=== PATIENT | male | born 1940 | race American Indian/Alaskan Native ===

== ENCOUNTER → 2024-06-26 16:20 | Outpatient (REF) | payer MEDICARE, BC, SELFPAY | LOC: CLAB 16:20 | DX: H60.332 Swimmer's ear, left ear (principal) | CPT/HCPCS: 87070; 87077 ==

== ENCOUNTER → 2024-06-28 16:29 | Outpatient (REF) | payer MEDICARE, BC, SELFPAY | LOC: RAD 16:29 | PROVIDERS: ATTENDING PHYSICIAN Physician Assistant | DX: H60.332 Swimmer's ear, left ear (principal) | CPT/HCPCS: 70480 ==

== ENCOUNTER → 2024-07-07 11:18 | Outpatient (REF) | payer MEDICARE, OTHER, SELFPAY | LOC: RCS 11:18 | PROVIDERS: ATTENDING PHYSICIAN Internal Medicine Cardiovascular Disease | DX: I35.0 Nonrheumatic aortic (valve) stenosis (principal) | CPT/HCPCS: 93306 ==

== ENCOUNTER 2024-08-24 10:42 | Emergency (ER) | payer MEDICARE, OTHER, BC, SELFPAY ==
[2024-08-24 11:00] VITALS: BP 143/78
--- NOTE | 2024-08-24 11:50 | ED.MUSCINJ ---
HPI-Injury
General
Chief Complaint: Fall
Source: patient and spouse
Exam Limitations: none
Time Seen by Provider: 08/24/24 11:35
Nursing documentation reviewed up to this point in time: agreed with
History of Present Illness-Injury
Is this injury a work related problem?: No
Is pt an associate of [facility]?: No
Initial Injury comments:
84-year-old male presents emergency room due to a fall. He tripped on the steps. He denies hitting his head. He does note that he fell recently. He complains of left shoulder pain.
Past History
Past History
ED Past Medical History: GERD, HTN, Hypercholesterolemia and NIDDM
ED Past Surgical History: Appendectomy
Social History
Tobacco: Non-smoker
Alcohol: None
Drug: None
Personal:
Living: with family
Review of Systems
Review of Systems
Allergies reviewed?: Yes
All Other Systems: Not applicable
Constitutional: Reports no symptoms
EENT: Reports no symptoms
Respiratory: Reports no symptoms
Cardiac: Reports no symptoms
ABD/GI: Reports no symptoms
: Reports no symptoms
Musculoskeletal: Reports joint pain
Skin: Reports no symptoms
Neurological: Reports no symptoms
Endocrine: Reports no symptoms
Hematologic/Lymphatic: Reports no symptoms
Psychiatric: Reports no symptoms
Phy Exam
Physical Exam
Physical Exam:
Physical Exam
General: no apparent distress, not acutely ill
Neck: supple. no meningeal signs. normal posterior pharynx
Heart: s1/s2 regular rate and rhythm, no murmur. equal radial
pulses.
HEENT: Pupils equal round reactive to light, EOMI
Lungs: no acute respiratory distress. clear bilaterally
Abdomen: normal bowel sounds. not tender. no CVAT
Neuro: alert and oriented. no focal neurological deficits cranial nerves II through XII intact
Skin: no rash
Psychiatric: well kept. interactive and cooperative
Extremities: no edema. no calf tenderness. negative homans. good distal pulses, tender to palpation left shoulder, decreased range of motion
Injury Course
Orders/Labs/Results
Orders:
Orders
08/24/24 11:47
Shoulder, Left 2 View CR [CR Shoulder - Left Min 2 View*] Urgent
Comment:
Reason For Exam: fall, left shoulder pain
08/24/24 11:48
CT Head W/o Iv Contrast Urgent
Comment:
Reason For Exam: fall
MDM/Problems Addressed
Differential Diagnosis Includes:
Intracranial hemorrhage, shoulder dislocation, shoulder fracture
MDM/Problems Addressed:
84-year-old male with fall, left shoulder contusion. No fracture or dislocation seen on x-ray. No signs of intracranial hemorrhage. Patient stable for discharge.
*Radiology
Radiology exam reviewed: preliminary read by ED provider (Left shoulder x-ray no fracture or dislocation) and radiology read reviewed (CT head no acute findings)
*Pulse Oximetry
Patient hypoxic: no
*Critical Care Note
Total Time (30-74mins, 75-104mins- exclusive of procedures): Not Applicable
Patient Management
Social determinants of health affecting care: Living situation and Strong social support
Escalation/DeEscalation of care consider admission/obs:
Admission not indicated
ED Attending Note
-
Portions of this chart may have been created with voice recognition software.� Occasional wrong word or��sound alike� substitutions may have occurred due to the inherent limitations of voice recognition software.
Discharge Plan
Departure
Patient Disposition: Home (Routine Discharge)
Date of Disposition: 08/24/24
Time of Disposition: 13:29
Patient with high blood pressure during this ER visit?: Yes
Condition: Good
Discharge Problem:
Contusion of left shoulder, Fall
Instructions: Preventing falls in adults, Shoulder pain, BLOOD PRESSURE
Referrals:
Chad Cortez MD [Active] - Call in 1-3 days for appt
UNKNOWN - PT DOES,NOT KNOW [Family Provider] -
Interventions
Interventions:
*Risk Screen - Suicide Last Done: 08/24/24 11:05
*Neglect/Abuse Screening Last Done: 08/24/24 11:05
Discharge Date and Time
Print Language: ITALIAN
[2024-08-24 13:00] VITALS: BP 134/70
== END 2024-08-24 13:35 | disposition home or self-care (01) ==
LOC: EMR 10:42
PROVIDERS: EMERGENCY PHYSICIAN Emergency Medicine
DX: S40.012A Contusion of left shoulder, initial encounter (principal); W19.XXXA Unspecified fall, initial encounter; K21.9 Gastro-esophageal reflux disease without esophagitis; I10 Essential (primary) hypertension; E78.00 Pure hypercholesterolemia, unspecified; E11.9 Type 2 diabetes mellitus without complications; Z90.49 Acquired absence of other specified parts of digestive tract
CPT/HCPCS: 99284; 70450; 73030

== ENCOUNTER → 2024-10-10 11:28 | Outpatient (REF) | payer MEDICARE, OTHER, SELFPAY | LOC: HWRAD 11:28 | PROVIDERS: ATTENDING PHYSICIAN Specialist; FAMILY PHYSICIAN Family Medicine | DX: I10 Essential (primary) hypertension (principal); E87.5 Hyperkalemia | CPT/HCPCS: 76770 ==

== ENCOUNTER 2024-10-11 22:54 | Inpatient (IN) | payer MEDICARE, BC, SELFPAY ==
[2024-10-11] VITALS (7 sets, daily range): BP systolic 125–169; BP diastolic 65–82; BMI 24.6
[2024-10-11 17:24] LABS: % Basophils 0.2 % (0-2); % Eosinophils 0.9 % (0-6); % Immature Granulocytes 1.1 % (0-0.5); % Lymphocytes 20.5 % (20.5-51.1); % Monocytes 17.7 % (1.7-9.3); % Neutrophils 59.6 % (42.2-75.2); Absolute Eosinophils 0.1 10^3/uL (0-0.7); Absolute Immature Granulocytes 0.1 10^3/uL (0-0.05); Absolute Lymphocytes 2.5 10^3/uL (1.2-3.4); Absolute Monocytes 2.2 10^3/uL (0.1-0.6); Absolute Neutrophils 7.4 10^3/uL (1.4-6.5); Hematocrit 39.4 % (39.0-52.0); Hemoglobin 13.5 g/dL (13.0-18.0); Mean Corp Hgb Conc. 34.3 g/dL (33.0-37.0); Mean Corpuscular Hgb 29.4 pg (27.0-31.0); Mean Corpuscular Volume 85.8 fL (80.0-94.0); Mean Platelet Volume 11.1 fL (7.4-10.4); Nucleated Red Blood Cells % 0 % (-); Platelet Count 213 10^3/uL (130-400); Red Blood Cell Count 4.59 10^6/uL (4.70-6.10); Red Cell Dist. Width 14.8 % (11.5-14.5); White Blood Cell Count 12.4 10^3/uL (4.8-10.8)
[2024-10-11 17:26] LABS: COVID-19 Antigen Negative (Negative)
[2024-10-11 17:33] LABS: ALT (SGPT) 25 U/L (0-50); AST (SGOT) 24 U/L (17-59); Albumin 3.8 g/dl (3.5-5.0); Alkaline Phosphatase 45 U/L (38-126); Blood Urea Nitrogen 44 mg/dl (9-20); Calcium 8.7 mg/dl (8.4-10.2); Carbon Dioxide 17 mmol/L (22-30); Chloride 105 mmol/L (98-107); Glucose 49 mg/dl (70-99); Potassium 4.7 mmol/L (3.5-5.1); Sodium 132 mmol/L (135-145); Total Bilirubin 0.4 mg/dl (0.2-1.3); Total Protein 6.7 g/dl (6.3-8.2); eGFR 49.25
[2024-10-11 18:00] LABS: Glucose - Point of Care 85 mg/dl (70-99)
--- NOTE | 2024-10-11 18:30 | ED.GENMED ---
History of Present Illness
General
Chief Complaint: Breathing Problem
Source: patient
Exam Limitations: none
Time Seen by Provider: 10/11/24 18:06
Nursing documentation reviewed up to this point in time: agreed with
History of Present Illness
History of Present Illness:
Patient presents to ED secondary to 3-day history of persistent cough, associated with wheezing and generalized weakness. Patient denies loss of appetite. Denies fever or chills. Denies nausea, vomiting, or diarrhea. Denies sick contact. Denies
recent travel. Denies headache. Denies sore throat. Today, patient also is complaining of lower leg weakness, similar to what he experienced when he had COVID-19 infection couple years ago.
Past History
Past History
ED Past Medical History: GERD, HTN, Hypercholesterolemia and NIDDM
ED Past Surgical History: Appendectomy
Social History
Tobacco: Non-smoker
Alcohol: None
Drug: None
Personal:
Living: with family
Review of Systems
Review of Systems
Allergies reviewed?: Yes
All Other Systems: ROS reviewed and negative except as documented in HPI and ROS
Constitutional: Reports no symptoms
EENT: Reports no symptoms
Respiratory: Reports cough and trouble breathing
Cardiac: Reports no symptoms
ABD/GI: Reports no symptoms
Musculoskeletal: Reports no symptoms
Skin: Reports no symptoms
Neurological: Reports no symptoms
Phy Exam
Physical Exam
Physical Exam:
Physical Exam
General: moderate distress, not acutely ill. afebrile
Head: nc/at. eomi
Neck: supple. no meningeal signs.
Heart: s1/s2 regular rate and rhythm, no murmur.
Lungs: mild respiratory distress. expiraotry wheezing bilaterally
Abdomen: normal bowel sounds. not tender.
Neuro: alert and oriented x 3. no focal neurological deficits
Skin: no rash
Psychiatric: well kept. interactive and cooperative
Extremities: no edema. no calf tenderness.
Scores
Heart Failure Risk
Heart Failure Risk Score: Not Applicable
Course
Orders/Labs/Results
Orders:
Orders
10/11/24 17:03
COVID-19 Antigen Urgent
Source: Nasal Swab
Complete Blood Count/With Diff Urgent
Comprehensive Metabolic Panel Urgent
Influenza A+B Rapid Molecular Urgent
JESSICA Source: Nasal Swab
Specimen Description:
10/11/24 18:06
CR Chest - 2 Views Urgent
Comment:
Reason For Exam: cough/sob
10/11/24 20:20
Guaifenesin/Codeine Solution [Robitussin AC] 10 ml PO NOW STA
Ipratropium/Albuterol Sulfate [Duoneb] 3 ml INH R NOW STA
10/11/24 21:24
CT Head W/o Iv Contrast Urgent
Comment:
Reason For Exam: slurred speech
Ipratropium/Albuterol Sulfate [Duoneb] 3 ml INH R NOW STA
10/11/24 21:25
Azithromycin 500 mg/250 ml [Zithromax Infusion] 500 mg in 250 ml IV NOW
Dexamethasone Sod Phosphate [Decadron] 6 mg IV NOW STA
10/11/24 22:00
Flush (0.9% Sodium Chloride) [Flush (Nss)] See Dose Instructions IV PER PROTOCOL
10/11/24 22:08
Admit/Transfer Patient As Directed
Co-Sign Provider:
Level of Care: Inpatient admission
Assign to:: Medical/Surgical
Physician / Group: Charla
Diagnosis: Acute Bronchitis
Reason for Hospitalization: IV steroids, nebs
Expected length of stay greater than two midnights?: Yes
ELOS- Estimated Length of Stay in days: 3
I certify the patient meets the requirements for IP care: Yes
10/11/24 22:09
PRN Pain Medication Management As Directed
May give lesser potent ordered pain med per pt: Yes
preference::
Protocol:: Medication orders for pain may be administered in a
manner that supports deferring to patient preference
when the pt is:
- Requesting an ordered lesser potent pain medication.
Least to most potent pain medications are defined
as: acetaminophen < NSAID < tramadol < opioids
(morphine, oxycodone, hydromorphone).
- Requesting a lesser dose of the same medication IF
ORDERED.
- Requesting a less intrusive route of administration
if both routes are prescribed by the provider (PO <
IV).
10/11/24 22:15
Code Status As Directed
Resuscitation Status: Full Code
Abnormal Lab Results
10/11/24
17:03
WBC 12.4 H 10^3/uL
(4.8-10.8)
RBC 4.59 L 10^6/uL
(4.70-6.10)
RDW 14.8 H %
(11.5-14.5)
MPV 11.1 H fL
(7.4-10.4)
Abs Immat Gran (auto) 0.1 H 10^3/uL
(0-0.05)
Absolute Neuts (auto) 7.4 H 10^3/uL
(1.4-6.5)
Absolute Monos (auto) 2.2 H 10^3/uL
(0.1-0.6)
Immature Gran % 1.1 H %
(0-0.5)
Monocytes % 17.7 H %
(1.7-9.3)
Sodium 132 L mmol/L
(135-145)
Carbon Dioxide 17 L mmol/L
(22-30)
BUN 44 H mg/dl
(9-20)
Creatinine 1.4 H mg/dL
(0.7-1.3)
Glucose 49 L* mg/dl
(70-99)
10/11/24 17:03
10/11/24 17:03
Vital Signs
Initial and Last Documented VS:
Initial Vital Signs
Temp Pulse Resp BP Pulse Ox
97.6 F 65 16 149/68 98
10/11/24 16:52 10/11/24 16:52 10/11/24 16:52 10/11/24 16:52 10/11/24 16:52
Last Documented Vital Signs
Temp Pulse Resp BP Pulse Ox
97.6 F 61 13 146/68 96
10/11/24 16:52 10/11/24 22:00 10/11/24 21:45 10/11/24 22:00 10/11/24 22:00
MDM/Problems Addressed
MDM/Problems Addressed:
Patient with persistent wheezing with tachypnea despite treatment. Chest x-ray does not reveal acute findings. Patient's presenting symptoms likely acute bronchitis with wheezing. Patient's subjective lower extremity weakness, likely secondary to
current illness, but will need to be reassessed during hospitalization. In addition, blood sugar to be monitored closely, with presenting hypoglycemia.
*Critical Care Note
Total Time (30-74mins, 75-104mins- exclusive of procedures): Not Applicable
ED Attending Note
-
Portions of this chart may have been created with voice recognition software.� Occasional wrong word or��sound alike� substitutions may have occurred due to the inherent limitations of voice recognition software.
Discharge Plan
Departure
Patient Disposition: Admit
Date of Disposition: 10/11/24
Time of Disposition: 21:29
Admit to: Telemetry
Presentation/result/management discussed w/ accepting MD/DO: Hospitalist
Discharge Problem:
Acute bronchitis, Hypoglycemia, Weakness
Interventions
Interventions:
*Risk Screen - Suicide Last Done: 10/11/24 16:52
*General Assessment Last Done: 10/11/24 16:52
*Neglect/Abuse Screening Last Done: 10/11/24 16:52
*ED COVID-19 Vaccine History Last Done: 10/11/24 18:02
ED- Cardiac Assessment Last Done: 10/11/24 18:02
ED- Pulmonary Assessment Last Done: 10/11/24 18:02
[2024-10-11 19:03] LABS: Glucose - Point of Care 85 mg/dl (70-99)
[2024-10-11] MEDS: DUONEB 3 ML INH ×2 (20:24→22:11)
[2024-10-11] MEDS: ROBITUSSIN AC 10 ML PO (20:24)
[2024-10-11 21:14] LABS: Glucose - Point of Care 76 mg/dl (70-99)
--- NOTE | 2024-10-11 21:32 | HPS.HSE ---
Family Physician
-
Family Physician: Ollie Oates
Chief Complaint
-
Cough
History of Present Illness
Patient is an 84 y/o male past medical history of valvular heart disease, hypertension, hyperlipidemia, diabetes mellitus, diabetic neuropathy and hypothyroidism who presents with cough. Patient reports cough for the past three days which he
describes as occasionally productive. He notes audible wheezing and increasing shortness of breath. He denies fever, sweats or chills. He reports lower extremity weakness over the past few days with inability to stand from a seated position and
inability to ambulate. Daughter at bedside notes slurred speech, which according to patient's has been present for the past few days.
Medical History
Past Medical History
Past Medical History: Reports Other
Additional Past Medical History:
Valvular Heart Disease: Mild/Moderate Aortic Stenosis, Mild/Moderate Tricuspid Regurgitation
Essential Hypertension
Hyperlipidemia
Diabetes Mellitus, Type II
Diabetic Neuropathy
Hypothyroidism
GERD
Glaucoma
Past Surgical History: Reports Other
Additional Past Surgical History:
Appendectomy
Social History
Tobacco: Non-smoker
Alcohol: Occasional
Family History
Family History: Not pertinent
Allergies / Home Medications
Allergies reflects when Allergies were last updated in [employer].
Home Medications with original date entered in [employer]
Allergy/Medication List:
Allergies
Allergy/AdvReac Type Severity Reaction Status Date / Time
No Known Allergies Allergy Verified 10/11/24 16:56
Home Medications
amlodipine 5 mg tablet 2.5 mg PO DAILY 10/11/24
carvedilol 6.25 mg tablet 6.25 mg PO BID 10/11/24
coenzyme Q10 100 mg capsule (CoQ-10) 200 mg PO BID 10/11/24
dorzolamide 22.3 mg-timolol 6.8 mg/mL eye drops 1 drp ophthalmic (eye) BID 10/11/24
ergocalciferol (vitamin D2) 1,250 mcg (50,000 unit) capsule (Vitamin D2) 1,250 mcg PO WAITE 10/11/24
ezetimibe 10 mg tablet 10 mg PO DAILY 10/11/24
fexofenadine 180 mg tablet 180 mg PO DAILY 10/11/24
folic acid 1 mg tablet 2 mg PO DAILY 10/11/24
glipizide 2.5 mg tablet, extended release 24 hr 2.5 mg PO BID 10/11/24
lansoprazole 30 mg capsule,delayed release 30 mg PO DAILY 10/11/24
latanoprost 0.005 % eye drops (Xalatan) 1 drp ophthalmic (eye) HS 10/11/24
levothyroxine 50 mcg tablet 50 mcg PO DAILY 10/11/24
lisinopril 20 mg tablet 20 mg PO DAILY 10/11/24
pitavastatin calcium 4 mg tablet 4 mg PO DAILY 10/11/24
pregabalin 100 mg capsule 100 mg PO Q12H 10/11/24
sitagliptin phosphate 100 mg tablet (Januvia) 100 mg PO DAILY 10/11/24
Review of Systems
-
A 12 point ROS was completed and negative except as noted: Yes
Constitutional: Denies Fever
Respiratory: Reports Cough and Trouble Breathing
Cardiac: Denies Chest Pain or Palpitations
Physical Exam
Vital Signs
Vital Signs
Temp Pulse Resp BP Pulse Ox
97.6 F 65 16 152/74 98
10/11/24 16:52 10/11/24 18:01 10/11/24 18:02 10/11/24 18:00 10/11/24 18:01
Physical Exam
General: Comfortable and Conversant
HEENT: Anicteric and Moist mucous membranes
Respiratory: Wheezes (Diffuse) and Non Labored Respirations
Cardiac: S1/S2, Regular Rhythm and Murmur
GI: Soft and Non Tender
Rectal: Deferred by Provider
Musculoskeletal: No Clubbing, No Cyanosis and No Edema
Skin: Warm and Dry
Neuro: Awake, Alert, Oriented and Nonfocal/grossly intact
Laboratory Results
-
10/11/24 17:03
10/11/24 17:03
Laboratory Results
Total Bilirubin 0.4 mg/dl (0.2-1.3) 10/11/24 17:03
AST 24 U/L (17-59) 10/11/24 17:03
ALT 25 U/L (0-50) 10/11/24 17:03
Alkaline Phosphatase 45 U/L (38-126) 10/11/24 17:03
Data Reviewed
-
Diagnostic Radiology: Image Personally Visualized and interpreted
CT Scan: Other (Head CT Pending)
Lab Data: Labs Reviewed by me
Impression/Plan
-
Acute Bronchitis
-Continue Decadron 4mg q8h
-Continue DuoNeb WID and PRN
-Continue Mucinex
-Encourage use of incentive spirometer and acapella
Elevated Creatinine, suspect underlying CKD
-Hold Lisinopril
-Recheck labs in AM
Slurred Speech / Lower Extremity Weakness, doubt acute stroke
-Await Head CT
-Consult PT/OT and Speech
Diabetes Mellitus, Type II
-Patient initially with hypoglycemia upon presentation
-Hold Glipizide and Januvia
-Check HgbA1c
-Monitor sugars and continue coverage insulin
Valvular Heart Disease: Mild/Moderate Aortic Stenosis, Mild/Moderate Tricuspid Regurgitation
-Monitor Is&Os and Daily Weights
Essential Hypertension
-Continue amlodipine and carvedilol
-Hold lisinopril
Hyperlipidemia
-Continue Zetia and Pitavastatin
Diabetic Neuropathy
-Continue Lyrica
Hypothyroidism
-Continue levothyroxine
GERD
-Continue PPI
Glaucoma
-Continue Xalatan and Dorzolamide/Timolol
DVT proph: SC Heparin
Code Status: Full Code
[2024-10-11] MEDS: DECADRON 6 MG IV (22:14)
[2024-10-11] MEDS: ZITHROMAX INFUSION 250 IV (22:17)
--- NOTE | 2024-10-11 22:20 | W.PN.UPDATE ---
Addendum entered and electronically signed by Lakesha Dunham MD 10/11/24 22:29:
Check Speech and swallow. PT/OT.
Original Note:
Update Note
Progress Note Update
This is an addendum to the H&P written by Marie Martinez on 10/11/2024. Patient seen and examined independently with PA.
84-year-old male past medical history of hypertension, GERD, hypercholesteremia, diabetes, diabetic neuropathy presenting with 3-day history of cough, wheezing and weakness. No fevers or chills or nausea vomiting or diarrhea. No sick contacts. No
headache.
Patient also with bilateral leg weakness for a week when he ambulates. 3 days of slurred speech.
COVID and influenza are negative. Chest x-ray appears to show no infiltrate although report pending.
Labs show leukocytosis. Creatinine of 1.4 which seems to be CKD as per external medical summary and patient.
Blood sugar of 49.
Presentation consistent with acute bronchitis. DuoNebs, dexamethasone. Hold further azithromycin given in ER. Leukocytosis likely due to recent Medrol Dosepak. No focal neurological deficits to suggest stroke.
Patient also with hypoglycemia which improved with eating. A1c of 7.1 two months ago. Hold glipizide and Januvia for now, likely does not need glipizide moving forward
CT head pending to evaluate weakness and change in speech. Think that he can follow-up with neurology as outpatient if he continues to have the symptoms.
Hold lisinopril for now although creatinine 1.4 likely CKD.
[2024-10-12] MEDS: COSOPT EYE DROPS 1 DROP OPHTH ×3 (00:58→20:06)
[2024-10-12] MEDS: XALATAN OPHTHALMIC SOLUTION 1 DROP OPHTH ×2 (00:58→20:06)
[2024-10-12 03:14] LABS: Glucose - Point of Care 185 mg/dl (70-99)
[2024-10-12 03:29] VITALS: BP 155/76
[2024-10-12] MEDS: DECADRON 4 MG IV ×3 (05:59→20:06)
[2024-10-12] MEDS: SYNTHROID 50 MCG PO (05:59)
--- NOTE | 2024-10-12 06:18 | PTCARENOTE ---
Pt received from ER aaox3 able to make his needs known.Denies pain. Pt was a pullover from stretcher.Pt maintained on fall precautions.GUM WORKER made aware of no [facility] ordered for pt. Pt resting comfortably.Plan of care continued.
[2024-10-12 07:32] VITALS: BP 155/76
[2024-10-12 07:55] LABS: Hematocrit 40.5 % (39.0-52.0); Hemoglobin 14.1 g/dL (13.0-18.0); Mean Corp Hgb Conc. 34.8 g/dL (33.0-37.0); Mean Corpuscular Hgb 29.3 pg (27.0-31.0); Mean Platelet Volume 12.3 fL (7.4-10.4); Platelet Count 200 10^3/uL (130-400); Red Blood Cell Count 4.82 10^6/uL (4.70-6.10); Red Cell Dist. Width 14.6 % (11.5-14.5); White Blood Cell Count 8.4 10^3/uL (4.8-10.8)
[2024-10-12 07:57] LABS: Blood Urea Nitrogen 39 mg/dl (9-20); Calcium 9.1 mg/dl (8.4-10.2); Carbon Dioxide 16 mmol/L (22-30); Chloride 109 mmol/L (98-107); Estimated Creatinine Clearance 44 ml/min; Glucose 209 mg/dl (70-99); Magnesium 2.1 mg/dl (1.6-2.3); Potassium 5.2 mmol/L (3.5-5.1); Sodium 137 mmol/L (135-145); eGFR > 60.00
[2024-10-12] MEDS: DUONEB 3 ML INH ×4 (07:57→19:52)
[2024-10-12 08:10] LABS: Glucose - Point of Care 195 mg/dl (70-99)
[2024-10-12 09:03] VITALS: BMI 24.4
[2024-10-12] MEDS: HEPARIN SC ×4 (09:18→21:33)
[2024-10-12] MEDS: FOLVITE 2 MG PO (09:21)
[2024-10-12] MEDS: MUCINEX 600 MG PO ×2 (09:21→20:06)
[2024-10-12] MEDS: LOW STRENGTH ASPIRIN 81 MG PO (09:21)
[2024-10-12] MEDS: COREG 6.25 MG PO ×2 (09:21→20:06)
[2024-10-12] MEDS: NORVASC 2.5 MG PO (09:21)
[2024-10-12] MEDS: LYRICA 100 MG PO ×2 (09:22→20:05)
[2024-10-12] MEDS: LIPITOR 20 MG PO (09:22)
[2024-10-12] MEDS: CLARITIN 10 MG PO (09:22)
[2024-10-12] MEDS: FLUSH (NSS) 1 FLUSH IV ×2 (09:22→13:51)
[2024-10-12] MEDS: PROTONIX 40 MG PO (09:22)
--- NOTE | 2024-10-12 09:23 | W.PN.HOSP.TC ---
Addendum entered and electronically signed by Junito Anderson MD 10/12/24 22:31:
Attending Addendum-
I saw and evaluated the patient. I reviewed the resident�s note and agree with findings and plan as documented in the resident�s note. Sub: Seen with present. Patient shea he feels weak SOB and 'run down' Complains of non productive cough. Full
12 point ROS reviewed and negative except as documented Exam: Vitals reviewed in chart GEN-NAD Heart RRR 3/6 SM @ RUSB lungs scattered expiratory wheeze abd soft LE no edema
Plan:
#Acute Bronchitis-likely viral
-on RA
-flu and covid negative
-Continue Decadron 4mg q8h
-Continue DuoNeb WID and PRN
-Continue Mucinex
-Encourage use of incentive spirometer and acapella
-check procal
-hold on abx for now
# Leukocytosis
- resolved
- check CBC in am
# URIEL
- prerenal
- resolving
- cont to Hold Lisinopril
- Recheck labs in AM
# Hyperkalemia
- hold lisinopril
- hold on lokelma for now
- repeat BMP in am
# Diabetes Mellitus, Type II
-Patient initially with hypoglycemia now hyperglycemic likely due to steroids
-restart januvia
-Hold Glipizide
-[id number]
-Monitor sugars and continue SSI
# Valvular Heart Disease: Mild/Moderate Aortic Stenosis, Mild/Moderate Tricuspid Regurgitation
-Monitor Is&Os and Daily Weights
# Essential Hypertension
-Continue amlodipine and carvedilol
-Hold lisinopril
# Hyperlipidemia
-Continue Zetia and Pitavastatin
# Diabetic Neuropathy
-Continue Lyrica
# Hypothyroidism
-Continue levothyroxine
# GERD
-Continue PPI
# Glaucoma
-Continue Xalatan and Dorzolamide/Timolol
DVT proph: SC Heparin
Code Status: Full Code
ACP
Patient consented to discuss, was with , time spent explanation of advance directives, changes in health status, patient�s health care wishes if the patient becomes unable to make health decisions, goals of care, code status, and prognosis 'yes
its ok to intubate if needed'- 16 minutes
Time spent coordinating care, review of plan of care with resident, personally reviewed previous records in EMR, med rec, labs, radiology, d/w nursing, family total time documented is exclusive of any additional time listed that was spent in advance
care planning discussion -�55 minutes
Original Note:
Today's Communication/Plan
-
procal
restart januvia
hold lisinopril and glipizide
Assessment / Plan
Assessment / Plan
84-year-old male past medical history of hypertension, GERD, hypercholesteremia, diabetes, diabetic neuropathy presented with 3-day history of cough, wheezing and weakness.
# Acute bronchitis
# Shortness of breath
-- COVID and flu negative
-- Chest x-ray with no cardiopulmonary process
-- continue DuoNebs, dexamethasone 4mg q8
-- Status post azithromycin in the ER
-- Encourage incentive spirometer
-- Continue Mucinex
-- check procal
# metabolic acidosis
-- improving
-- continue to monitor for now
# Leukocytosis
-- resolved
# Bilateral leg weakness
--No focal neurological deficits on physical exam
-- ct: No acute intracranial abnormality noted. Chronic microvascular white matter ischemic disease. Atrophy.
-- Consider follow-up with neurology as outpatient
-- PT OT eval
# Valvular heart disease
-- Echocardiogram 06/2024 was unremarkable with only mild or [id number] tricuspid and aortic disease.
-- Repeat testing in 2 years, per cardiology from record review.
# Slurred speech
-- Resolved per patient
-- speech/swallow recs regular with thin liquids.
# CKD; unclear
-- Elevated potassium of 5.2
-- Hold lisinopril
# Diabetes mellitus
# Hypoglycemia
-- HbA1c; 7.1 2 months ago per chart review
-- Current A1c is 6.6
-- Home regimen includes Januvia and glipizide;
-- GLipizide hold for now
-- he is now hyperglycemic- restart januvia and sliding scale
# Essential hypertension
--Continue amlodipine 2.5 mg, carvedilol 6.25 mg
--Hold lisinopril
#Glaucoma
--Continue Xalatan and Dorzolamide/Timolol
# GERD-continue lansoprazole
# Diabetic neuropathy-continue pregabalin
# Hypothyroidism-continue levothyroxine
# Hyperlipidemia-continue pitavastatin and Zetia
DVT prophylaxis SC heparin
Full code
Anticipated Discharge: Within 24 hours
Subjective/Interval History
-
Date of Service: October 12, 2024
Complains of ongoing wheezing, trouble breathing and cough.
Reports no concern with swallowing and speech
Complains of some weakness in bilateral lower extremities for last few days
Objective Data
-
Labs:
Laboratory Results
10/12/24
06:56
WBC 8.4
Hgb 14.1
Hct 40.5
Plt Count 200
Sodium 137
Potassium 5.2 H
Chloride 109 H
Carbon Dioxide 16 L
BUN 39 H
Creatinine 1.1
Glucose 209 H
Calcium 9.1
Vital Signs:
Vital Signs
Temp Pulse Resp BP Pulse Ox
98.4 F 73 16 155/76 97
10/12/24 07:32 10/12/24 07:59 10/12/24 07:59 10/12/24 07:32 10/12/24 08:49
I&O
10/11/24 10/12/24 10/13/24
06:59 06:59 06:59
Output Total 300 / 300
Balance -300 / -300
Review of Systems
-
History Source: Patient
Constitutional: Reports No Symptoms
EENT: Reports No Symptoms Reported
Respiratory: Reports Cough, Trouble Breathing and Wheezing
Cardiac: Reports No Symptoms
Abdomen/GI: Reports No Symptoms
Genitourinary: Reports No Symptoms
Skin: Reports No Symptoms
Neuro: Reports Weakness (Lower extremity)
Hematologic / Lymphatic: Reports No Symptoms
Physical Exam
-
General: Well Developed, Well Nourished, Respiratory Distress and Conversant
HEENT: Normocephalic and Atraumatic
Respiratory: Wheezes (Diffused left-sided)
Cardiac: Regular Rhythm and S1/S2
GI: Soft, Nontender and Nondistended
Musculoskeletal: No Clubbing, No Cyanosis and No Edema
Skin: Warm and Dry
Neuro: Awake, Alert, Oriented, No Motor Deficits and No Sensory Deficits
Psych: Calm
Data Reviewed
-
Diagnostic Radiology: Report Reviewed by me
CT Scan: Report Reviewed by me
Ultrasound: Report Reviewed by me
Labs: Labs Reviewed by me, Discussed with Physician and Discussed with Patient
[2024-10-12 09:43] LABS: Glycohemoglobin (HgbA1c) 6.6 % (4.0-5.6)
[2024-10-12] MEDS: NOVOLOG FLEXPEN-LOW RESISTANCE 1 UNITS SC (10:10)
--- NOTE | 2024-10-12 10:18 | PTOTSP ---
Speech Therapy Evaluation:
Pt presents with oropharyngeal swallow function that was WFL at bedside. Adequate oral phase and no overt s/sx of aspiration with thin liquids or regular solids. Pt passed 3oz swallow screen, CXR without acute cardiopulmonary process, and WBC WNL.
In regard to slurred speech, pt reported this was d/t his mouth being dry, which has completely resolved. Pt 100% intelligible at the conversation level and head CT negative for acute intracranial abnormality.
Recommend:
1. Continue regular solids and thin liquids
2. Medications as tolerated
3. General aspiration and reflux precautions
4. Oral care 3x/daily
5. HR DIRECTOR to s/o - please reconsult if indicated
[2024-10-12 11:46] LABS: Glucose - Point of Care 295 mg/dl (70-99)
[2024-10-12] MEDS: JANUVIA 100 MG PO (12:19)
[2024-10-12] MEDS: NOVOLOG FLEXPEN-LOW RESISTANCE 3 UNITS SC (13:50)
[2024-10-12 13:56] LABS: Procalcitonin < 0.05 ng/ml (0.0-0.25)
[2024-10-12 14:50] VITALS: BP 136/68; BP 160/78; PULSE 65; PULSE 71; O2SAT 98
[2024-10-12 15:00] VITALS: BP 136/68; BP 160/78; PULSE 67; PULSE 71; O2SAT 98
[2024-10-12 15:50] VITALS: BP 144/67
--- NOTE | 2024-10-12 16:27 | PTCARENOTE ---
Pt AAO x3, SMILEY; OOB in room/to chair with walker/PT; kenrick well, pt c/o 'legs weak'. Speech clear; NIHSS 2 (Lt eye blind). VSS. On room air- pulse ox 99%, no SOB noted. Abd large, soft, kenrick PO well. Voids clear yellow urine in urinal. Resting
comfortably at present. Will continue to monitor.
[2024-10-12 16:40] LABS: Glucose - Point of Care 215 mg/dl (70-99)
[2024-10-12] MEDS: NOVOLOG FLEXPEN-LOW RESISTANCE 2 UNITS SC (17:32)
[2024-10-12 21:08] LABS: Glucose - Point of Care 260 mg/dl (70-99)
[2024-10-12 23:22] VITALS: BP 144/74
[2024-10-13] MEDS: SYNTHROID 50 MCG PO (05:50)
[2024-10-13] MEDS: DECADRON 4 MG IV (05:50)
[2024-10-13 05:54] VITALS: BMI 24.1
--- NOTE | 2024-10-13 07:11 | W.PN.HOSP.TC ---
Addendum entered and electronically signed by Junito Anderson MD 10/13/24 22:06:
Attending Addendum-
I saw and evaluated the patient. I reviewed the resident�s note and agree with findings and plan as documented in the resident�s note. Sub: Feels great. wants to go home. Denies cough SOB fevers chills. Full 12 point ROS reviewed and negative
except as documented Exam: Vitals reviewed in chart GEN-NAD Heart RRR 3/6 SM @ RUSB lungs CTA B/L abd soft LE no edema
Plan:
#Acute Bronchitis-likely viral
-on RA
-flu and covid negative
-Continue DuoNeb WID and PRN
-Continue Mucinex
-Encourage use of incentive spirometer and acapella
-procal-neg
-hold on abx for now
# Leukocytosis
- from steroids
- check CBC as OP
# Metabolic Acidosis
- from URIEL
- repeat BMP as OP
# URIEL
- prerenal
- resolved
- cont to Hold Lisinopril
- Recheck labs as OP
# Hyperkalemia
- resolved
- hold lisinopril
- hold on lokelma for now
- repeat BMP as OP
# Diabetes Mellitus, Type II
-Patient initially with hypoglycemia now hyperglycemic likely due to steroids
-restart januvia
-restart Glipizide
-[id number]
-Monitor sugars and continue SSI
# Valvular Heart Disease: Mild/Moderate Aortic Stenosis, Mild/Moderate Tricuspid Regurgitation
-Monitor Is&Os and Daily Weights
# Essential Hypertension
-uncontrolled
-increase amlodipine and carvedilol
-Hold lisinopril
-additional dose amlo given prior to DC
# Hyperlipidemia
-Continue Zetia and Pitavastatin
# Diabetic Neuropathy
-Continue Lyrica
# Hypothyroidism
-Continue levothyroxine
# GERD
-Continue PPI
# Glaucoma
-Continue Xalatan and Dorzolamide/Timolol
DVT proph: SC Heparin
Code Status: Full Code
Time spent coordinating care, DC planning, review of DC plan of care with resident, transition of care, review of records, med rec/scripts sent electronically, consults, notes, d/w consultants, nursing, family, and CM, PCP updated�33 mins
Original Note:
Today's Communication/Plan
-
d/c home today
Continue to hold lisinopril
5-day steroid upon discharge
Assessment / Plan
Assessment / Plan
84-year-old male past medical history of hypertension, GERD, hypercholesteremia, diabetes, diabetic neuropathy presented with 3-day history of cough, wheezing and weakness.
# Acute bronchitis
# Shortness of breath
-- Significantly improved
-- Likely viral
-- COVID and flu negative
-- Chest x-ray with no cardiopulmonary process
-- d/c DuoNebs and dexamethasone 4mg q8 upon discharge
-- Status post azithromycin in the ER
-- Encourage incentive spirometer
-- Continue Mucinex
-- Procal negative
-- Prednisone 40 mg for 5 days upon discharge
# metabolic acidosis
-- improving
# Leukocytosis
-- mild; likely due to steroids
# Bilateral leg weakness/ambulatory dysfunction
--No focal neurological deficits on physical exam
-- ct: No acute intracranial abnormality noted. Chronic microvascular white matter ischemic disease. Atrophy.
-- PT OT eval appreciated
-- Walker prescription provided prior PT request
# Valvular heart disease
-- Echocardiogram 06/2024 was unremarkable with only mild or [id number] tricuspid and aortic disease.
-- Repeat testing in 2 years, per cardiology from record review.
# Slurred speech
-- Resolved per patient
-- speech/swallow recs regular with thin liquids.
# URIEL on CKD; unclear CKD history
-- Hyperkalemia resolved; cr 1.1
-- Continue to hold lisinopril
# Diabetes mellitus
# Hypoglycemia
-- HbA1c; 7.1 2 months ago per chart review
-- Current A1c is 6.6
-- Home regimen includes Januvia and glipizide;
-- Glipizide hold for now; potentially patient might need it upon discharge however he plans to discuss it with PCP
-- Continue januvia
# Essential hypertension
--Continue amlodipine 2.5 mg, carvedilol 6.25 mg
--Hold lisinopril
-- Amlodipine can be increased to 5 mg outpatient if blood pressure continues to stay elevated
#Glaucoma
--Continue Xalatan and Dorzolamide/Timolol
# GERD-continue lansoprazole
# Diabetic neuropathy-continue pregabalin
# Hypothyroidism-continue levothyroxine
# Hyperlipidemia-continue pitavastatin and Zetia
DVT prophylaxis SC heparin
Full code
Anticipated Discharge: Today
Subjective/Interval History
-
Date of Service: October 13, 2024
Offers no new complaints. Feeling much better. Insisting of going home today.
Objective Data
-
Labs:
Laboratory Results
Laboratory Data
Total Bilirubin 0.7 mg/dl (0.2-1.3) 10/13/24 06:54
AST 30 U/L (17-59) 10/13/24 06:54
ALT 38 U/L (0-50) 10/13/24 06:54
Alkaline Phosphatase 49 U/L (38-126) 10/13/24 06:54
Laboratory Data
WBC 13.2 10^3/uL (4.8-10.8) H 10/13/24 06:53
Hgb 15.3 g/dL (13.0-18.0) 10/13/24 06:53
Plt Count 217 10^3/uL (130-400) 10/13/24 06:53
eGFR > 60.00 10/13/24 06:54
Lab Results - Chemistry
10/11/24 10/12/24 10/13/24
17:03 06:56 06:54
BUN 44 H 39 H 39 H
Creatinine 1.4 H 1.1 1.1
Estimated Creat Clear 44 44
Albumin 3.8 4.2
10/13/24 10/13/24
06:53 06:54
WBC Pending
Hgb Pending
Hct Pending
Plt Count Pending
Sodium Pending
Potassium Pending
Chloride Pending
Carbon Dioxide Pending
BUN Pending
Creatinine Pending
Glucose Pending
Calcium Pending
Total Bilirubin Pending
AST Pending
ALT Pending
Alkaline Phosphatase Pending
Vital Signs:
Vital Signs
Temp Pulse Resp BP Pulse Ox
97.6 F 64 18 144/74 96
10/12/24 23:22 10/12/24 23:22 10/12/24 23:22 10/12/24 23:22 10/12/24 23:22
I&O
10/12/24 10/13/24 10/14/24
06:59 06:59 06:59
Intake Total 1080 / 1080
Output Total 300 / 300 1970 / 1970
Balance -300 / -300 -890 / -890
Review of Systems
-
History Source: Patient
Constitutional: Reports No Symptoms
EENT: Reports No Symptoms Reported
Respiratory: Reports No Symptoms
Cardiac: Reports No Symptoms
Abdomen/GI: Reports No Symptoms
Genitourinary: Reports No Symptoms
Skin: Reports No Symptoms
Neuro: Reports No Symptoms
Hematologic / Lymphatic: Reports No Symptoms
Physical Exam
-
General: Well Developed, Well Nourished, No Apparent Distress and Conversant
HEENT: Normocephalic and Atraumatic
Respiratory: Clear to Auscultation
Cardiac: Regular Rhythm and S1/S2
GI: Soft, Nontender and Nondistended
Musculoskeletal: No Clubbing, No Cyanosis and No Edema
Skin: Warm and Dry
Neuro: Awake, Alert, Oriented, No Motor Deficits and No Sensory Deficits
Psych: Calm
Data Reviewed
-
Labs: Labs Reviewed by me, Discussed with Physician and Discussed with Patient
[2024-10-13 07:15] VITALS: BP 174/79
[2024-10-13 07:52] LABS: Hematocrit 44.3 % (39.0-52.0); Hemoglobin 15.3 g/dL (13.0-18.0); Mean Corp Hgb Conc. 34.5 g/dL (33.0-37.0); Mean Corpuscular Hgb 29.1 pg (27.0-31.0); Mean Corpuscular Volume 84.4 fL (80.0-94.0); Mean Platelet Volume 11.8 fL (7.4-10.4); Platelet Count 217 10^3/uL (130-400); Red Blood Cell Count 5.25 10^6/uL (4.70-6.10); Red Cell Dist. Width 14.8 % (11.5-14.5); White Blood Cell Count 13.2 10^3/uL (4.8-10.8)
[2024-10-13] MEDS: LOW STRENGTH ASPIRIN 81 MG PO (07:56)
[2024-10-13] MEDS: JANUVIA 100 MG PO (07:57)
[2024-10-13] MEDS: MUCINEX 600 MG PO (07:57)
[2024-10-13] MEDS: PROTONIX 40 MG PO (07:57)
[2024-10-13] MEDS: FOLVITE 2 MG PO (07:57)
[2024-10-13] MEDS: NORVASC 2.5 MG PO ×2 (07:57→15:05)
[2024-10-13] MEDS: CLARITIN 10 MG PO (07:57)
[2024-10-13] MEDS: COREG 6.25 MG PO (07:58)
[2024-10-13] MEDS: LIPITOR 20 MG PO (07:58)
[2024-10-13] MEDS: LYRICA 100 MG PO (07:58)
[2024-10-13 07:59] LABS: Glucose - Point of Care 175 mg/dl (70-99)
[2024-10-13] MEDS: NOVOLOG FLEXPEN-LOW RESISTANCE 1 UNITS SC (07:59)
[2024-10-13] MEDS: COSOPT EYE DROPS 1 DROP OPHTH (08:02)
[2024-10-13] MEDS: HEPARIN 5000 UNITS SC (08:06)
[2024-10-13 08:21] LABS: ALT (SGPT) 38 U/L (0-50); AST (SGOT) 30 U/L (17-59); Albumin 4.2 g/dl (3.5-5.0); Alkaline Phosphatase 49 U/L (38-126); Blood Urea Nitrogen 39 mg/dl (9-20); Calcium 9.5 mg/dl (8.4-10.2); Carbon Dioxide 15 mmol/L (22-30); Chloride 105 mmol/L (98-107); Estimated Creatinine Clearance 44 ml/min; Glucose 187 mg/dl (70-99); Sodium 134 mmol/L (135-145); Total Bilirubin 0.7 mg/dl (0.2-1.3); Total Protein 7.3 g/dl (6.3-8.2); eGFR > 60.00
[2024-10-13] MEDS: DUONEB 3 ML INH ×2 (08:34→11:09)
--- NOTE | 2024-10-13 11:04 | CM ---
Reviewed the chart notes and spoke with the patient at the bedside. The patient resides with his spouse in a one story home with two steps to enter. The patient reports only DME is a shower chair. The patient has had VN in the past, but could not
recall the name of the agency. No SNF. The patient confirmed his pharmacy of choice is the [facility]. CM continues to be available to patient/family and is monitoring medical plan for needs at discharge.
Plan: Discharge to home when medically stable.
[2024-10-13 11:44] LABS: Glucose - Point of Care 248 mg/dl (70-99)
[2024-10-13 12:25] VITALS: PULSE 67; O2SAT 98
[2024-10-13] MEDS: NOVOLOG FLEXPEN-LOW RESISTANCE 2 UNITS SC (12:31)
--- NOTE | 2024-10-13 13:12 | W.DCSUMMARY ---
Addendum entered and electronically signed by Junito Anderson MD 10/13/24 22:07:
Read, reviewed, and agree. See same day progress note for additional details. Dose amlodipine given prior to DC.
Henry Anderson MD
Original Note:
Documented by User: Ramin Peñaloza MD, Resident 10/13/24 17:54
Discharge Summary
Discharge Data
Date of Admission: 10/11/24
Date of Discharge: 10/13/24
-
Pending Results: No
Hospital Course
Discharging Physician : Ramin Peñaloza MD ; Junito Anderson MD
Disposition : Home
Primary care physician : Ollie Oates MD
Principal Discharge diagnosis : Acute Bronchitis-likely viral
Chronic Discharge diagnosis : Leukocytosis, URIEL on CKD, Hyperkalemia, DM 2, Valvular Heart Disease, Essential Hypertension, Hyperlipidemia, GERD, Hypothyroidism, Diabetic Neuropathy, Glaucoma
Hospital Course : 84-year-old male with known past medical history of valvular heart disease, hypertension, hyperlipidemia, diabetes mellitus, diabetic neuropathy, hypothyroidism and GERD presented in the emergency department with complaints of
cough and shortness of breath.
1-Cough and shortness of breath
-started 3 days prior to arrival in the hospital. He informed us that occasionally the cough becomes productive and he has been noticing audible wheeze and progressive shortness of breath for couple of days. He denied any systemic symptoms
including fever, sweats or chills.
-COVID and influenza were negative. Chest x-ray did not show infiltrate report below. Procalcitonin was negative .No antibiotics were ordered except 1 dose of azithromycin in the ER.
-He was started on DuoNebs in addition to Mucinex. He also received Decadron 6 mg in the ED and 4 mg every 8h during his stay at the hospital. He was encouraged to use incentive spirometer. His symptoms significantly improved with management and
he was discharged with prescription of prednisone 40 mg for 5 days. On physical exam there was no wheeze on day of discharge and he did not require any supplemental oxygen support for breathing.
There was mild leukocytosis likely due to steroid use.
-He had mild metabolic acidosis.
2-Weakness of bilateral lower extremities-ambulatory dysfunction
-There was no focal neurological deficit on physical exam
-Patient worked with physical therapist and was able to ambulate with some assistance. Per PT request walker prescription was provided upon discharge.
3-Slurred speech per family
-Received CT head which was unremarkable results below
-Speech therapist evaluated him and recommended regular diet
-After recovering from cough and shortness of breath he stated that he did not notice any problem with his speech and he believes that the cough was making it hard for him to speak.
4-URIEL on CKD with hyperkalemia
-Creatinine was found to be 1.4 and potassium was also elevated 5.2
-Lisinopril was held
-Creatinine went down to 1.1 and potassium to 5.0.
5-Diabetes mellitus type 2
-Found to have blood sugar of 49 on arrival. Initially both his home medications including sitagliptin and glipizide were held and he was started on insulin sliding scale. However next day sitagliptin was initiated after reviewing the A1c of 6.6.
It was discussed with him that there is a possibility that he might not need glipizide at this time however he stated that he will discuss with PCP Dr. Oates outpatient for further changes in the medications. He was instructed if he elect to use
glipizide to use it with meals to avoid hypoglycemia.
6-Essential hypertension
-Home medications including amlodipine 2.5 mg and carvedilol 6.25 mg were continued and lisinopril was put on hold due to elevated potassium his blood pressure remained mostly in 140s with 1 reading of 170s. He was offered to increase amlodipine
dose to 5 mg however he stated that he will discuss with Dr. Oates outpatient for any changes. He was advised to complete BMP in 1 week and hold off on lisinopril for now. On day of discharge his blood pressure was found to be in 170s and he was
given 1 additional dose of amlodipine 2.5 mg before leaving the hospital.
Other chronic conditions including hyper lipidemia, diabetic neuropathy, hypothyroidism, GERD, glaucoma was managed with home regimen.
Important imaging findings : US Renal With Bladder:
No focal renal abnormality bilaterally.
Confirmation of bilateral ureteral jets.
Urinary bladder incompletely distended with findings suggesting some wall thickening, perhaps more focally prominent near the gallbladder fundus as well as some trabeculation. Suggest more complete evaluation of the urinary bladder such as with
cystoscopy or CT with intravenous contrast.
CR Chest - 2 Views : No acute cardiopulmonary process.
CT head: No acute intracranial abnormality noted. Chronic microvascular white matter ischemic disease. Atrophy
Discharge Plan
-
Patient Disposition: Home (Routine Discharge)
Discharge Diagnosis/Procedures: Acute Bronchitis-likely viral, Leukocytosis, URIEL on CKD, Hyperkalemia, DM 2, Valvular Heart Disease, Essential Hypertension, Hyperlipidemia, GERD, Hypothyroidism, Diabetic Neuropathy, Glaucoma
Condition: Good
Diet: Diabetic, Carb Controlled
Activity: No restrictions
Driving Restrictions: As prior to admission
Bathing Restrictions: None
Blood Work: BMP in 1 to 2 weeks
Referrals:
Ollie Oates MD [Family Provider] - in less than 1 week
Additional Discharge Medication Instructions: Take prednisone 20 mg 2 tablets by mouth for 5 days.
Continue to hold lisinopril tablet until follow-up with PCP to discuss restarting versus increasing amlodipine dose.
Prescription for walker to help with ambulation was provided upon discharge.
Can use [id number] cough suppressant for residual cough.
Prescriptions:
New
prednisone 20 mg tablet
40 mg PO DAILY Qty: 10 0RF
Rx Instructions:
Take prednisone 20 mg 2 tablets every day for 5 days.
Continued
levothyroxine 50 mcg Tablet
50 mcg PO DAILY
fexofenadine 180 mg Tablet
180 mg PO DAILY
lansoprazole 30 mg Capsule,Delayed Release(Dr/Ec)
30 mg PO DAILY
folic acid 1 mg Tablet
2 mg PO DAILY
coenzyme Q10 [CoQ-10] 100 mg Capsule
200 mg PO BID
latanoprost [Xalatan] 0.005 % drops
1 drp ophthalmic (eye) HS
carvedilol 6.25 mg tablet
6.25 mg PO BID
amlodipine 5 mg tablet
2.5 mg PO DAILY
glipizide 2.5 mg tablet extended release 24hr
2.5 mg PO BID
dorzolamide-timolol 22.3-6.8 mg/mL drops
1 drp ophthalmic (eye) BID
ergocalciferol (vitamin D2) [Vitamin D2] 1,250 mcg (50,000 unit) capsule
1,250 mcg PO WAITE
ezetimibe 10 mg tablet
10 mg PO DAILY
pregabalin 100 mg capsule
100 mg PO Q12H
Januvia 100 mg tablet
100 mg PO DAILY
pitavastatin calcium 4 mg tablet
4 mg PO DAILY
Held
lisinopril 20 mg Tablet
20 mg PO DAILY
Hold Instructions: Resume on 10/27/24. Continue to hold until see the PCP to discuss restarting versus increasing amlodipine dose.
Discharge Orders:
Discharge Patient (As Directed); Ordered 10/13/24
Ordered By: Ramin Peñaloza
Discharge Date and Time
Discharge Date/Time: 10/13/24 15:13
Print Language: KOREAN

Documented by User: Junito Anderson MD 10/13/24 22:01
Discharge Summary
Discharge Data
Date of Admission: 10/11/24
Date of Discharge: 10/13/24
Discharge Plan
-
Patient Disposition: Home (Routine Discharge)
Discharge Diagnosis/Procedures: Acute Bronchitis-likely viral, Leukocytosis, URIEL on CKD, Hyperkalemia, DM 2, Valvular Heart Disease, Essential Hypertension, Hyperlipidemia, GERD, Hypothyroidism, Diabetic Neuropathy, Glaucoma
Condition: Good
Diet: Diabetic, Carb Controlled
Activity: No restrictions
Driving Restrictions: As prior to admission
Bathing Restrictions: None
Blood Work: BMP in 1 to 2 weeks
Referrals:
Ollie Oates MD [Family Provider] - in less than 1 week
Additional Discharge Medication Instructions: Take prednisone 20 mg 2 tablets by mouth for 5 days.
Continue to hold lisinopril tablet until follow-up with PCP to discuss restarting versus increasing amlodipine dose.
Prescription for walker to help with ambulation was provided upon discharge.
Can use [id number] cough suppressant for residual cough.
Prescriptions:
New
prednisone 20 mg tablet
40 mg PO DAILY Qty: 10 0RF
Rx Instructions:
Take prednisone 20 mg 2 tablets every day for 5 days.
Continued
levothyroxine 50 mcg Tablet
50 mcg PO DAILY
fexofenadine 180 mg Tablet
180 mg PO DAILY
lansoprazole 30 mg Capsule,Delayed Release(Dr/Ec)
30 mg PO DAILY
folic acid 1 mg Tablet
2 mg PO DAILY
coenzyme Q10 [CoQ-10] 100 mg Capsule
200 mg PO BID
latanoprost [Xalatan] 0.005 % drops
1 drp ophthalmic (eye) HS
carvedilol 6.25 mg tablet
6.25 mg PO BID
amlodipine 5 mg tablet
2.5 mg PO DAILY
glipizide 2.5 mg tablet extended release 24hr
2.5 mg PO BID
dorzolamide-timolol 22.3-6.8 mg/mL drops
1 drp ophthalmic (eye) BID
ergocalciferol (vitamin D2) [Vitamin D2] 1,250 mcg (50,000 unit) capsule
1,250 mcg PO WAITE
ezetimibe 10 mg tablet
10 mg PO DAILY
pregabalin 100 mg capsule
100 mg PO Q12H
Januvia 100 mg tablet
100 mg PO DAILY
pitavastatin calcium 4 mg tablet
4 mg PO DAILY
Held
lisinopril 20 mg Tablet
20 mg PO DAILY
Hold Instructions: Resume on 10/27/24. Continue to hold until see the PCP to discuss restarting versus increasing amlodipine dose.
Discharge Orders:
Discharge Patient (As Directed); Ordered 10/13/24
Ordered By: Ramin Peñaloza
Discharge Date and Time
Discharge Date/Time: 10/13/24 15:13
Print Language: KOREAN
[2024-10-13 14:44] VITALS: BP 183/89
--- NOTE | 2024-10-13 14:50 | PTCARENOTE ---
Patient for discharge today, BP 183/89. Dr groves and DR Peñaloza made aware. orders received for Norvasc 2.5mg to be given prior to discharge. patient aware of plan and in agreement. pateint aware to follow up with PCP about elevated BP and
medications.
[2024-10-13] MEDS: DUONEB INH (15:01)
== END 2024-10-13 15:13 | disposition home or self-care (01) | DRG 202 ==
LOC: 4 EAST ACU 22:54
PROVIDERS: Emergency Medicine; Physician Assistant Medical; ADMITTING PHYSICIAN Hospitalist; ATTENDING PHYSICIAN Family Medicine; EMERGENCY PHYSICIAN Emergency Medicine; FAMILY PHYSICIAN Family Medicine
DX: J20.9 Acute bronchitis, unspecified (principal); E87.20 Acidosis, unspecified; N17.9 Acute kidney failure, unspecified; Z11.52 Encounter for screening for COVID-19; N18.9 Chronic kidney disease, unspecified; I12.9 Hypertensive chronic kidney disease with stage 1 through stage 4 chronic kidney disease, or unspecified chronic kidney disease; E03.9 Hypothyroidism, unspecified; K21.9 Gastro-esophageal reflux disease without esophagitis; H40.9 Unspecified glaucoma; E87.5 Hyperkalemia; E11.40 Type 2 diabetes mellitus with diabetic neuropathy, unspecified; E78.00 Pure hypercholesterolemia, unspecified; E11.22 Type 2 diabetes mellitus with diabetic chronic kidney disease; E11.649 Type 2 diabetes mellitus with hypoglycemia without coma; I08.2 Rheumatic disorders of both aortic and tricuspid valves; Z79.899 Other long term (current) drug therapy
CPT/HCPCS: 70450; 71046; 76770; 80048; 80053; 82962; 83036; 83735; 84145; 85025; 85027; 87502; 87811; 92610; 94640; 96365; 96375; 97116; 97162; 97166; 97530; 99285

== ENCOUNTER → 2024-10-20 16:56 | Outpatient (REF) | payer MEDICARE, OTHER, SELFPAY | LOC: RAD 16:56 | PROVIDERS: ATTENDING PHYSICIAN Student in an Organized Health Care Education/Training Program; FAMILY PHYSICIAN Family Medicine | DX: S09.90XA Unspecified injury of head, initial encounter (principal) | CPT/HCPCS: 70450 ==

== ENCOUNTER 2024-10-25 10:02 | Inpatient (IN) | payer MEDICARE, BC, SELFPAY ==
[2024-10-23 15:12] VITALS: BP 143/71
[2024-10-23 15:47] LABS: % Basophils 0.2 % (0-2); % Eosinophils 1.5 % (0-6); % Immature Granulocytes 1.1 % (0-0.5); % Monocytes 7.7 % (1.7-9.3); % Neutrophils 63.5 % (42.2-75.2); Absolute Eosinophils 0.2 10^3/uL (0-0.7); Absolute Immature Granulocytes 0.1 10^3/uL (0-0.05); Absolute Lymphocytes 3.4 10^3/uL (1.2-3.4); Absolute Neutrophils 8.3 10^3/uL (1.4-6.5); Hematocrit 39.8 % (39.0-52.0); Hemoglobin 13.2 g/dL (13.0-18.0); Mean Corp Hgb Conc. 33.2 g/dL (33.0-37.0); Mean Corpuscular Hgb 29.2 pg (27.0-31.0); Mean Corpuscular Volume 88.1 fL (80.0-94.0); Mean Platelet Volume 10.6 fL (7.4-10.4); Nucleated Red Blood Cells % 0 % (-); Platelet Count 162 10^3/uL (130-400); Red Blood Cell Count 4.52 10^6/uL (4.70-6.10); White Blood Cell Count 13.1 10^3/uL (4.8-10.8)
[2024-10-23 16:02] LABS: ALT (SGPT) 43 U/L (0-50); AST (SGOT) 26 U/L (17-59); Albumin 4.1 g/dl (3.5-5.0); Alkaline Phosphatase 52 U/L (38-126); Blood Urea Nitrogen 23 mg/dl (9-20); Calcium 9.3 mg/dl (8.4-10.2); Carbon Dioxide 21 mmol/L (22-30); Chloride 102 mmol/L (98-107); Glucose 127 mg/dl (70-99); Potassium 4.7 mmol/L (3.5-5.1); Sodium 133 mmol/L (135-145); Total Bilirubin 0.8 mg/dl (0.2-1.3); Total Protein 6.8 g/dl (6.3-8.2); eGFR > 60.00
[2024-10-23 17:07] VITALS: BP 159/69
[2024-10-23 17:45] VITALS: BMI 25.7
[2024-10-23 18:45] LABS: COVID-19 Antigen Negative (Negative)
--- NOTE | 2024-10-23 19:10 | ED.GENMED ---
History of Present Illness
General
Chief Complaint: Weakness
Source: patient
Exam Limitations: none
Time Seen by Provider: 10/23/24 17:01
Nursing documentation reviewed up to this point in time: agreed with
History of Present Illness
History of Present Illness:
84-year-old male with history as documented, recent admission for bronchitis presents with continued weakness. Family is at bedside says that prior to recent admission for bronchitis he was ambulatory without assistance and lives independently with
his . Since returning home has had difficulty walking even with a walker and has had multiple falls. Most significant fall was a fall backwards onto concrete with head strike last week; he went to urgent care received karime and had an
outpatient CT head which was negative. No other serious injuries but given these increased frequency falls and difficulty ambulating to the point that he could not even get out of bed today his family brought him to the ER. He has had some mild
continued shortness of breath and cough but he says greatly improved. No other specific symptoms noted.
Past History
Past History
ED Past Medical History: GERD, HTN, Hypercholesterolemia and NIDDM
ED Past Surgical History: Appendectomy
Social History
Tobacco: Non-smoker
Alcohol: None
Drug: None
Personal:
Living: with family
Review of Systems
Review of Systems
All Other Systems: ROS reviewed and negative except as documented in HPI and ROS
Constitutional: Reports fatigue; Denies fever
Respiratory: Reports cough and trouble breathing
Cardiac: Denies chest pain
ABD/GI: Denies abdominal pain, nausea, vomiting or diarrhea
Neurological: Reports other (Weakness and falls/balance issues); Denies headache
Phy Exam
Physical Exam
Physical Exam:
General: Awake, alert, oriented x3; no acute distress
Head: Normocephalic, linear vertical laceration left occipital scalp with karime in place appears well-healing
Eyes: Conjunctiva normal, sclera anicteric
Throat: Airway intact, handling secretions
Neck: Trachea midline, no cervical spine tenderness
Back: No signs of trauma to the back or flank and no tenderness in the thoracic or lumbar spine
Lungs: Clear to auscultation bilaterally, no wheezing, rales, rhonchi; occasional cough
Heart: Regular rate and rhythm, no murmurs, gallops, or rubs; no chest wall/rib tenderness
Abd: Soft, non distended, nontender
Neuro: Cranial nerves grossly intact, speech fluid, no focal motor or sensory deficit
Extremities: Minor abrasion of the left knee and mild left hip contusion otherwise atraumatic, no edema in extremities, equal pulses in all extremities
Scores
Heart Failure Risk
Heart Failure Risk Score: Not Applicable
Heart Score for Chest Pain Patients
STEMI patient?: Not applicable
Withdrawal Assessment of Alcohol
Withdrawal Assessment Completed?: Not applicable
Course
Orders/Labs/Results
Orders:
Orders
10/23/24
Electrocardiogram (*1) Stat
Comment: DONE EMR
10/23/24 15:26
Complete Blood Count/With Diff Urgent
Comprehensive Metabolic Panel Urgent
10/23/24 17:07
CR Chest - 2 Views Urgent
Comment:
Reason For Exam: sob, weak
10/23/24 17:49
COVID-19 Antigen Urgent
Source: Nasal Swab
Influenza A+B Rapid Molecular Urgent
JESSICA Source: Nasal Swab
Specimen Description:
10/23/24 18:24
Case Management Consult ONCE
Case Management Consult: Alf Placement
10/23/24 18:25
Pt Eval And Treat Urgent
Activity Level: With Assistance
10/23/24 19:49
Admit/Transfer Patient As Directed
Co-Sign Provider:
Level of Care: Observation services
Assign to:: Telemetry
Physician / Group: Abram
Diagnosis: Ambulatory Dysfunction / Falls
Reason for Telemetry: Syncope
Date to Stop Telemetry: 10/25/24
Time to Stop Telemetry: 11:00
PRN Pain Medication Management As Directed
May give lesser potent ordered pain med per pt: Yes
preference::
Protocol:: Medication orders for pain may be administered in a
manner that supports deferring to patient preference
when the pt is:
- Requesting an ordered lesser potent pain medication.
Least to most potent pain medications are defined
as: acetaminophen < NSAID < tramadol < opioids
(morphine, oxycodone, hydromorphone).
- Requesting a lesser dose of the same medication IF
ORDERED.
- Requesting a less intrusive route of administration
if both routes are prescribed by the provider (PO <
IV).
10/23/24 19:51
Code Status As Directed
Resuscitation Status: Full Code
10/23/24 21:46
Acetaminophen [Tylenol] 650 mg PO Q4HPRN PRN
Albuterol Nebs [Ventolin Nebules] 2.5 mg INH R Q4HPRN PRN
Carvedilol [Coreg] 6.25 mg PO BID
Dextrose 50%-Water [Dextrose 50% Syringe] 12.5 grams IV [id number] PRN
Glucagon [GlucaGen] 1 mg IM PRN PRN
Ipratropium/Albuterol Sulfate [Duoneb] 3 ml INH R QID
10/23/24 21:46
Case Management Consult ONCE
Case Management Consult: Discharge Planning
TSH Reflex To Free T4 Routine
Activity As Directed
Activity Level: Ambulate
With Assistance
Bedside Glucose Monitoring As Directed
Frequency: AC&HS
Additional Instructions:: Change to q6h if pt on TPN, tube feeding or not eating
Bladder Scan As Directed
Follow Bladder Retention/Intermittent Cath Algorithm?: Yes
PRN if no void in __ hours: 6
Frequency: Per Retention Algorithm
If Bladder Scan Result >: 400
then:: Straight cath
EKG with chest pain [ECG as needed] As Directed
ECG as needed for:: Chest Pain
I/O [Intake/ Output] As Directed
Frequency: Per unit guidelines
Neurological Checks As Directed
Frequency: q4h
Orthostatic Vital Signs As Directed
Orthostatic VS Frequency: BID
Pneumatic Compression Sleeves As Directed
Type: Knee high
Straight Cath As Directed
Frequency: Per Retention Algorithm
Additional Instructions: straight cath as needed per acute urinary retention algorithm for 24 hrs
Additional Instructions: for bladder scan greater than 400 mL
Vital Signs As Directed
Frequency: Per unit guidelines
Weight As Directed
Frequency: Daily
Oxygen Therapy [O2 Therapy] [RESP] Routine
Titrate/Wean O2 to maintain O2 sat greater than (%): 94
Ot Eval And Treat Routine
PT Consult [Pt Eval And Treat] Routine
Activity Level: Ambulate
With Assistance
Speech Therapy Eval & Treat Routine
DX Deep Vein Thrombosis Video Routine
10/23/24 22:00
Latanoprost [Xalatan Ophthalmic Solution] See Dose Instructions RIGHT EYE HS
Timolol Maleate/Dorzolam HCl [Cosopt Eye Drops] See Dose Instructions RIGHT EYE BID
10/24/24 Breakfast
2000 calorie (17 carb) Diabetic
At Your Request: Limited Participation
Basic Metabolic Panel IN AM
Complete Blood Count/No Diff IN AM
MR Brain Without Contrast IN AM
Comment:
Reason For Exam: CVA / TIA
Recent pill cam endoscopy?: No
Levothyroxine [Synthroid] 50 mcg PO DAILY @ 0600
10/24/24 07:30
Insulin Aspart Corrective Low [Novolog Flexpen-Low Resistance] See Protocol SC AC
10/24/24 08:00
Atorvastatin [Lipitor] 20 mg PO DAILY
Ezetimibe [Zetia] 10 mg PO DAILY
FOLic ACID [Folvite] 2 mg PO DAILY
Lisinopril [Zestril] 20 mg PO DAILY
Pantoprazole [Protonix] 40 mg PO DAILY
10/25/24 11:00
DC Protocol for Telemetry ONCE
Abnormal Lab Results
10/23/24
15:26
WBC 13.1 H 10^3/uL
(4.8-10.8)
RBC 4.52 L 10^6/uL
(4.70-6.10)
RDW 15.0 H %
(11.5-14.5)
MPV 10.6 H fL
(7.4-10.4)
Abs Immat Gran (auto) 0.1 H 10^3/uL
(0-0.05)
Absolute Neuts (auto) 8.3 H 10^3/uL
(1.4-6.5)
Absolute Monos (auto) 1.0 H 10^3/uL
(0.1-0.6)
Immature Gran % 1.1 H %
(0-0.5)
Sodium 133 L mmol/L
(135-145)
Carbon Dioxide 21 L mmol/L
(22-30)
BUN 23 H mg/dl
(9-20)
Glucose 127 H mg/dl
(70-99)
10/23/24 15:26
10/23/24 15:26
Vital Signs
Initial and Last Documented VS:
Initial Vital Signs
Temp Pulse Resp BP Pulse Ox
36.7 C 71 16 143/71 98
10/23/24 15:12 10/23/24 15:12 10/23/24 15:12 10/23/24 15:12 10/23/24 15:12
Last Documented Vital Signs
Temp Pulse Resp BP Pulse Ox
36.5 C 61 18 111/93 98
10/23/24 22:00 10/23/24 22:20 10/23/24 22:00 10/23/24 22:20 10/23/24 22:00
MDM/Problems Addressed
Differential Diagnosis Includes:
Deconditioning, pneumonia, persistent bronchitis, anemia
MDM/Problems Addressed:
84-year-old male presents for evaluation of increased falls and generalized weakness after recent admission for bronchitis; he does have mild residual cough and shortness of breath but he says greatly improved. Vitals and exam as above.
Fortunately no serious traumatic injuries�most serious injury was a laceration to the scalp which was already repaired last week and he had an outpatient CT head which was negative for any acute pathology. We sent off labs which showed stable
leukocytosis in the setting of recent steroids. CMP no clinically significant abnormalities. COVID and flu negative. Chest x-ray shows no pneumonia. Suspect likely physical deconditioning. Consult to PT and case management. Case discussed with
hospitalist for admission.
*Radiology
Radiology exam reviewed: preliminary read by ED provider
*Pulse Oximetry
Patient hypoxic: no
*EKG
Interpreted by ED Provider?: Yes
Heart Rate: 74
Rate: normal
Rhythm: sinus
[place]: left axis deviation
Interval: first degree heart block
QRS Pattern: wide non-specific
Ischemia: non-specific ST changes
*Critical Care Note
Total Time (30-74mins, 75-104mins- exclusive of procedures): Not Applicable
Data Reviewed
Review of Other/Old Records Reveals: Labs, Records and Discharge Summary
Source: patient, records and family
Patient Management
Social determinants of health affecting care: Living situation (Lives independently in the community now having frequent falls and trouble getting around)
Discussion with other providers: Hospitalist (Discussed with hospitalist)
Escalation/DeEscalation of care consider admission/obs:
Admission indicated
ED Attending Note
-
Portions of this chart may have been created with voice recognition software.� Occasional wrong word or��sound alike� substitutions may have occurred due to the inherent limitations of voice recognition software.
Discharge Plan
Departure
Patient Disposition: Admit
Date of Disposition: 10/23/24
Time of Disposition: 19:09
Admit to doctor: Abram
Presentation/result/management discussed w/ accepting MD/DO: Hospitalist
Discharge Problem:
Physical deconditioning, Ambulatory dysfunction
Interventions
Interventions:
*Risk Screen - Suicide Last Done: 10/23/24 15:12
*General Assessment Last Done: 10/23/24 17:46
*Neglect/Abuse Screening Last Done: 10/23/24 15:12
ED- Fall Risk Assessment Last Done: 10/23/24 17:47
*ED COVID-19 Vaccine History Last Done: 10/23/24 17:47
*Nursing Disposition Last Done: 10/23/24 21:50
ED- Neurological Assessment Last Done: 10/23/24 18:19
Discharge Date and Time
Discharge Date/Time: 10/23/24 21:50
--- NOTE | 2024-10-23 19:58 | HPS.HSE ---
Family Physician
-
Family Physician: Ollie Oates
Chief Complaint
-
Weakness, Falls
History of Present Illness
Patient is an 84y M with PMH significant for HTN, DM-II and recent admission for viral bronchitis who presents to ED complaining of weakness and falls. History obtained from patient and his family at the bedside. Patient was recently admitted
here 10/11 - 10/13 for viral bronchitis. He was discharged to home with home PT and on 5 days of prednisone. Cough / wheezing are somewhat improved - but no fully resolved. Patient has also been progressively more weak since discharge and has had 3
separate falls since that time - most recently this AM. Two of the falls were unwitnessed - including fall on 10/18 which resulted in L posterior scalp laceration. Patient had CT done on 10/20 which showed no intracranial bleed / abnormality.
Patient states that his legs feel weak. He denies any lightheadedness / dizziness, chest pain, dyspnea or other significant prodrome.
Prior to his viral illness, patient was ambulating normally / walking up and down stairs and generally functioning without any issues.
Family also appreciates some thickened / slurred speech - which they state has been going on now for a few months.
Medical History
Past Medical History
Past Medical History: Reports Other
Additional Past Medical History:
Valvular Heart Disease: Mild/Moderate Aortic Stenosis, Mild/Moderate Tricuspid Regurgitation
Essential Hypertension
Hyperlipidemia
Diabetes Mellitus, Type II
Diabetic Neuropathy
Hypothyroidism
GERD
Glaucoma
Past Surgical History: Reports Other
Additional Past Surgical History:
Appendectomy
Social History
Tobacco: Non-smoker
Alcohol: Occasional
Family History
Family History: Not pertinent
Allergies / Home Medications
Allergies reflects when Allergies were last updated in [facility].
Home Medications with original date entered in [facility]
Allergy/Medication List:
Allergies
Allergy/AdvReac Type Severity Reaction Status Date / Time
No Known Allergies Allergy Verified 10/23/24 15:14
Home Medications
amlodipine 5 mg tablet 1.25 mg PO DAILY Blood Pressure 10/11/24
carvedilol 6.25 mg tablet 6.25 mg PO BID Blood Pressure 10/11/24
coenzyme Q10 100 mg capsule (CoQ-10) 200 mg PO BID Supplement 10/11/24
dorzolamide 22.3 mg-timolol 6.8 mg/mL eye drops 1 drp RIGHT EYE BID Eye Condition 10/11/24
ergocalciferol (vitamin D2) 1,250 mcg (50,000 unit) capsule (Vitamin D2) 1,250 mcg PO WAITE Supplement 10/11/24
ezetimibe 10 mg tablet 10 mg PO DAILY High Cholesterol 10/11/24
fexofenadine 180 mg tablet 180 mg PO DAILY Allergies 10/11/24
folic acid 1 mg tablet 2 mg PO DAILY Supplement 10/11/24
lansoprazole 30 mg capsule,delayed release 30 mg PO DAILY Gastrointestinal Issue 10/11/24
latanoprost 0.005 % eye drops (Xalatan) 1 drp RIGHT EYE HS Eye Condition 10/11/24
levothyroxine 50 mcg tablet 50 mcg PO DAILY Thyroid 10/11/24
lisinopril 20 mg tablet 20 mg PO DAILY Blood Pressure 10/11/24
pitavastatin calcium 4 mg tablet 4 mg PO DAILY High Cholesterol 10/11/24
sitagliptin phosphate 100 mg tablet (Januvia) 100 mg PO DAILY Diabetes 10/11/24
ascorbic acid (vitamin C) 500 mg tablet (Vitamin C) 500 mg PO DAILY 10/23/24
cephalexin 500 mg capsule 500 mg PO BID 10/23/24
magnesium oxide 500 mg PO DAILY 10/23/24
mupirocin 2 % topical ointment 1 applic topical BID wound 10/23/24
therapeutic multivitamin 1 tab PO DAILY 10/23/24
Review of Systems
-
History Source: Patient
A 12 point ROS was completed and negative except as noted: Yes
Constitutional: Reports Fatigue; Denies Fever or Chills
EENT: Denies Sore Throat
Respiratory: Reports Cough; Denies Trouble Breathing
Cardiac: Denies Chest Pain or Palpitations
Abdomen/GI: Denies Abdominal Pain, Nausea, Vomiting or Diarrhea
: Denies Dysuria or Frequency
Musculoskeletal: Reports Edema; Denies Joint Pain
Neurological: Reports Weakness; Denies Dizzy or Headache
Psych: Denies Depression or Anxiety
Physical Exam
Vital Signs
Vital Signs
Temp Pulse Resp BP Pulse Ox
98.1 F 59 18 159/69 100
10/23/24 15:12 10/23/24 18:00 10/23/24 18:00 10/23/24 17:07 10/23/24 18:00
Physical Exam
General: Other (84y M in no acute distress.)
HEENT: Other (L prosthetic orb. L posterior scalp laceration in vertical orientation. Multiple karime in place. Minimal bleeding / discharge on pillow.)
Respiratory: Other (Scattered inspiratory and expiratory wheezes throughout. No focal rales / rhonchi.)
Cardiac: S1/S2 and Regular Rhythm; No Murmur
GI: Soft, Non Tender, Non Distended and Normal Bowel Sounds
Musculoskeletal: No Clubbing, No Cyanosis and Other (2+ pitting edema to the knees bilaterally.)
Neuro: AO x 3 and Nonfocal/grossly intact
Laboratory Results
-
10/23/24 15:26
10/23/24 15:26
Laboratory Results
Total Bilirubin 0.8 mg/dl (0.2-1.3) 10/23/24 15:26
AST 26 U/L (17-59) 10/23/24 15:26
ALT 43 U/L (0-50) 10/23/24 15:26
Alkaline Phosphatase 52 U/L (38-126) 10/23/24 15:26
Impression/Plan
-
A/P: Patient is an 84y M with PMH significant for hypertension, DM-II and recent hospitalization for viral bronchitis who presents to ED complaining of worsening weakness / recurrent falls.
Ambulatory Dysfunction
Generalized Weakness
Fall at Home
- Observe overnight for further evaluation and treatment.
- Suspect deconditioning s/p recent acute illness.
- Likely contribution of DM neuropathy to gait issues as well.
- PT / OT evaluations.
- CM eval as patient would likely benefit from SNF stay prior to return home.
- Do not see any focal issues / findings on exam today, but will check MR brain given slurred speech, recent head injury, etc.
Scalp Laceration
- s/p recent fall. CT 10/11 was unremarkable for intracranial abnormality.
- Check [place] in follow-up as noted above.
- Local care. [place] for removal 7-14 days (10/25 at the earliest).
Viral Bronchitis
- Persistent wheezing and cough from last admission.
- Patient would like to avoid systemic steroids given issues with advanced glaucoma.
- Will use nebs ATC and PRN and follow for clinical improvement.
DM-II with Peripheral Neuropathy
- Stable. Recent A1C was 6.6%. Had hypoglycemia on admission last stay (49).
- Hold PO medications.
- Follow glucose and cover with SSI if needed.
Benign Hypertension
- Stable. Resume lisinopril - prior URIEL has fully recovered with no evidence of baseline CKD.
- Monitor for BP control and adjust regimen as needed.
Valvular Heart Disease
- Stable. Echo done 06/2024 with normal LVEF and stable valvular disease.
Hypothyroidism
- Check TFTs and adjust T4 replacement if needed.
Glaucoma
- Continue usual home drops.
- Avoiding systemic steroids as noted above.
DVT Prophylaxis: SCDs
[2024-10-23 22:00] VITALS: BP 111/93; BMI 25.1
[2024-10-23 22:11] LABS: Glucose - Point of Care 136 mg/dl (70-99)
[2024-10-23] MEDS: COSOPT EYE DROPS RIGHT EYE (22:19)
[2024-10-23] MEDS: XALATAN OPHTHALMIC SOLUTION RIGHT EYE (22:20)
[2024-10-23] MEDS: COREG 6.25 MG PO (22:20)
[2024-10-23] MEDS: DUONEB INH (23:47)
[2024-10-24] VITALS (8 sets, daily range): BP systolic 118–175; BP diastolic 54–82; PULSE 62–72; O2SAT 99–100; BMI 24.8
--- NOTE | 2024-10-24 00:38 | PTCARENOTE ---
Patient arrived to unit from ED via stretcher. Patient pulled over from stretcher to bed in 317-1 on . Patient AAOx3, [place], able to make needs known. Laceration with karime noted to posterior scalp. Scant serosanguineous drainage noted on
pillow upon arrival from ED. Non-adhesive dressing applied. Oriented to unit. Bed alarm intact. Call adams within reach. Urinal at bedside. Plan of care ongoing.
[2024-10-24] MEDS: SYNTHROID 50 MCG PO (06:01)
[2024-10-24] MEDS: DUONEB 3 ML INH ×3 (07:10→15:32)
--- NOTE | 2024-10-24 07:29 | W.PN.HOSP.TC ---
Today's Communication/Plan
-
Neurology consult
Brain MRI pending, most likely tomorrow after staple removal
Updated and daughter at bedside
Assessment / Plan
Assessment / Plan
Patient is an 84 year old man recent discharged on 10/13 on 5-day steroids for viral bronchitis. He presents to ED with weakness and 3 episodes of fall since discharge. Denies any lightheadedness. Mentions he was not using walker that was
prescribed during last admission. Cough / wheezing are somewhat improved - but no fully resolved. He has had 3 falls.
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
HTN, DMII on ia, pulmonary valve stenosis, hypothyroidism, hyperlipidemia, glaucoma, GERD
# Ambulatory dysfunction
Admitted in observation
Appreciate neurology-GBS unlikely, most likely postviral infection deconditioning causing weakness
TSH checked-normal
B12 levels checked-normal
Orthostatic vital signs-normal
Scalp karime placed on 10/18-need to be removed tomorrow prior to brain MRI
Head CT (10/20): Did not show any signs of acute pathology
Case management consulted and actively involved
PT OT
# Viral bronchitis
Status post 5 days of prednisone 40
Currently saturating well on room air
No cough or shortness of breath
Wheezes heard on auscultation-continue nebs and mucolytics
Encourage incentive spirometer
# DMII with peripheral neuropathy
Recent Hemoglobin A1c= 6.6
Accu-Cheks
Low-dose SSI
Carb controlled diet
Will hold oral meds for now
# Essential hypertension
Continue lisinopril and Coreg
Amlodipine held for now
# GERD
continue Protonix 40 daily
# Hypothyroidism
continue home levothyroxine
# Hyperlipidemia
continue home regimen with pitavastatin and Zetia
# Glaucoma
Continue Xalatan
Continue dorzolamide-timolol drops
# Pulmonary valve stenosis
Does not need any intervention at this time
DVT Prophylaxis
SCD
Holding off anticoagulants until brain MRI done
Updated and daughter at bedside
Anticipated Discharge: Within 24 hours
Subjective/Interval History
-
Date of Service: October 24, 2024
Objective Data
-
Labs:
Laboratory Results
10/24/24
06:59
WBC Pending
Hgb Pending
Hct Pending
Plt Count Pending
Sodium Pending
Potassium Pending
Chloride Pending
Carbon Dioxide Pending
BUN Pending
Creatinine Pending
Glucose Pending
Calcium Pending
Vital Signs:
Vital Signs
Temp Pulse Resp BP Pulse Ox
98.1 F 52 15 120/66 99
10/24/24 03:00 10/24/24 07:11 10/24/24 07:11 10/24/24 03:00 10/24/24 03:00
I&O
10/23/24 10/24/24 10/25/24
06:59 06:59 06:59
Output Total 675 / 675
Balance -675 / -675
Review of Systems
-
History Source: Patient
Constitutional: Reports Weakness
Genitourinary: Denies Incontinence
Physical Exam
-
General: Well Developed, No Apparent Distress and Comfortable
HEENT: Normocephalic, Atraumatic and Moist Mucous Membranes
Respiratory: Wheezes and Non Labored Respirations; Negative Crackles
Cardiac: Regular Rhythm and S1/S2
GI: Soft, Nontender, Nondistended and Normal Bowel Sounds
Skin: Warm, Dry and Rash
Neuro: Awake, Alert, Oriented, AO x 3, Tremors (Mild resting tremor), Slurred Speech (Speech is slow but not slurred) and Other (Shuffling gait); Negative Facial Droop
[2024-10-24 07:46] LABS: Hematocrit 38.2 % (39.0-52.0); Mean Corpuscular Hgb 29.4 pg (27.0-31.0); Mean Corpuscular Volume 86.4 fL (80.0-94.0); Mean Platelet Volume 11.1 fL (7.4-10.4); Platelet Count 156 10^3/uL (130-400); Red Blood Cell Count 4.42 10^6/uL (4.70-6.10); White Blood Cell Count 8.9 10^3/uL (4.8-10.8)
[2024-10-24 07:52] LABS: Glucose - Point of Care 139 mg/dl (70-99)
[2024-10-24] MEDS: COREG 6.25 MG PO ×2 (08:13→20:16)
[2024-10-24] MEDS: FOLVITE 2 MG PO (08:13)
[2024-10-24] MEDS: PROTONIX 40 MG PO (08:13)
[2024-10-24] MEDS: ZESTRIL 20 MG PO (08:13)
[2024-10-24] MEDS: LIPITOR 20 MG PO (08:13)
[2024-10-24] MEDS: ZETIA 10 MG PO (08:13)
[2024-10-24] MEDS: MUCINEX 600 MG PO ×2 (08:18→20:16)
[2024-10-24 08:23] LABS: Blood Urea Nitrogen 18 mg/dl (9-20); Calcium 8.8 mg/dl (8.4-10.2); Carbon Dioxide 22 mmol/L (22-30); Chloride 103 mmol/L (98-107); Estimated Creatinine Clearance 52 ml/min; Glucose 126 mg/dl (70-99); Potassium 4.5 mmol/L (3.5-5.1); Sodium 135 mmol/L (135-145); eGFR > 60.00
[2024-10-24 08:42] LABS: TSH Reflex To Free T4 1.53 uIU/ml (0.47-4.68)
[2024-10-24 09:20] LABS: Vitamin B12 944 pg/ml (239-931)
[2024-10-24] MEDS: NOVOLOG FLEXPEN-LOW RESISTANCE SC ×3 (09:20→16:33)
--- NOTE | 2024-10-24 09:55 | PTOTSP ---
Dysphagia Evaluation
Patient with functional oral stage, signs/reports of unspecified pharyngeal dysphagia (i.e., occasional coughing with rapid ingestion of thin liquids), and known esophageal dx (GERD).
Recommend:
1. Regular, Thin Liquids
2. Medications as best tolerated
3. Strategies: upright to 90 degrees, small single sips/bites, reflux precautions
4. Will f/u after MRI of Brain to determine if further speech/language/cognitive evaluation warranted
5. Brief dysphagia f/u for carry over of compensations and to determine if video swallow study warranted
[2024-10-24] MEDS: COSOPT EYE DROPS 1 DROP RIGHT EYE ×2 (10:32→20:16)
[2024-10-24 11:51] LABS: Glucose - Point of Care 154 mg/dl (70-99)
--- NOTE | 2024-10-24 12:01 | CM ---
Addendum entered by KATHERIN Soto 10/24/24 15:23:
Spoke with patient's daughter who stated that family just wants SNF not LTC. Explanation provided that patient is as of now observation and therefore will not get a 3 night qualifying stay unless he becomes inpatient.
Received return call from Deepti from [facility] who stated that patient is not one of their patients and therefore does not qualify for the waiver program.
Will await determination regarding patient status and explain option to family if patient stays obs.
Original Note:
Met with patient to obtain information for assessment. Patient stated that he lives with his in a one story home with two steps to enter. Patient's assists with all of patient's ADLs and personal care as well as dressing and bathing. He
uses a walker. She does all of the stamp pad maker, cooking, cleaning and laundry. Patient stated that they have a supportive daughter who is an Oncologist. He also has supportive neighbors and friends.
Patient has not had VN services.
He has not been to a SNF.
Patient has a prescription plan and he uses [facility] for most of his medications.
Patient's PCP is, Ollie Oates.
Patient was provided with OBS letter. It was reviewed and is on chart, signed. He asked that CM defer to his daughter for discharge planning. Placed a call to patient's daughter however phone was busy. Placed a call to patient's and she stated
that patient's daughter will be in to see patient later today and is not often available by phone. She confirmed number on chart is correct.
Placed a call to Deepti at [facility] to determine if patient may qualify for the Medicare Waiver as right now he is obs.
Plan: Case management will continue to follow and assist with discharge planning. Patient needs LTC as his is unable to care for him after multiple falls recently.
--- NOTE | 2024-10-24 12:57 | CON.NEURO ---
Neuro Assessment/Plan
Assessment
84 Year old man with bilateral lower extremity weakness x10 days since recent illness. Suspect deconditioning
No suspicion for GBS as he denies getting worse from one day to the next, denies that the weakness is ascending, denies numbness, has 1+ reflexes x4 limbs age appropriate, and age appropriate vibration sense.
exam with some parkinsonism, and he does admit to shuffling gait with the recent illness, but denies shuffling prior to this; could be the beginnings of symptomatic Parkinson's disease, or may improve as he continues to recover from this viral
bronchitis. no rx for now
Plan
Agree Brain MRI
PT/OT
Consultation
Order
Date of Consultation: 10/24/24
Requesting Provider: Genoveva Choudhary
Reason for Consult: multiple falls, leg weakness
Subjective/Objective
Subjective Data
Date of Service: October 24, 2024
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 Patient was recently admitted here 10/11 - 10/13 for viral
bronchitis. He was discharged to home with home PT and on 5 days of prednisone. Cough / wheezing are somewhat improved - but no fully resolved. He has had 3 falls. Per H&P, progressively more weak since discharge, though to me, he reports the
weakness has been pretty constant, and certainly not worsening each day, and not ascending. no numbness or tingling. Admits to shuffling gait since the illness but not before it.
Objective Data
Vital Signs
Temp Pulse Resp BP Pulse Ox
36.5 C 64 16 124/62 98
10/24/24 11:27 10/24/24 11:27 10/24/24 11:27 10/24/24 11:27 10/24/24 11:27
Lab Results
10/24/24 06:59
10/24/24 06:59
Sodium 135 mmol/L (135-145) 10/24/24 06:59
Potassium 4.5 mmol/L (3.5-5.1) 10/24/24 06:59
BUN 18 mg/dl (9-20) 10/24/24 06:59
Glucose 126 mg/dl (70-99) H 10/24/24 06:59
Calcium 8.8 mg/dl (8.4-10.2) 10/24/24 06:59
Vitamin B12 944 pg/ml (239-931) H 10/24/24 06:59
Patient Allergies
No Known Allergies Allergy (Verified 10/23/24 15:14)
Physical Exam
-
AAOx3, speech clear, language intact
VFF, EOMI, face symmetric
full strength on manual muscle testing, mild cogwheeling with contralateral activation
sensation intact to temp and age appropriate intact to vibration
DTR 1+ biceps, brachioradialis, knees
+bradykinesia
Medications
-
Active Medications
Generic Name Dose Route Start Last Admin
Trade Name Freq PRN Reason Stop Dose Admin
Acetaminophen 650 mg 10/23/24 21:46
Acetaminophen 325 Mg Tablet PO 11/20/24 21:45
Q4HPRN PRN
Mild Pain / Temp > 101
Albuterol Sulfate 2.5 mg 10/23/24 21:46
Albuterol Nebs 2.5 Mg/3 Ml Ampul INH
R Q4HPRN PRN
SOB
Protocol
Albuterol/Ipratropium 3 ml 10/23/24 21:46 10/24/24 11:08
Ipratropium 0.5/Albuterol 3 Mg (3 Ml Ampul) INH 3 ml
R QID TRISHA Administration
Protocol
Atorvastatin Calcium 20 mg 10/24/24 08:00 10/24/24 08:13
Atorvastatin (Lipitor) 20 Mg Tablet PO 11/21/24 07:59 20 mg
DAILY TRISHA Administration
Carvedilol 6.25 mg 10/23/24 21:46 10/24/24 08:13
Carvedilol 6.25 Mg Tablet PO 11/20/24 21:45 6.25 mg
BID TRISHA Administration
Dextrose 12.5 grams 10/23/24 21:46
Dextrose 50% (0.5 Grams/Ml) 50 Ml Syringe IV 11/20/24 21:45
[id number] PRN
hypoglycemia
Protocol
Dorzolamide/Timolol 0 drop 10/23/24 22:00 10/24/24 10:32
Dorzolamide/Timolol (Ophth Soln.) 10 Ml Bottle RIGHT EYE 11/20/24 21:59 1 drop
BID TRISHA Administration
Ezetimibe 10 mg 10/24/24 08:00 10/24/24 08:13
Ezetimibe (Zetia) 10 Mg Tablet PO 11/21/24 07:59 10 mg
DAILY TRISHA Administration
Folic Acid 2 mg 10/24/24 08:00 10/24/24 08:13
Folic Acid 1 Mg Tablet PO 11/21/24 07:59 2 mg
DAILY TRISHA Administration
Glucagon 1 mg 10/23/24 21:46
Glucagon 1 Mg Vial IM 11/20/24 21:45
PRN PRN
hypoglycemia
Protocol
Guaifenesin 600 mg 10/24/24 09:00 10/24/24 08:18
Guaifenesin 600 Mg Extended Release Tablet PO 11/21/24 08:59 600 mg
Q12 TRISHA Administration
Insulin Aspart 0 units 10/24/24 07:30 10/24/24 12:50
Insulin Aspart Low Resistance 300 Units/3 Ml Pen.Injctr SC 11/21/24 07:29 Not Given
AC TRISHA
Protocol
Latanoprost 0 drop 10/23/24 22:00 10/23/24 22:20
Latanoprost 0.005% (Ophthalmic Solution) 2.5 Ml Bottle RIGHT EYE 11/20/24 21:59 Not Given
HS TRISHA
Levothyroxine Sodium 50 mcg 10/24/24 06:00 10/24/24 06:01
Levothyroxine 50 Mcg Tablet PO 11/21/24 05:59 50 mcg
DAILY @ 0600 TRISHA Administration
Lisinopril 20 mg 10/24/24 08:00 10/24/24 08:13
Lisinopril 20 Mg Tablet PO 11/21/24 07:59 20 mg
DAILY TRISHA Administration
Pantoprazole Sodium 40 mg 10/24/24 08:00 10/24/24 08:13
Pantoprazole 40 Mg Delayed Release Tablet PO 11/21/24 07:59 40 mg
DAILY TRISHA Administration
Sodium Chloride 0 flush 10/23/24 22:00
Sodium Chloride 0.9% (Flush) Syringe IV 11/20/24 21:59
PER PROTOCOL TRISHA
Home Medications
�Medication �Instructions �Recorded
amlodipine 5 mg tablet 1.25 mg PO DAILY Blood Pressure 10/11/24
carvedilol 6.25 mg tablet 6.25 mg PO BID Blood Pressure 10/11/24
coenzyme Q10 100 mg capsule 200 mg PO BID Supplement 10/11/24
(CoQ-10)
dorzolamide 22.3 mg-timolol 6.8 1 drp RIGHT EYE BID Eye Condition 10/11/24
mg/mL eye drops
ergocalciferol (vitamin D2) 1,250 1,250 mcg PO WAITE Supplement 10/11/24
mcg (50,000 unit) capsule (Vitamin
D2)
ezetimibe 10 mg tablet 10 mg PO DAILY High Cholesterol 10/11/24
fexofenadine 180 mg tablet 180 mg PO DAILY Allergies 10/11/24
folic acid 1 mg tablet 2 mg PO DAILY Supplement 10/11/24
lansoprazole 30 mg capsule,delayed 30 mg PO DAILY Gastrointestinal 10/11/24
release Issue
latanoprost 0.005 % eye drops 1 drp RIGHT EYE HS Eye Condition 10/11/24
(Xalatan)
levothyroxine 50 mcg tablet 50 mcg PO DAILY Thyroid 10/11/24
lisinopril 20 mg tablet 20 mg PO DAILY Blood Pressure 10/11/24
pitavastatin calcium 4 mg tablet 4 mg PO DAILY High Cholesterol 10/11/24
sitagliptin phosphate 100 mg 100 mg PO DAILY Diabetes 10/11/24
tablet (Januvia)
albuterol sulfate 90 mcg/actuation 2 puff inhalation R Q4HPRN PRN sob 10/23/24
aerosol inhaler
ascorbic acid (vitamin C) 500 mg 500 mg PO DAILY Supplement 10/23/24
tablet (Vitamin C)
cephalexin 500 mg capsule 500 mg PO BID infection 10/23/24
magnesium oxide 500 mg PO DAILY Supplement 10/23/24
mupirocin 2 % topical ointment 1 applic topical BID wound 10/23/24
therapeutic multivitamin 1 tab PO DAILY Supplement 10/23/24
--- NOTE | 2024-10-24 15:29 | W.PN.UPDATE ---
Update Note
Progress Note Update
84 y/o man with gen weakness and falls. Patient was recently admitted here with bronchitis and was discharged. He also had acute kidney injury at that time. says he had falls at home . was seen in urgent care on the nth and had karime placed
in the scalp post for lac.
I saw and evaluated the patient. I reviewed the resident�s note and agree with findings and plan as documented in the resident�s note except for changes in my documentation
Patient was seen earlier today. Late documentation
He was seated in the chair denied any pain
Cardiovascular system S1-S2 appreciated systolic murmur at aortic area
Chest clear to auscultation
Abdomen soft and nontender
[employer]-no facial droop, speech is low tone but not garbled
No facial droop
Normal motor exam bilaterally
Reflexes decreased lower extremities
Plantars downgoing
Made patient ambulate he was able to ambulate with contact-guard
# Ambulatory dysfunction/generalized weakness/falls.
Etiology unclear possible deconditioning
Discussed with neurology-feels that this is deconditioning, no evidence of GBS.
MRI ordered -[place] have to come out prior to getting MRI
Normal TSH and B12 levels
Orthostatic vital signs
# Scalp laceration
Continue local care and staple remover on 10/25/2024
# Recent acute bronchitis
Not hypoxic
Continue nebulizer treatments, mucolytics, Acapella
# Diabetes with peripheral neuropathy-hemoglobin A1c 6.6
Patient is on Januvia 100 mg as outpatient
Accu-Cheks and sliding scale coverage
# Hypertension
Patient is on Coreg 6.25 p.o. twice daily, amlodipine 1.25 mg p.o. daily, lisinopril 20 mg daily as outpatient.
Lisinopril and Coreg to be continued
# Valvular heart disease
Echo 07/07/2024-EF 60 to 65%, normal regional wall motion abnormality, normal RV size and function, mild to moderate , mild to moderate TR, PA pressure 30 to 35 mmHg
# Hyperlipidemia-continue Statin, Zetia
# Hypothyroidism-continue Synthroid
# Glaucoma-continue Xalatan, dorzolamide-timolol drops.
# GERD-continue PPI
# DVT Prophylaxis- Add Lovenox after MRI
# Full CODE
D/W RN
D/W Neurology
D/W daughter Darling Roldan [phone]
D/W case management
TIme spent over 50 min
--- NOTE | 2024-10-24 15:40 | WOUNDNOTE ---
WON RN note: Patient admitted with physical deconditioning and ambulatory dysfunction.
See H&P for complete history. Lives with at home.
PMH: NIDDM,Viral Bronchitis, HTN, recent falls and L eye prosthesis.
Wound Location and type/assessment: Patient admitted with: Laceration to occipital scalp, karime intact, scant serosanguineous drainage. Does not appear to be infected. A week ago patient fell and hit his head on concrete, urgent center put in
karime and outpatient CT scan was negative. For MRI of brain today but delayed due to karime. Nurse Renee reports that karime to be removed tomorrow before having MRI. R hip bruise and lower back abrasion with steri strip also from fall. Daughter
at bedside reports her Dad was using an antibiotic ointment along incision but she nor her dad remembered the name. Nurse Renee confirmed sacrum intact, patient sitting in chair currently.
Appetite: Good.
Pressure redistribution devices in place: Accumax, can turn easily. Pillow under calves when in bed.
Plan: Xeroform, 2x2 gauze and silicone tape applied after cleaning with saline. Daughter and patient updated on care.
Will confirm orders with hospitalist and updated nurse Duran. Updated care plan and will follow as needed.
Note to case management of equipment requested for discharge: TBD
Recommend follow up at wound care center if not healing, upon discharge.
[2024-10-24 16:31] LABS: Glucose - Point of Care 148 mg/dl (70-99)
[2024-10-24 17:44] LABS: Troponin I < 0.012 ng/ml
[2024-10-24] MEDS: DUONEB INH (19:14)
[2024-10-24] MEDS: XALATAN OPHTHALMIC SOLUTION 1 DROP RIGHT EYE (21:13)
[2024-10-24 21:21] LABS: Glucose - Point of Care 212 mg/dl (70-99)
[2024-10-25 03:00] VITALS: BP 133/70
[2024-10-25 06:00] VITALS: BMI 24.6
[2024-10-25] MEDS: SYNTHROID 50 MCG PO (06:39)
[2024-10-25 07:10] LABS: Hematocrit 38.2 % (39.0-52.0); Hemoglobin 13.5 g/dL (13.0-18.0); Mean Corp Hgb Conc. 35.3 g/dL (33.0-37.0); Mean Corpuscular Hgb 29.9 pg (27.0-31.0); Mean Corpuscular Volume 84.5 fL (80.0-94.0); Platelet Count 155 10^3/uL (130-400); Red Blood Cell Count 4.52 10^6/uL (4.70-6.10); Red Cell Dist. Width 14.6 % (11.5-14.5); White Blood Cell Count 10.2 10^3/uL (4.8-10.8)
[2024-10-25 07:11] LABS: Glucose - Point of Care 152 mg/dl (70-99)
[2024-10-25] MEDS: DUONEB 3 ML INH ×2 (07:14→15:37)
--- NOTE | 2024-10-25 07:20 | PTCARENOTE ---
Addendum entered by Renee Helton RN 10/25/24 10:24:
Karime removed by . Pt. has no complaints of pain at this time, dressing CDI.
Original Note:
Pt. unable to get brain MRI until karime are removed from his scalp laceration.
[2024-10-25 07:45] LABS: Blood Urea Nitrogen 15 mg/dl (9-20); Calcium 9.4 mg/dl (8.4-10.2); Carbon Dioxide 21 mmol/L (22-30); Chloride 104 mmol/L (98-107); Estimated Creatinine Clearance 59 ml/min; Glucose 163 mg/dl (70-99); Potassium 4.3 mmol/L (3.5-5.1); Sodium 134 mmol/L (135-145); eGFR > 60.00
[2024-10-25] MEDS: PROTONIX 40 MG PO (07:57)
[2024-10-25] MEDS: MUCINEX 600 MG PO ×2 (07:57→20:27)
[2024-10-25] MEDS: LIPITOR 20 MG PO (07:57)
[2024-10-25] MEDS: FOLVITE 2 MG PO (07:57)
[2024-10-25] MEDS: COSOPT EYE DROPS 1 DROP RIGHT EYE ×2 (07:57→20:27)
[2024-10-25] MEDS: ZETIA 10 MG PO (07:57)
[2024-10-25] MEDS: COREG 6.25 MG PO ×2 (07:58→20:27)
[2024-10-25] MEDS: ZESTRIL 20 MG PO (07:58)
[2024-10-25 08:00] VITALS: BP 140/79
--- NOTE | 2024-10-25 08:22 | W.PN.HOSP.TC ---
Addendum entered and electronically signed by Genoveva Choudhary MD 10/25/24 14:42:
I saw and evaluated the patient. I reviewed the resident�s note and agree with findings and plan as documented in the resident�s note .
Seen earlier today. Late documentation
On examination patient was Much brighter and able to communicate
Gait had improved since yesterday, patient still has some wide-based gait unsteady walking
Motor exam normal
Karime were removed from the scalp so patient can have MRI done
Wound dressed with plain gauze and tape
MRI shows subdural hematoma
Per discussion patient's daughter his gait went really abnormal after the fall on the
He was slightly weak after discharge from his URI admission on October 13.
First fall was on October 14 but his major fall was on October 18. He has also fallen on October 20 and which brought him into the hospital.
He is not on any antiplatelets or anticoagulants
Blood pressure stable
Neurosurgery consulted
Reviewed with daughter in detail
Original Note:
Today's Communication/Plan
-
Admitted to inpatient (previously observation)
Remove karime
Brain MRI after karime are removed
Assessment / Plan
Assessment / Plan
Patient is an 84 year old man recent discharged on 10/13 on 5-day steroids for viral bronchitis. He presents to ED with weakness and 3 episodes of fall since discharge. Denies any lightheadedness. Mentions he was not using walker that was
prescribed during last admission. Cough / wheezing are somewhat improved - but no fully resolved. He has had 3 falls.
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
HTN, DMII on , pulmonary valve stenosis, hypothyroidism, hyperlipidemia, glaucoma, GERD
# Ambulatory dysfunction
Initially observation, now admitted to inpatient
Appreciate neurology-GBS unlikely, most likely postviral infection deconditioning causing weakness
TSH checked-normal
B12 levels checked-normal
Orthostatic vital signs-normal
Scalp karime (x20) placed on 2/19-removed today prior to brain MRI
Head CT (10/20): Did not show any signs of acute pathology
Case management consulted and actively involved
PT OT: Recommend SNF
ST: Recommend regular diet,Thin Liquids
Brain MRI
# Viral bronchitis
S/p completed 5 day course of prednisone 40
Currently saturating well on room air
No cough or shortness of breath
Wheezes heard on auscultation-continue nebs and mucolytics
Encourage incentive spirometer
# DMII with peripheral neuropathy
Recent Hemoglobin A1c= 6.6
Accu-Cheks
Low-dose SSI
Carb controlled diet
Will hold oral meds for now
# Essential hypertension
Continue lisinopril and Coreg
Amlodipine held for now
# GERD
continue Protonix 40 daily
# Hypothyroidism
continue home levothyroxine
# Hyperlipidemia
continue home regimen with pitavastatin and Zetia
# Glaucoma
Continue Xalatan
Continue dorzolamide-timolol drops
# Pulmonary valve stenosis
Does not need any intervention at this time
DVT Prophylaxis
SCD
Holding off anticoagulants until brain MRI done
Anticipated Discharge: 24 - 48 hours
Subjective/Interval History
-
Date of Service: October 25, 2024
States he is feeling fine. No shortness of breath or chest pain. No lightheadedness, dizziness, headache. Was able to walk around during the past day
Objective Data
-
Labs:
Laboratory Results
10/25/24
06:49
WBC 10.2
Hgb 13.5
Hct 38.2 L
Plt Count 155
Sodium 134 L
Potassium 4.3
Chloride 104
Carbon Dioxide 21 L
BUN 15
Creatinine 0.8
Glucose 163 H
Calcium 9.4
Vital Signs:
Vital Signs
Temp Pulse Resp BP Pulse Ox
98.0 F 62 16 133/70 97
10/25/24 03:00 10/25/24 07:15 10/25/24 07:15 10/25/24 03:00 10/25/24 07:15
I&O
10/24/24 10/25/24 10/26/24
06:59 06:59 06:59
Intake Total 1580 / 1580
Output Total 675 / 675 1225 / 1225
Balance -675 / -675 355 / 355
Review of Systems
-
History Source: Patient
Constitutional: Reports Weakness
Genitourinary: Denies Incontinence
Physical Exam
-
General: Well Developed, No Apparent Distress and Comfortable
HEENT: Normocephalic, Moist Mucous Membranes and Other (4 inch long laceration w karime (x20))
Respiratory: Wheezes and Non Labored Respirations; Negative Crackles
Cardiac: Regular Rhythm and S1/S2
GI: Soft, Nontender, Nondistended and Normal Bowel Sounds
Skin: Warm, Dry and Rash
Neuro: Awake, Alert, Oriented, AO x 3, Tremors (Mild resting tremor), Slurred Speech (Speech is slow but not slurred) and Other (Shuffling gait, less apparent than yesterday); Negative Facial Droop
Psych: Calm
[2024-10-25] MEDS: NOVOLOG FLEXPEN-LOW RESISTANCE SC ×2 (09:18→12:57)
[2024-10-25] MEDS: EMLA CREAM 1 GRAM TOPICAL (09:59)
[2024-10-25] MEDS: DUONEB INH ×2 (11:15→19:35)
[2024-10-25 11:19] VITALS: BP 133/80
[2024-10-25 12:33] LABS: Glucose - Point of Care 130 mg/dl (70-99)
--- NOTE | 2024-10-25 13:24 | CM ---
Received message from that patient is now IP. Met with patient, his daughter and spouse who were at bedside. They are all in agreement with SNF and chose the following facilities: [facility], [facility], [facility], [facility]
and [facility]. Will send referrals and follow back up with family. Patient's daughter stated that she is also available by email, . Will fax facilities.
Plan: Case management will continue to follow and assist with discharge planning. SNF upon medical clearance and bed availability.
[2024-10-25 15:12] VITALS: BP 159/80
[2024-10-25 17:08] LABS: Glucose - Point of Care 170 mg/dl (70-99)
[2024-10-25] MEDS: NOVOLOG FLEXPEN-LOW RESISTANCE 1 UNITS SC (18:16)
[2024-10-25] MEDS: XALATAN OPHTHALMIC SOLUTION 1 DROP RIGHT EYE (20:28)
[2024-10-25 21:30] LABS: Glucose - Point of Care 190 mg/dl (70-99)
[2024-10-25 23:02] VITALS: BP 148/76
[2024-10-26 06:00] VITALS: BMI 24.5
[2024-10-26 06:58] VITALS: BP 134/66
[2024-10-26] MEDS: SYNTHROID 50 MCG PO (07:09)
[2024-10-26] MEDS: ZESTRIL 20 MG PO (07:09)
[2024-10-26] MEDS: LIPITOR 20 MG PO (07:09)
[2024-10-26] MEDS: FOLVITE 2 MG PO (07:10)
[2024-10-26] MEDS: MUCINEX 600 MG PO (07:10)
[2024-10-26] MEDS: ZETIA 10 MG PO (07:10)
[2024-10-26] MEDS: PROTONIX 40 MG PO (07:10)
[2024-10-26] MEDS: COREG 6.25 MG PO ×2 (07:10→20:51)
[2024-10-26] MEDS: COSOPT EYE DROPS 1 DROP RIGHT EYE ×2 (07:12→20:52)
[2024-10-26] MEDS: DUONEB INH ×4 (07:50→19:08)
[2024-10-26 08:02] LABS: Glucose - Point of Care 151 mg/dl (70-99)
[2024-10-26 08:05] LABS: Hematocrit 39.4 % (39.0-52.0); Hemoglobin 13.7 g/dL (13.0-18.0); Mean Corp Hgb Conc. 34.8 g/dL (33.0-37.0); Mean Corpuscular Hgb 29.1 pg (27.0-31.0); Mean Corpuscular Volume 83.8 fL (80.0-94.0); Red Cell Dist. Width 14.5 % (11.5-14.5); White Blood Cell Count 10.2 10^3/uL (4.8-10.8)
--- NOTE | 2024-10-26 08:10 | W.PN.HOSP.TC ---
Addendum entered and electronically signed by Genoveva Choudhary MD 10/26/24 16:38:
I saw and evaluated the patient. I reviewed the resident�s note and agree with findings and plan as documented in the resident�s note.
Patient was feeling Much better no headaches
Site of suture removal-scalp injury looked stable no bleeding
Neuro exam unchanged
Head CT stable with no change in bleeding
Case discussed with neurology and neurosurgery
Neurosurgery cleared patient for DVT prophylaxis-started subcutaneous Lovenox
Watch the patient and needs discharge planning to rehab
Original Note:
Today's Communication/Plan
-
Follow-up with CM
Awaiting neurosurgery input
Assessment / Plan
Assessment / Plan
Patient is an 84 year old man recent discharged on 10/13 on 5-day steroids for viral bronchitis. He presents to ED with weakness and 3 episodes of fall since discharge. Denies any lightheadedness. Mentions he was not using walker that was
prescribed during last admission. Cough / wheezing are somewhat improved - but no fully resolved. He has had 3 falls.
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
HTN, DMII on , pulmonary valve stenosis, hypothyroidism, hyperlipidemia, glaucoma, GERD
Head CT (10/20): Did not show any signs of acute pathology
# Ambulatory dysfunction
Initially observation, now admitted to inpatient
Appreciate neurology-GBS unlikely, most likely postviral infection deconditioning causing weakness
TSH checked-normal
B12 levels checked-normal
Orthostatic vital signs-normal
Scalp karime (x20) placed on 10/18-removed 10/25 prior to brain MRI
Brain MRI (10/25) showed small, thin acute subdural hematomas are demonstrated involving the left para midline posterior falx and adjacent to the posterior right temporal inner table.
Neurosurgery consulted-awaiting input
Follow-up head CT (10/26): subtle subdural hematoma involving the posterior falx, measuring up to 2.8 mm in thickness.
Case management consulted and actively involved
PT OT: Recommend SNF
ST: Recommend regular diet,Thin Liquids
# Viral bronchitis
S/p completed 5 day course of prednisone 40
Currently saturating well on room air
No cough or shortness of breath
Wheezes heard on auscultation-continue nebs and mucolytics
Encourage incentive spirometer
# DMII with peripheral neuropathy
Recent Hemoglobin A1c= 6.6
Accu-Cheks
Low-dose SSI
Carb controlled diet
Will hold oral meds for now
# Essential hypertension
Continue lisinopril and Coreg
Amlodipine held for now
# GERD
continue Protonix 40 daily
# Hypothyroidism
continue home levothyroxine
# Hyperlipidemia
continue home regimen with pitavastatin and Zetia
# Glaucoma
Continue Xalatan
Continue dorzolamide-timolol drops
# Pulmonary valve stenosis
Does not need any intervention at this time
DVT Prophylaxis
SCD
Holding off anticoagulants for now
Full code
Anticipated Discharge: Within 24 hours
Subjective/Interval History
-
Date of Service: October 26, 2024
Objective Data
-
Labs:
Laboratory Results
10/26/24
07:27
WBC 10.2
Hgb 13.7
Hct 39.4
Plt Count Pending
Sodium Pending
Potassium Pending
Chloride Pending
Carbon Dioxide Pending
BUN Pending
Creatinine Pending
Glucose Pending
Calcium Pending
Vital Signs:
Vital Signs
Temp Pulse Resp BP Pulse Ox
98.3 F 70 18 134/66 99
10/26/24 06:58 10/26/24 07:09 10/26/24 06:58 10/26/24 07:09 10/26/24 06:58
I&O
10/25/24 10/26/24 10/27/24
06:59 06:59 06:59
Intake Total 1580 / 1580 600 / 600
Output Total 1225 / 1225 130 / 130
Balance 355 / 355 470 / 470
Review of Systems
-
History Source: Patient
Constitutional: Reports Weakness
Genitourinary: Denies Incontinence
Physical Exam
-
General: Well Developed, No Apparent Distress and Comfortable
HEENT: Normocephalic, Moist Mucous Membranes and Other (Dressing on site of scalp laceration, karime removed)
Respiratory: Wheezes and Non Labored Respirations; Negative Crackles
Cardiac: Regular Rhythm and S1/S2
GI: Soft, Nontender, Nondistended and Normal Bowel Sounds
Skin: Warm, Dry and Rash
Neuro: Awake, Alert, Oriented, AO x 3, Tremors (Mild resting tremor), Slurred Speech (Speech is slow but not slurred) and Other (Shuffling gait, improved); Negative Facial Droop
Psych: Calm
[2024-10-26] MEDS: NOVOLOG FLEXPEN-LOW RESISTANCE 1 UNITS SC ×3 (09:02→18:07)
[2024-10-26 09:59] LABS: Blood Urea Nitrogen 18 mg/dl (9-20); Calcium 9.3 mg/dl (8.4-10.2); Carbon Dioxide 17 mmol/L (22-30); Chloride 105 mmol/L (98-107); Estimated Creatinine Clearance 52 ml/min; Glucose 155 mg/dl (70-99); Potassium 4.2 mmol/L (3.5-5.1); Sodium 132 mmol/L (135-145); eGFR > 60.00
--- NOTE | 2024-10-26 10:20 | W.PN.NEURO.1 ---
Addendum entered and electronically signed by Anthony Schwab MD 10/27/24 17:39:
yesterday I spoke with the patient's daughter Vidal over the phone, who reports two years of slowly worsening gait and memory, which further supports my suspicions of Parkinson's disease causing his falls
It is certainly possible that if his deconditioning is addressed, that his Parkinson's symptoms will improve, that his shuffling will resolve, and he will go back to the slow decline that she's noticed the past 2 years.
I also spoke with her regarding the tiny parafalcine subdural, stable x1 week, advising no further work up. She agreed with her mother that a neurosurgery consult was needed, which i then requested.
Original Note:
Today's Communication / Plan
-
no further workup recommended
Neuro Assessment/Plan
Assessment
84 Year old man with bilateral lower extremity weakness x10 days since recent illness. Suspect deconditioning
No suspicion for GBS as he denies getting worse from one day to the next, denies that the weakness is ascending, denies numbness, has 1+ reflexes x4 limbs age appropriate, and age appropriate vibration sense.
exam with some parkinsonism, and he does admit to shuffling gait with the recent illness, but denies shuffling prior to this; could be the beginnings of symptomatic Parkinson's disease, or may improve as he continues to recover from this viral
bronchitis. we discussed starting Parkinson's medicine to help with the shuffling; it doesn't bother him and he declines.
Brain MRI 10/25 showing small L falx subdural; stable on Head CT 10/26 am, and in retrospect, faintly present on prior head CT 10/20. I reviewed the imaging with the patient, and as it is stable for a week, asymptomatic, no further intervention needed
Plan
PT/OT
Subjective/Objective
Subjective Data
Date of Service: October 26, 2024
Dr Carbajal feels about the same. weakness, shuffling gait
Objective Data
Vital Signs
Temp Pulse Resp BP Pulse Ox
36.8 C 70 18 134/66 99
10/26/24 06:58 10/26/24 07:09 10/26/24 06:58 10/26/24 07:09 10/26/24 06:58
Lab Results
10/26/24 07:27
10/26/24 07:27
Sodium 132 mmol/L (135-145) L 10/26/24 07:27
Potassium 4.2 mmol/L (3.5-5.1) 10/26/24 07:27
BUN 18 mg/dl (9-20) 10/26/24 07:27
Glucose 155 mg/dl (70-99) H 10/26/24 07:27
Calcium 9.3 mg/dl (8.4-10.2) 10/26/24 07:27
Vitamin B12 944 pg/ml (239-931) H 10/24/24 06:59
Patient Allergies
No Known Allergies Allergy (Verified 10/23/24 15:14)
[2024-10-26 12:07] LABS: Glucose - Point of Care 159 mg/dl (70-99)
[2024-10-26 14:17] VITALS: BP 148/87
--- NOTE | 2024-10-26 15:53 | CON.NS ---
Consultation
-
Date/Time Consultation Performed: 16:00; 10/26/2024
Performing Provider: Isabella
Chief Complaint
History of Present Illness
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 As part of his workup, he underwent a brain MRI, which demonstrated small
parafalcine subdural hematoma, and temporal subdural hematoma. Of note, he was recently admitted for bronchitis several weeks prior. He was discharged home with home physical therapy. He has also had 3 separate falls, most recent 1 was on the
morning of 10/23/2024.
Patient seen examined. Denies any headaches.
Review of Systems
-
10 point review systems including constitutional, ENT, cardiovascular, respiratory, GI, , hematologic, endocrinologic, musculoskeletal, neurologic was performed, and was negative except for as stated in HPI.
Medication and Allergies
Home Medications
Home Medications
�Medication �Instructions �Recorded
amlodipine 5 mg tablet 1.25 mg PO DAILY Blood Pressure 10/11/24
carvedilol 6.25 mg tablet 6.25 mg PO BID Blood Pressure 10/11/24
coenzyme Q10 100 mg capsule 200 mg PO BID Supplement 10/11/24
(CoQ-10)
dorzolamide 22.3 mg-timolol 6.8 1 drp RIGHT EYE BID Eye Condition 10/11/24
mg/mL eye drops
ergocalciferol (vitamin D2) 1,250 1,250 mcg PO WAITE Supplement 10/11/24
mcg (50,000 unit) capsule (Vitamin
D2)
ezetimibe 10 mg tablet 10 mg PO DAILY High Cholesterol 10/11/24
fexofenadine 180 mg tablet 180 mg PO DAILY Allergies 10/11/24
folic acid 1 mg tablet 2 mg PO DAILY Supplement 10/11/24
lansoprazole 30 mg capsule,delayed 30 mg PO DAILY Gastrointestinal 10/11/24
release Issue
latanoprost 0.005 % eye drops 1 drp RIGHT EYE HS Eye Condition 10/11/24
(Xalatan)
levothyroxine 50 mcg tablet 50 mcg PO DAILY Thyroid 10/11/24
lisinopril 20 mg tablet 20 mg PO DAILY Blood Pressure 10/11/24
pitavastatin calcium 4 mg tablet 4 mg PO DAILY High Cholesterol 10/11/24
sitagliptin phosphate 100 mg 100 mg PO DAILY Diabetes 10/11/24
tablet (Januvia)
albuterol sulfate 90 mcg/actuation 2 puff inhalation R Q4HPRN PRN sob 10/23/24
aerosol inhaler
ascorbic acid (vitamin C) 500 mg 500 mg PO DAILY Supplement 10/23/24
tablet (Vitamin C)
cephalexin 500 mg capsule 500 mg PO BID infection 10/23/24
magnesium oxide 500 mg PO DAILY Supplement 10/23/24
mupirocin 2 % topical ointment 1 applic topical BID wound 10/23/24
therapeutic multivitamin 1 tab PO DAILY Supplement 10/23/24
Allergies
Allergies
Allergy/AdvReac Type Severity Reaction Status Date / Time
No Known Allergies Allergy Verified 10/23/24 15:14
Physical Exam
-
Exam:
Awake, alert, no apparent distress.
Cranial nerves II to XII gross intact.
Motor: 5/5 strength bilaterally in upper and lower extremities without any pronator drift.
Sensation to light touch is intact bilaterally in upper lower extremities.
MRI of the brain with and without contrast performed on 10/25/2024 was reviewed. There is evidence of T1 hyperintensity along the left posterior fossa, consistent with likely subdural hemorrhage. There is also reported thin subdural hematoma
adjacent to the posterior right temporal lobe. Follow-up head CT performed on 10/26/2024 demonstrates stable appearance of interhemispheric/parafalcine subdural hematoma. No obvious evidence of brain compression is seen. Noncontrast head CT
performed on 10/20/2024 also demonstrates that this interhemispheric hyperdensity was present at that time.
Problems
-
Problem Status Onset Code
Ambulatory dysfunction R26.2
Physical deconditioning R53.81
Assessment / Plan
-
This is an 84-year-old gentleman that presents after several falls In the setting of bilateral lower extremity weakness due to recent illness. Brain MRI reveals small left parafalcine subdural hematoma, which is stable on repeat imaging studies.
Hyperdensity is also present on prior head CT from 10/20/2024.
Given that the patient has stable repeat imaging, and is asymptomatic, no further follow-up scans are needed, unless patient develops new symptoms.
Okay for DVT prophylaxis
If patient is asymptomatic at 1 week post hospital discharge, he can resume baby aspirin.
Follow up as needed.
[2024-10-26 16:34] LABS: Glucose - Point of Care 186 mg/dl (70-99)
--- NOTE | 2024-10-26 17:09 | CM ---
Met with patient and his and daughter at their request. They were updated that [facility], [facility], and possibly [facility] have offered beds. Family stated that patient would like a private room. Because of this it sounded like the family
was leaning towards [facility]. Will call them in the am.
Plan: Case management will continue to follow and assist with discharge planning. SNF when stable.
[2024-10-26] MEDS: LOVENOX 40 MG SC (18:06)
[2024-10-26] MEDS: XALATAN OPHTHALMIC SOLUTION 1 DROP RIGHT EYE (20:52)
[2024-10-26 21:43] LABS: Glucose - Point of Care 173 mg/dl (70-99)
[2024-10-26 23:00] VITALS: BP 143/86
[2024-10-27] MEDS: SYNTHROID 50 MCG PO (05:45)
[2024-10-27 06:00] VITALS: BMI 24.1
[2024-10-27] MEDS: DUONEB 3 ML INH ×2 (07:09→15:05)
[2024-10-27 07:20] VITALS: BP 137/78
[2024-10-27 07:48] LABS: Glucose - Point of Care 151 mg/dl (70-99)
--- NOTE | 2024-10-27 08:19 | W.PN.HOSP.TC ---
Addendum entered and electronically signed by Genoveva Choudhary MD 10/27/24 15:34:
I saw and evaluated the patient. I reviewed the resident�s note and agree with findings and plan as documented in the resident�s note.
CVS: S1-S2 normal
Chest: CTA B/L
Abdomen: Soft, NT / Bowel sounds present
Extremities: No edema, normal pulses
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
scalp wound OK
Patient is improving
Neurology and neurosurgery input noted
Rehab placement pending case management working on it
Will complete urine analysis also for infectious disease workup
D/W Daughter and updated.
Original Note:
Today's Communication/Plan
-
Continue care as before
Assessment / Plan
Assessment / Plan
Patient is an 84 year old man recent discharged on 10/13 on 5-day steroids for viral bronchitis. He presents to ED with weakness and 3 episodes of fall since discharge. Denies any lightheadedness. Mentions he was not using walker that was
prescribed during last admission. Cough / wheezing are somewhat improved - but no fully resolved. He has had 3 falls.
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
HTN, DMII on , pulmonary valve stenosis, hypothyroidism, hyperlipidemia, glaucoma, GERD
Head CT (10/20): Did not show any signs of acute pathology
# Ambulatory dysfunction
Initially observation, admitted to inpatient on 10/25
Appreciate neurology-GBS unlikely, most likely postviral infection deconditioning causing weakness- no further recommendations
TSH checked-normal
B12 levels checked-normal
Orthostatic vital signs-normal
Scalp karime (x20) placed on 10/18-removed 10/25 prior to brain MRI
Brain MRI (10/25) showed small, thin acute subdural hematomas are demonstrated involving the left para midline posterior falx and adjacent to the posterior right temporal inner table.
Neurosurgery consulted-appreciate input- No further follow-up scans are needed. Okay for DVT prophylaxis. If patient is asymptomatic at 1 week post hospital discharge, he can resume baby aspirin.
Follow-up head CT (10/26): subtle subdural hematoma involving the posterior falx, measuring up to 2.8 mm in thickness.
Case management consulted and actively involved
PT OT: Recommend SNF
ST: Recommend regular diet,Thin Liquids
# Viral bronchitis
S/p completed 5 day course of prednisone 40
Currently saturating well on room air
No cough or shortness of breath
Continue nebs and mucolytics
Encourage incentive spirometer
# DMII with peripheral neuropathy
Recent Hemoglobin A1c= 6.6
Accu-Cheks
Low-dose SSI
Carb controlled diet
Will hold oral meds for now
# Essential hypertension
Continue lisinopril and Coreg
Amlodipine held for now
# GERD
continue Protonix 40 daily
# Hypothyroidism
continue home levothyroxine
# Hyperlipidemia
continue home regimen with pitavastatin and Zetia
# Glaucoma
Continue Xalatan
Continue dorzolamide-timolol drops
# Pulmonary valve stenosis
Does not need any intervention at this time
DVT Prophylaxis
Lovenox
Full code
Anticipated Discharge: 24 - 48 hours
Subjective/Interval History
-
Date of Service: October 27, 2024
Patient does not offer any complaints.
Objective Data
-
Labs:
Laboratory Results
10/27/24
08:17
WBC Pending
Hgb Pending
Hct Pending
Plt Count Pending
Sodium Pending
Potassium Pending
Chloride Pending
Carbon Dioxide Pending
BUN Pending
Creatinine Pending
Glucose Pending
Calcium Pending
Vital Signs:
Vital Signs
Temp Pulse Resp BP Pulse Ox
97.6 F 64 20 137/78 100
10/27/24 07:20 10/27/24 07:20 10/27/24 07:20 10/27/24 07:20 10/27/24 07:20
I&O
10/26/24 10/27/24 10/28/24
06:59 06:59 06:59
Intake Total 600 / 600 120 / 120
Output Total 130 / 130
Balance 470 / 470 120 / 120
Review of Systems
-
History Source: Patient
All other systems: Reviewed and negative
Physical Exam
-
General: Well Developed, No Apparent Distress and Comfortable
HEENT: Normocephalic, Moist Mucous Membranes and Other (Dressing on site of scalp laceration, clean, w/o any purulent discharge, karime removed and healing well)
Respiratory: Wheezes and Non Labored Respirations; Negative Crackles
Cardiac: Regular Rhythm and S1/S2
GI: Soft, Nontender, Nondistended and Normal Bowel Sounds
Skin: Warm, Dry and Rash
Neuro: Awake, Alert, Oriented, AO x 3, Tremors (Mild resting tremor), Slurred Speech (Speech is slow but not slurred) and Other (Shuffling gait, improved); Negative Facial Droop
Psych: Calm
[2024-10-27] MEDS: NOVOLOG FLEXPEN-LOW RESISTANCE 1 UNITS SC (08:30)
[2024-10-27 09:17] LABS: % Basophils 0.7 % (0-2); % Eosinophils 1.9 % (0-6); % Immature Granulocytes 0.6 % (0-0.5); % Lymphocytes 32.6 % (20.5-51.1); % Neutrophils 58.2 % (42.2-75.2); Absolute Basophils 0.1 10^3/uL (0-0.2); Absolute Eosinophils 0.2 10^3/uL (0-0.7); Absolute Immature Granulocytes 0.1 10^3/uL (0-0.05); Absolute Lymphocytes 3.5 10^3/uL (1.2-3.4); Absolute Monocytes 0.6 10^3/uL (0.1-0.6); Absolute Neutrophils 6.2 10^3/uL (1.4-6.5); Hematocrit 40.9 % (39.0-52.0); Hemoglobin 14.1 g/dL (13.0-18.0); Mean Corp Hgb Conc. 34.5 g/dL (33.0-37.0); Mean Corpuscular Hgb 29.1 pg (27.0-31.0); Mean Corpuscular Volume 84.5 fL (80.0-94.0); Mean Platelet Volume 11.4 fL (7.4-10.4); Nucleated Red Blood Cells % 0 % (-); Platelet Count 176 10^3/uL (130-400); Red Blood Cell Count 4.84 10^6/uL (4.70-6.10); Red Cell Dist. Width 14.6 % (11.5-14.5); White Blood Cell Count 10.7 10^3/uL (4.8-10.8)
[2024-10-27 09:22] LABS: Blood Urea Nitrogen 24 mg/dl (9-20); Calcium 9.7 mg/dl (8.4-10.2); Carbon Dioxide 17 mmol/L (22-30); Chloride 105 mmol/L (98-107); Estimated Creatinine Clearance 47 ml/min; Glucose 170 mg/dl (70-99); Potassium 4.3 mmol/L (3.5-5.1); Sodium 134 mmol/L (135-145); eGFR > 60.00
[2024-10-27] MEDS: PROTONIX 40 MG PO (10:12)
[2024-10-27] MEDS: ZESTRIL 20 MG PO (10:12)
[2024-10-27] MEDS: FOLVITE 2 MG PO (10:13)
[2024-10-27] MEDS: ZETIA 10 MG PO (10:13)
[2024-10-27] MEDS: LIPITOR 20 MG PO (10:13)
[2024-10-27] MEDS: COREG 6.25 MG PO ×2 (10:13→20:35)
[2024-10-27] MEDS: COSOPT EYE DROPS 1 DROP RIGHT EYE ×2 (10:15→20:38)
--- NOTE | 2024-10-27 10:43 | CM ---
Addendum entered by KATHERIN Soto 10/27/24 13:11:
Daughter made aware that patient will have to go either by w/c or family to facility.
Addendum entered by KATHERIN Soto 10/27/24 13:04:
Patient's daughter chose [facility].
Will set up transportation for tomorrow. No auth needed.
# For report [phone] and fax [phone].
Original Note:
Per [facility], [facility] and [facility] SNFs can offer a bed starting on Wednesday. Placed a call to Summer in admissions at [facility] who confirmed bed availability for Wednesday in a private room. # For report
[phone] and fax# [phone]. Summer stated any time tomorrow late morning/early afternoon would be good.
Placed a call to [facility] and spoke with Lashaun in admissions who stated that she can offer a private room for patient, Wednesday. # For report [phone] and fax [phone].
[facility] not have private rooms.
Spoke with patient's daughter who stated that she will discuss with patient and his and render determination about where they want for patient to go.
Plan: Case management will continue to follow and assist with discharge planning. Family deciding about [facility] or [facility] for SNF. Will set up transport once decided.
[2024-10-27] MEDS: DUONEB INH ×2 (11:19→19:28)
[2024-10-27 11:39] LABS: Glucose - Point of Care 125 mg/dl (70-99)
[2024-10-27] MEDS: NOVOLOG FLEXPEN-LOW RESISTANCE SC ×2 (11:46→17:06)
[2024-10-27 12:39] VITALS: BP 107/64; PULSE 69
[2024-10-27 12:41] VITALS: BP 107/64; PULSE 69
[2024-10-27 14:35] VITALS: BP 114/65
[2024-10-27 16:40] LABS: Glucose - Point of Care 121 mg/dl (70-99)
[2024-10-27] MEDS: LOVENOX 40 MG SC (17:58)
[2024-10-27 18:18] LABS: Urine Albumin Negative (Neg - Trace); Urine Bilirubin Negative (Negative); Urine Character Clear (Clear); Urine Color Yellow; Urine Glucose Negative (Negative); Urine Ketone Negative (Negative); Urine Leukocyte Negative (Negative); Urine Nitrite Negative (Negative); Urine Occult Blood Negative (Negative); Urine Specific Gravity 1.015 (<1.030); Urine Urobilinogen Negative (Neg - 1+)
[2024-10-27] MEDS: XALATAN OPHTHALMIC SOLUTION 1 DROP RIGHT EYE (20:38)
[2024-10-27 21:23] LABS: Glucose - Point of Care 176 mg/dl (70-99)
[2024-10-27 23:24] VITALS: BP 118/59
[2024-10-28] MEDS: SYNTHROID 50 MCG PO (05:15)
[2024-10-28 06:00] VITALS: BMI 24.0
[2024-10-28 08:04] LABS: Glucose - Point of Care 131 mg/dl (70-99)
[2024-10-28 08:25] VITALS: BP 139/73
[2024-10-28] MEDS: NOVOLOG FLEXPEN-LOW RESISTANCE SC ×2 (08:31→12:43)
[2024-10-28] MEDS: ZESTRIL 20 MG PO (08:32)
[2024-10-28] MEDS: COSOPT EYE DROPS 1 DROP RIGHT EYE (08:32)
[2024-10-28] MEDS: ZETIA 10 MG PO (08:32)
[2024-10-28] MEDS: LIPITOR 20 MG PO (08:32)
[2024-10-28] MEDS: PROTONIX 40 MG PO (08:32)
[2024-10-28] MEDS: FOLVITE 2 MG PO (08:32)
[2024-10-28] MEDS: COREG 6.25 MG PO (08:32)
[2024-10-28 09:06] LABS: % Basophils 0.9 % (0-2); % Eosinophils 1.6 % (0-6); % Immature Granulocytes 0.4 % (0-0.5); % Lymphocytes 33.5 % (20.5-51.1); % Monocytes 7.6 % (1.7-9.3); Absolute Basophils 0.1 10^3/uL (0-0.2); Absolute Eosinophils 0.2 10^3/uL (0-0.7); Absolute Lymphocytes 3.2 10^3/uL (1.2-3.4); Absolute Monocytes 0.7 10^3/uL (0.1-0.6); Absolute Neutrophils 5.3 10^3/uL (1.4-6.5); Hematocrit 39.9 % (39.0-52.0); Mean Corp Hgb Conc. 35.1 g/dL (33.0-37.0); Mean Corpuscular Hgb 29.4 pg (27.0-31.0); Mean Corpuscular Volume 83.8 fL (80.0-94.0); Mean Platelet Volume 10.9 fL (7.4-10.4); Nucleated Red Blood Cells % 0 % (-); Platelet Count 146 10^3/uL (130-400); Red Blood Cell Count 4.76 10^6/uL (4.70-6.10); Red Cell Dist. Width 14.4 % (11.5-14.5); White Blood Cell Count 9.5 10^3/uL (4.8-10.8)
[2024-10-28 09:29] LABS: Blood Urea Nitrogen 29 mg/dl (9-20); Calcium 9.6 mg/dl (8.4-10.2); Carbon Dioxide 19 mmol/L (22-30); Chloride 104 mmol/L (98-107); Estimated Creatinine Clearance 43 ml/min; Glucose 139 mg/dl (70-99); Potassium 4.3 mmol/L (3.5-5.1); Sodium 135 mmol/L (135-145); eGFR > 60.00
[2024-10-28 12:02] LABS: Glucose - Point of Care 133 mg/dl (70-99)
[2024-10-28 12:51] VITALS: BP 162/83
--- NOTE | 2024-10-28 12:57 | W.PN.HOSP.TC ---
Today's Communication/Plan
-
Discharge to rehab
Assessment / Plan
Assessment / Plan
84 y/o man with gen weakness and falls. Patient was recently admitted here with bronchitis and was discharged. He also had acute kidney injury at that time. says he had falls at home . was seen in urgent care on the h and had karime placed
in the scalp post for lac.
I saw and evaluated the patient. I reviewed the resident�s note and agree with findings and plan as documented in the resident�s note except for changes in my documentation
Patient was seen earlier today. Late documentation
He was seated in the chair denied any pain
Cardiovascular system S1-S2 appreciated systolic murmur at aortic area
Chest clear to auscultation
Abdomen soft and nontender
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
No facial droop
Normal motor exam bilaterally
Reflexes decreased lower extremities
Plantars downgoing
Made patient ambulate he was able to ambulate with contact-guard
# Ambulatory dysfunction/generalized weakness/falls.
multifactorial
Exacerbation of peripheral neuropathy, conditioning, subdural hemorrhage
Normal TSH and B12 levels
Orthostatic vital signs
Patient has been slowly improving
# Scalp laceration
Wound looks stable
Karime removed on the
# Recent acute bronchitis
Not hypoxic
Continue nebulizer treatments, mucolytics, Acapella
# Diabetes with peripheral neuropathy-hemoglobin A1c 6.6
Patient is on Januvia 100 mg as outpatient, restart at 50 mg dose
Accu-Cheks and sliding scale coverage
# Hypertension
Patient is on Coreg 6.25 p.o. twice daily, amlodipine 1.25 mg p.o. daily, lisinopril 20 mg daily as outpatient.
Lisinopril and Coreg to be continued
Amlodipine stopped
# Valvular heart disease
Echo 07/07/2024-EF 60 to 65%, normal regional wall motion abnormality, normal RV size and function, mild to moderate , mild to moderate TR, PA pressure 30 to 35 mmHg
# Hyperlipidemia-continue Statin, Zetia
# Hypothyroidism-continue Synthroid
# Glaucoma-continue Xalatan, dorzolamide-timolol drops.
# GERD-continue PPI
# DVT Prophylaxis- Lovenox
# Full CODE
D/W RN
Discussed with case management
Daughter updated in detail yesterday all questions answered
More than 30 minutes spent in discharge including
Final examination of the patient
Summarizing hospital stay
Instructions for continuing care to all relevant caregivers
Preparation of discharge records, prescriptions, and referral forms
Total time spent (in minutes): 33 min
Anticipated Discharge: Today
Subjective/Interval History
-
Date of Service: October 28, 2024
Objective Data
-
Labs:
Laboratory Results
10/28/24
08:37
WBC 9.5
Hgb 14.0
Hct 39.9
Plt Count 146
Sodium 135
Potassium 4.3
Chloride 104
Carbon Dioxide 19 L
BUN 29 H
Creatinine 1.1
Glucose 139 H
Calcium 9.6
Vital Signs:
Vital Signs
Temp Pulse Resp BP Pulse Ox
97.8 F 71 21 162/83 99
10/28/24 12:51 10/28/24 12:51 10/28/24 12:51 10/28/24 12:51 10/28/24 12:51
I&O
10/27/24 10/28/24 10/29/24
06:59 06:59 06:59
Intake Total 120 / 120 1140 / 1140
Output Total 200 / 200
Balance 120 / 120 940 / 940
--- NOTE | 2024-10-28 14:17 | W.DS.TRANS ---
Addendum entered and electronically signed by Genoveva Choudhary MD 10/28/24 16:00:
Dictation- [id number]
Original Note:
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
-
Discharge Instructions:
Discharge Diagnosis/Procedures Posterior Falx subdural hematoma status post
mechanical fall
scalp laceration
Ambulatory dysfunction/generalized weakness
Recent acute bronchitis
Diabetes with peripheral neuropathy
Hypothyroidism
Hyperlipidemia
Diet Diabetic, Carb Controlled,Low Sodium
Activity With assistance,As tolerated
Driving Restrictions Not until seen by your Dr
Bathing Restrictions None
Others Tests EMG and NCS as outpatient.
Outpatient neurology follow-up to further workup
falls and gait dysfunction
Instructions:
Stand-Alone Forms:
Changes to Home Medications: Yes
Discharge Medications:
DC Medications w/original date entered in [email or web address]
carvedilol 6.25 mg tablet 6.25 mg PO BID Blood Pressure 10/11/24
coenzyme Q10 100 mg capsule (CoQ-10) 200 mg PO BID Supplement 10/11/24
dorzolamide 22.3 mg-timolol 6.8 mg/mL eye drops 1 drp RIGHT EYE BID Eye Condition 10/11/24
ergocalciferol (vitamin D2) 1,250 mcg (50,000 unit) capsule (Vitamin D2) 1,250 mcg PO WAITE Supplement 10/11/24
ezetimibe 10 mg tablet 10 mg PO DAILY High Cholesterol 10/11/24
fexofenadine 180 mg tablet 180 mg PO DAILY Allergies 10/11/24
folic acid 1 mg tablet 2 mg PO DAILY Supplement 10/11/24
lansoprazole 30 mg capsule,delayed release 30 mg PO DAILY Gastrointestinal Issue 10/11/24
latanoprost 0.005 % eye drops (Xalatan) 1 drp RIGHT EYE HS Eye Condition 10/11/24
levothyroxine 50 mcg tablet 50 mcg PO DAILY Thyroid 10/11/24
lisinopril 20 mg tablet 20 mg PO DAILY Blood Pressure 10/11/24
albuterol sulfate 90 mcg/actuation aerosol inhaler 2 puff inhalation R Q4HPRN PRN sob 10/23/24
ascorbic acid (vitamin C) 500 mg tablet (Vitamin C) 500 mg PO DAILY Supplement 10/23/24
magnesium oxide 500 mg PO DAILY Supplement 10/23/24
mupirocin 2 % topical ointment 1 applic topical BID wound 10/23/24
therapeutic multivitamin 1 tab PO DAILY Supplement 10/23/24
atorvastatin 20 mg tablet 20 mg PO DAILY #30 tabs 10/27/24
sitagliptin phosphate 100 mg tablet (Januvia) 50 mg (1/2 x 100 mg) PO DAILY Diabetes #0 tabs 10/28/24
Home Medication Changes
Januvia dose decreased
Atorvastatin changed to atorvastatin
Amlodipine stopped
Pending Results: No
[2024-10-28 14:50] LABS: COVID-19 Antigen Negative (Negative)
--- NOTE | 2024-10-28 16:54 | CM ---
Patient with Dx subdural hematoma. Covid negative 10/28.
Spoke with Miriam nurse [facility] x [phone]; they are able to accept the patient today after 3pm. for report [phone] and fax [phone].
Spoke with patient and daughter Vidal;
both agree to d/c today to [facility] and daughter will provide transport.
IMM completed with daughter.
Plan [facility] SNF today with daughter transporting.
== END 2024-10-28 15:02 | DRG 202 ==
LOC: 3 WEST ACU 10:02
PROVIDERS: Emergency Medicine; Student in an Organized Health Care Education/Training Program; ADMITTING PHYSICIAN Hospitalist; ATTENDING PHYSICIAN Hospitalist; CONSULT PHYSICIAN Psychiatry & Neurology Clinical Neurophysiology; EMERGENCY PHYSICIAN Emergency Medicine; FAMILY PHYSICIAN Family Medicine; OTHER PHYSICIAN Neurological Surgery
DX: J20.9 Acute bronchitis, unspecified (principal); S06.5XAA Traumatic subdural hemorrhage with loss of consciousness status unknown, initial encounter; W18.30XA Fall on same level, unspecified, initial encounter; R26.2 Difficulty in walking, not elsewhere classified; E11.42 Type 2 diabetes mellitus with diabetic polyneuropathy; E11.649 Type 2 diabetes mellitus with hypoglycemia without coma; E03.9 Hypothyroidism, unspecified
CPT/HCPCS: 70450; 70551; 71046; 80048; 80053; 81003; 82607; 82962; 84443; 84484; 85025; 85027; 87070; 87502; 87811; 92610; 93005; 94640; 97116; 97163; 97166; 97535; 99285

== ENCOUNTER 2025-04-22 14:24 | Inpatient (IN) | payer MEDICARE, BC, SELFPAY ==
[2025-04-20 20:07] VITALS: BP 149/72
[2025-04-20 20:10] VITALS: BMI 24.3
[2025-04-20 21:00] VITALS: BP 140/79
[2025-04-20 22:00] VITALS: BP 148/75
[2025-04-20 23:00] VITALS: BP 140/67
--- NOTE | 2025-04-20 23:20 | EDRN ---
Report received, introduced myself to patient who is resting, vss, call adams in reach.
--- NOTE | 2025-04-20 23:28 | ED.GENMED ---
History of Present Illness
General
Chief Complaint: Weakness
Source: patient
Exam Limitations: none
Time Seen by Provider: 04/20/25 21:58
Nursing documentation reviewed up to this point in time: agreed with
History of Present Illness
History of Present Illness:
Patient is a 21-year-old male with history of Parkinson-like illness hypertension hyperlipidemia diabetes presents to the ER for evaluation. Patient started with chills yesterday and tested positive for COVID today. He reports he is very weak and
could not even stand. He complains of mild cough denies any shortness of breath. He lives at home with his .
Past History
Past History
ED Past Medical History: GERD, HTN, Hypercholesterolemia and NIDDM
ED Past Surgical History: Appendectomy
Social History
Tobacco: Non-smoker
Alcohol: None
Drug: None
Personal:
Living: with family
Phy Exam
General Physical Exam
General Presentation: no apparent distress
General age: appears stated age
General Skin: warm and dry
General Habitus: normal
General Mental: alert
General Hydration: appears well hydrated
Cardiovascular Exam
Cardiovascular Exam: regular rate/rhythm, no murmur and normal peripheral pulses
Pulmonary Exam
Pulmonary Exam: lungs clear and no respiratory distress
Neurological Exam
Neurological Exam: alert, oriented x3, no motor deficits and no sensory deficits
Musculoskeletal Exam
Musculoskeletal Exam: full ROM
Skin Exam
Skin Exam: normal color and warm/dry
Psychiatric Exam
Psychiatric Exam: normal mood/affect
Sepsis
Sepsis Screening
Sepsis Assessment: Sepsis Ruled Out
Sepsis Screen
Sepsis Screen: Sepsis Ruled Out
Date: 04/21/25
Time: 19:57
Course
Orders/Labs/Results
Orders:
Orders
04/20/25 23:26
Urinalysis Reflex To Culture Urgent
Date Specimen was Collected: 04/20/25
Time Specimen was Collected: 23:32
04/20/25 23:27
Electrocardiogram (*1) Stat
Reason for Study: Other
Other Reason for Exam: chest pain
Cardiac Monitoring- Treatment ONCE
EKG- Treatment ONCE
IV Insert/Care/Rem.- Treatment PRN
CR Chest - 2 Views Urgent
Comment:
Reason For Exam: weakness covid
04/20/25 23:49
COVID-19 Antigen Urgent
Source: Nasal Swab
Complete Blood Count/With Diff Urgent
Comprehensive Metabolic Panel Urgent
Manual Differential Urgent
Comment: ADD ON
Influenza A+B Rapid Molecular Urgent
JESSICA Source: Nasal Swab
Specimen Description:
04/21/25 00:27
Acetaminophen [Tylenol] 650 mg PO NOW STA
04/21/25 00:50
Benzonatate [Tessalon Perles] 200 mg .ROUTE .STK-MED ONE
04/21/25 00:51
Benzonatate [Tessalon Perles] 200 mg PO NOW STA
04/21/25 01:16
Benzonatate [Tessalon Perles] 200 mg PO NOW STA
04/21/25 01:44
Admit/Transfer Patient As Directed
Co-Sign Provider:
Level of Care: Observation services
Assign to:: Medical/Surgical
Physician / Group: Abram
Diagnosis: COVID, Weakness
PRN Pain Medication Management As Directed
May give lesser potent ordered pain med per pt: Yes
preference::
Protocol:: Medication orders for pain may be administered in a
manner that supports deferring to patient preference
when the pt is:
- Requesting an ordered lesser potent pain medication.
Least to most potent pain medications are defined
as: acetaminophen < NSAID < tramadol < opioids
(morphine, oxycodone, hydromorphone).
- Requesting a lesser dose of the same medication IF
ORDERED.
- Requesting a less intrusive route of administration
if both routes are prescribed by the provider (PO <
IV).
04/21/25 01:45
Code Status As Directed
Resuscitation Status: Full Code
04/21/25 03:04
Acetaminophen [Tylenol] 650 mg PO Q4HPRN PRN
Albuterol [ProAIR HFA INHALER] 2 puff INH R Q4HPRN PRN
Benzonatate [Tessalon Perles] 200 mg PO TIDPRN PRN
Dextrose 50%-Water [Dextrose 50% Syringe] 12.5 grams IV [id number] PRN
Glucagon [GlucaGen] 1 mg IM PRN PRN
04/21/25 03:04
Activity As Directed
Activity Level: Ambulate
With Assistance
Bedside Glucose Monitoring As Directed
Frequency: AC&HS
Additional Instructions:: Change to q6h if pt on TPN, tube feeding or not eating
Bladder Scan As Directed
Follow Bladder Retention/Intermittent Cath Algorithm?: Yes
PRN if no void in __ hours: 6
Frequency: Per Retention Algorithm
If Bladder Scan Result >: 400
then:: Straight cath
I/O [Intake/ Output] As Directed
Frequency: Per unit guidelines
Precautions As Directed
Type of Precautions: Droplet
Straight Cath As Directed
Frequency: Per Retention Algorithm
Additional Instructions: straight cath as needed per acute urinary retention algorithm for 24 hrs
Additional Instructions: for bladder scan greater than 400 mL
Vital Signs As Directed
Frequency: Per unit guidelines
Weight As Directed
Frequency: Daily
Oxygen Therapy [O2 Therapy] [RESP] Routine
Titrate/Wean O2 to maintain O2 sat greater than (%): 94
PT Consult [Pt Eval And Treat] Routine
Activity Level: Ambulate
With Assistance
DX Deep Vein Thrombosis Video Routine
04/21/25 Breakfast
2000 calorie (17 carb) Diabetic
At Your Request: Full Participation
Levothyroxine [Synthroid] 50 mcg PO DAILY @ 0600
04/21/25 06:45
Basic Metabolic Panel IN AM
CRP [C-Reactive Protein] IN AM
Complete Blood Count/No Diff IN AM
ESR [Erythrocyte Sed Rate] IN AM
Glycohemoglobin (HgbA1c) IN AM
04/21/25 07:30
Insulin Aspart Corrective Low [Novolog Flexpen-Low Resistance] See Protocol SC AC
04/21/25 08:00
Carbidopa/Levodopa [Sinemet 25-100] 1 tablet PO TID
Carvedilol [Coreg] 6.25 mg PO BID
Dorzolamide HCl [Trusopt 2% Ophthalmic Solution] 1 drop RIGHT EYE BID
FOLic ACID [Folvite] 2 mg PO DAILY
Guaifenesin [Mucinex] 600 mg PO Q12
Lisinopril [Zestril] 20 mg PO DAILY
Nirmatrelvir/Ritonavir [Paxlovid 150-100 mg Dose Pack] 1 dose PO BID
Pantoprazole [Protonix] 40 mg PO DAILY
Pregabalin [Lyrica] 100 mg PO BID
Sitagliptin Phosphate [Januvia] 100 mg PO DAILY
04/21/25 18:00
Enoxaparin Sodium [Lovenox] 40 mg SC QPM
04/21/25 22:00
Famotidine [Pepcid] 20 mg PO HS
04/22/25 08:00
Ergocalciferol [Drisdol (Vitamin D2)] 50,000 units PO WAITE
Abnormal Lab Results
04/20/25
23:49
RBC 4.63 L 10^6/uL
(4.70-6.10)
Hgb 12.5 L g/dL
(13.0-18.0)
Hct 38.0 L %
(39.0-52.0)
MCHC 32.9 L g/dL
(33.0-37.0)
RDW 16.9 H %
(11.5-14.5)
MPV 11.1 H fL
(7.4-10.4)
Monocytes (Manual) 14 H %
(2-9)
Chloride 109 H mmol/L
(98-107)
BUN 22 H mg/dl
(9-20)
Glucose 108 H mg/dl
(70-99)
SARS-CoV-2 Antigen Positive A
(Negative)
04/20/25 23:49
04/20/25 23:49
Vital Signs
Initial and Last Documented VS:
Initial Vital Signs
Temp
101.5 F H
04/20/25 20:02
Last Documented Vital Signs
Temp Pulse Resp BP Pulse Ox
97.7 F 72 20 114/58 96
04/21/25 15:00 04/21/25 15:00 04/21/25 15:00 04/21/25 16:45 04/21/25 15:00
MDM/Problems Addressed
MDM/Problems Addressed:
As documented patient is an 84-year-old male with Parkinson/Parkinson-like disease presents to the ER for evaluation of weakness. He tested positive for COVID at home mild cough. He denies any shortness of breath. He has no acute distress not
hypoxic no evidence for pneumonia. With weakness due to COVID and pre-existing of Parkinson's will admit.
Chronic conditions affecting care:
parkinsons
*Radiology
Radiology exam reviewed: radiology read reviewed
*Pulse Oximetry
SaO2: 98
Nasal Cannula flow liters per minute: 98
Oxygen Mode of Delivery: Room air
Patient hypoxic: no
*EKG
Interpreted by ED Provider?: Yes
Interpretation: abnormal
Comparison EKG: no changes
Heart Rate: 74
Rate: normal
Rhythm: sinus
Ischemia: no ischemia
*Critical Care Note
Total Time (30-74mins, 75-104mins- exclusive of procedures): Not Applicable
ED Attending Note
-
Portions of this chart may have been created with voice recognition software.� Occasional wrong word or��sound alike� substitutions may have occurred due to the inherent limitations of voice recognition software.
Discharge Plan
Departure
Patient Disposition: Admit
Date of Disposition: 04/21/25
Time of Disposition: 00:44
Admit to: Med/Surg
Admit to doctor: hospitalist
Presentation/result/management discussed w/ accepting MD/DO: Hospitalist
Patient with high blood pressure during this ER visit?: Yes
Condition: Fair
Covid-19: Not Applicable
Discharge Problem:
COVID-19, Weakness
Interventions
Interventions:
*Risk Screen - Suicide Last Done: 04/21/25 03:14
*General Assessment Last Done: 04/20/25 20:11
*Neglect/Abuse Screening Last Done: 04/20/25 20:11
*ED- Fall Risk Assessment Last Done: 04/20/25 20:11
*ED COVID-19 Vaccine History Last Done: 04/21/25 03:14
*Nursing Disposition Last Done: 04/21/25 03:16
ED- Cardiac Assessment Last Done: 04/20/25 20:11
ED- Neurological Assessment Last Done: 04/20/25 20:11
ED- Pulmonary Assessment Last Done: 04/20/25 23:06
Discharge Date and Time
Discharge Date/Time: 04/21/25 03:17
[2025-04-21] VITALS (9 sets, daily range): BP systolic 100–146; BP diastolic 55–74; PULSE 73; O2SAT 98; BMI 25.9
[2025-04-21 00:17] LABS: COVID-19 Antigen Positive (Negative)
[2025-04-21 00:26] LABS: ALT (SGPT) 24 U/L (0-50); AST (SGOT) 24 U/L (17-59); Albumin 3.9 g/dl (3.5-5.0); Alkaline Phosphatase 42 U/L (38-126); Blood Urea Nitrogen 22 mg/dl (9-20); Calcium 8.9 mg/dl (8.4-10.2); Carbon Dioxide 23 mmol/L (22-30); Chloride 109 mmol/L (98-107); Estimated Creatinine Clearance 36 ml/min; Glucose 108 mg/dl (70-99); Potassium 4.3 mmol/L (3.5-5.1); Sodium 140 mmol/L (135-145); Total Protein 6.6 g/dl (6.3-8.2); eGFR 53.84
[2025-04-21] MEDS: TYLENOL 650 MG PO ×2 (00:35→08:46)
[2025-04-21 00:41] LABS: Hematocrit 38.0 % (39.0-52.0); Hemoglobin 12.5 g/dL (13.0-18.0); Mean Corp Hgb Conc. 32.9 g/dL (33.0-37.0); Mean Corpuscular Volume 82.1 fL (80.0-94.0); Platelet Count 190 10^3/uL (130-400); Red Cell Dist. Width 16.9 % (11.5-14.5)
[2025-04-21 00:59] LABS: Urine Character Clear (Clear)
[2025-04-21] MEDS: TESSALON PERLES 200 MG PO ×3 (01:16→21:48)
--- NOTE | 2025-04-21 01:35 | EDRN ---
Dr Valverde at bedside working on admission orders
[2025-04-21 01:46] LABS: Absolute Neutrophils -Man Diff 4.0 10^3/uL (1.4-6.5)
[2025-04-21 01:47] LABS: Basophilic Stippling 2+; Normal RBC Morphology No; Platelets Checked Yes; Total Cells Counted 100
--- NOTE | 2025-04-21 01:48 | HPS.HSE ---
Family Physician
-
Family Physician: Ollie Oates
Chief Complaint
-
Cough, Fatigue
History of Present Illness
Patient is an 84y M with PMH significant for hypertension, DM-II and hypothyroidism who presents to ED complaining of cough, weakness and malaise. Patient states that his symptoms started yesterday. He denies any known sick contacts. He states
that he had his COVID and Flu boosters in Fall 2023. He reports cough that has mostly been non-productive. Today he felt extremely weak and was unable to even stand / ambulate. He presented to the ED for further evaluation.
Patient in the ED is noted to be febrile to 101.5 and is positive for COVID-19.
Medical History
Past Medical History
Past Medical History: Reports Other
Additional Past Medical History:
Valvular Heart Disease: Mild/Moderate Aortic Stenosis, Mild/Moderate Tricuspid Regurgitation
Essential Hypertension
Hyperlipidemia
Diabetes Mellitus, Type II
Diabetic Neuropathy
Hypothyroidism
GERD
Glaucoma
Past Surgical History: Reports Other
Additional Past Surgical History:
Appendectomy
Social History
Tobacco: Non-smoker
Alcohol: Occasional
Family History
Family History: Not pertinent
Allergies / Home Medications
Allergies reflects when Allergies were last updated in [facility].
Home Medications with original date entered in [facility]
Allergy/Medication List:
Allergies
Allergy/AdvReac Type Severity Reaction Status Date / Time
No Known Allergies Allergy Verified 10/23/24 15:14
Home Medications
carvedilol 6.25 mg tablet 6.25 mg PO BID Blood Pressure 10/11/24
coenzyme Q10 100 mg capsule (CoQ-10) 200 mg PO BID Supplement 10/11/24
dorzolamide 22.3 mg-timolol 6.8 mg/mL eye drops 1 drp RIGHT EYE BID Eye Condition 10/11/24
ergocalciferol (vitamin D2) 1,250 mcg (50,000 unit) capsule (Vitamin D2) 1,250 mcg PO WAITE Supplement 10/11/24
ezetimibe 10 mg tablet 10 mg PO DAILY High Cholesterol 10/11/24
fexofenadine 180 mg tablet 180 mg PO DAILY Allergies 10/11/24
folic acid 1 mg tablet 2 mg PO DAILY Supplement 10/11/24
lansoprazole 30 mg capsule,delayed release 30 mg PO DAILY Gastrointestinal Issue 10/11/24
levothyroxine 50 mcg tablet 50 mcg PO DAILY Thyroid 10/11/24
lisinopril 20 mg tablet 20 mg PO DAILY Blood Pressure 10/11/24
therapeutic multivitamin 1 tab PO DAILY Supplement 10/23/24
sitagliptin phosphate 100 mg tablet (Januvia) 50 mg (1/2 x 100 mg) PO DAILY Diabetes #0 tabs 10/28/24
carbidopa 25 mg-levodopa 100 mg tablet 1 tab PO TID 04/21/25
famotidine 40 mg tablet 40 mg PO HS 04/21/25
glipizide 2.5 mg tablet, extended release 24 hr 2.5 mg PO DAILY 04/21/25
pitavastatin calcium 4 mg tablet 4 mg PO DAILY 04/21/25
pregabalin 100 mg capsule 100 mg PO BID 04/21/25
sulfacetamide sodium 10 % eye drops 1 drp ophthalmic (eye) .3-4X A DAY 04/21/25
Review of Systems
-
History Source: Patient
A 12 point ROS was completed and negative except as noted: Yes
Constitutional: Reports Fever, Fatigue and Chills
EENT: Denies Sore Throat
Respiratory: Reports Cough; Denies Trouble Breathing
Cardiac: Denies Chest Pain or Palpitations
Abdomen/GI: Denies Abdominal Pain, Nausea, Vomiting or Diarrhea
: Denies Dysuria or Frequency
Musculoskeletal: Denies Joint Pain or Edema
Neurological: Reports Headache and Weakness; Denies Dizzy
Psych: Denies Depression or Anxiety
Physical Exam
Vital Signs
Vital Signs
Temp Pulse Resp BP Pulse Ox
99.9 F 77 25 131/70 97
04/20/25 23:20 04/21/25 01:00 04/21/25 01:00 04/21/25 01:00 04/21/25 01:00
Physical Exam
General: Other (84y M in no acute distress.)
HEENT: Moist mucous membranes and Other (L eye prosthesis.)
Respiratory: Other (Coarse breath sounds throughout with scattered squeaks / wheezes.)
Cardiac: S1/S2, Regular Rhythm and Murmur (II/ GALINDO)
GI: Soft, Non Tender, Non Distended and Normal Bowel Sounds
Musculoskeletal: No Clubbing, No Cyanosis and No Edema
Neuro: AO x 3
Laboratory Results
-
04/20/25 23:49
04/20/25 23:49
Laboratory Results
Total Bilirubin 0.3 mg/dl (0.2-1.3) 04/20/25 23:49
AST 24 U/L (17-59) 04/20/25 23:49
ALT 24 U/L (0-50) 04/20/25 23:49
Alkaline Phosphatase 42 U/L (38-126) 04/20/25 23:49
Impression/Plan
-
A/P: Patient is an 84y M with PMH significant for hypertension, DM-II and hypothyroidism who presents to ED complaining of cough, fatigue and weakness x 24 hours.
COVID-19 Infection
Ambulatory Dysfunction
Generalized Weakness
- Observe overnight for further evaluation and treatment.
- Patient states that he is up to date with vaccinations / boosters.
- Not hypoxemic and no complaints of dyspnea - though has cough / coarse breath sounds.
- CXR with increased interstitial markings c/w viral pneumonia.
- Supportive care, albuterol MDI, mucolytics, cough suppressants, etc.
- Follow for any hypoxemia or other complications.
- Paxlovid BID (renal dose).
- Hold statin during Paxlovid course.
- Follow proper precautions.
DM-II with Peripheral Neuropathy
- Stable. Hold PO medications acutely.
- Follow glucose and cover with SSI if needed.
- Update A1C.
Benign Hypertension
- Stable. Continue home regimen with holding parameters.
- Monitor for BP control and adjust regimen as needed.
Valvular Heart Disease
- Stable. Echo done 06/2024 with normal LVEF and stable valvular disease.
Hypothyroidism
- Check TFTs and adjust T4 replacement if needed.
Glaucoma
- Continue usual home drops.
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
DVT Prophylaxis: Lovenox
Code Status: Full
--- NOTE | 2025-04-21 04:37 | PTCARENOTE ---
04/21/2025 - PT admitted to room 2139 from ED @ 03:15. PT transferred from stretcher to bed with 1 person assit. PT oriented to room, call adams, plan of care discussed. PT AAOX3 and able to participate in admission questions. Placed bed alarm for PT
safety. Assessment as documented.
[2025-04-21] MEDS: SYNTHROID 50 MCG PO (06:41)
[2025-04-21 07:01] LABS: Hematocrit 38.6 % (39.0-52.0); Hemoglobin 13.0 g/dL (13.0-18.0); Mean Corp Hgb Conc. 33.7 g/dL (33.0-37.0); Mean Corpuscular Volume 81.6 fL (80.0-94.0); Platelet Count 189 10^3/uL (130-400); Red Cell Dist. Width 16.6 % (11.5-14.5)
[2025-04-21 07:23] LABS: Blood Urea Nitrogen 21 mg/dl (9-20); Calcium 9.2 mg/dl (8.4-10.2); Carbon Dioxide 20 mmol/L (22-30); Chloride 109 mmol/L (98-107); Estimated Creatinine Clearance 47 ml/min; Glucose 104 mg/dl (70-99); Potassium 4.1 mmol/L (3.5-5.1); Sodium 138 mmol/L (135-145); eGFR > 60.00
[2025-04-21 07:27] LABS: C-Reactive Protein 34.50 mg/L (0.0-10.00)
--- NOTE | 2025-04-21 08:25 | W.PN.HOSP.TC ---
Addendum entered and electronically signed by Dom Billings DO 04/21/25 13:56:
TSH 0.87
Medically stable for discharge to SNF. Assessed by PT. Informed case management and nursing. Nursing reports to me that agrees with SNF. I tried to reach the and daughter on the phone but got voicemail.
Original Note:
Today's Communication/Plan
-
PT/OT
TSH
Assessment / Plan
Assessment / Plan
Gen-AAOx3, NAD
HEENT-NC, AT, anicteric, clear oral mm
Neck-supple
CV-reg, no M, +S1/S2
Lungs-clear B/L
Abd-soft, NT, ND
Ext-no edema
Musculoskeletal-no cyanosis, clubbing
Skin-warm and dry
Neuro-grossly non-focal
Psych-calm, cooperative
COVID-19 infection -without hypoxia or pneumonia. Chest x-ray clear. Continue Paxlovid. Last vaccination was 2023.
Recommend COVID vaccination in 12 weeks.
Ambulatory dysfunction -with generalized weakness due to COVID infection. PT/OT.
Patient interested in home PT or outpatient PT rather than rehab.
Although he is on Parkinson medications patient states he does not have Parkinson's disease. He states the meds help his drooling.
DM2 without hyperglycemia -hemoglobin A1c pending. Glucose 104 this morning.
At home he is on glipizide and sitagliptin. In the hospital we will use low resistance NovoLog scale along with sitagliptin.
Hyperlipidemia -holding statin on Paxlovid.
Peripheral neuropathy due to diabetes
Valvular heart disease
Essential hypertension -stable.
Hypothyroidism -levothyroxine. Check TSH.
Glaucoma
Full code
Anticipated Discharge: Within 24 hours
Subjective/Interval History
-
Date of Service: April 21, 2025
Patient seen and examined. Feeling stronger today. Still with cough. Denies shortness of breath
Objective Data
-
Labs:
Laboratory Results
04/20/25 04/21/25
23:49 06:45
WBC 8.8 9.2
Hgb 12.5 L 13.0
Hct 38.0 L 38.6 L
Plt Count 190 189
Sodium 140 138
Potassium 4.3 4.1
Chloride 109 H 109 H
Carbon Dioxide 23 20 L
BUN 22 H 21 H
Creatinine 1.3 1.0
Glucose 108 H 104 H
Calcium 8.9 9.2
Total Bilirubin 0.3
AST 24
ALT 24
Alkaline Phosphatase 42
Vital Signs:
Vital Signs
Temp Pulse Resp BP Pulse Ox
98.2 F 76 20 134/71 99
04/21/25 07:00 04/21/25 07:00 04/21/25 07:00 04/21/25 07:00 04/21/25 07:00
Review of Systems
-
History Source: Patient
All other systems: Reviewed and negative
[2025-04-21 08:43] LABS: Glucose - Point of Care 101 mg/dl (70-99)
[2025-04-21] MEDS: NOVOLOG FLEXPEN-LOW RESISTANCE SC ×2 (08:43→16:48)
[2025-04-21] MEDS: ZESTRIL 20 MG PO (08:45)
[2025-04-21] MEDS: JANUVIA 100 MG PO (08:46)
[2025-04-21] MEDS: COREG 6.25 MG PO ×2 (08:46→21:27)
[2025-04-21] MEDS: SINEMET 25-100 1 TABLET PO ×3 (08:46→21:27)
[2025-04-21] MEDS: FOLVITE 2 MG PO (08:46)
[2025-04-21] MEDS: LYRICA 100 MG PO ×2 (08:46→21:27)
[2025-04-21] MEDS: PROTONIX 40 MG PO (08:46)
[2025-04-21] MEDS: TRUSOPT 2% OPHTHALMIC SOLUTION 1 DROP RIGHT EYE ×2 (08:47→21:27)
[2025-04-21] MEDS: TIMOPTIC 0.5% OPHTHALMIC SOLUTION 1 DROP RIGHT EYE ×2 (08:47→21:28)
[2025-04-21] MEDS: MUCINEX 600 MG PO ×2 (08:47→21:27)
[2025-04-21] MEDS: PAXLOVID 150-100 MG DOSE PACK 1 DOSE PO ×2 (08:47→21:42)
[2025-04-21 09:39] LABS: TSH 0.87 uIU/ml (0.47-4.68)
[2025-04-21 10:35] LABS: Glycohemoglobin (HgbA1c) 7.6 % (4.0-5.6)
[2025-04-21 12:03] LABS: Glucose - Point of Care 174 mg/dl (70-99)
[2025-04-21] MEDS: NOVOLOG FLEXPEN-LOW RESISTANCE 1 UNITS SC (13:07)
--- NOTE | 2025-04-21 13:40 | CM ---
Reviewed the chart notes and spoke with the patient. The patient is admitted under observational status. The [facility] letter was provided and explained. The patient had no questions with regards to the letter.
The patient resides with his spouse in a one story home with one step to enter. The patient reports only DME is a rolling walker, shower chair, and rail. The patient reports no VN or SNF in the past. The patient confirmed pharmacy of choice is
[facility]. RINA continues to be available to patient/family and is monitoring medical plan for needs at discharge.
Plan: Discharge plans will depend on the patient's progress.
[2025-04-21 16:48] LABS: Glucose - Point of Care 123 mg/dl (70-99)
[2025-04-21] MEDS: LOVENOX 40 MG SC (17:10)
[2025-04-21 21:25] LABS: Glucose - Point of Care 136 mg/dl (70-99)
[2025-04-21] MEDS: PEPCID 20 MG PO (21:27)
[2025-04-21] MEDS: XALATAN OPHTHALMIC SOLUTION 1 DROP RIGHT EYE (21:28)
[2025-04-22] MEDS: SYNTHROID 50 MCG PO (04:19)
[2025-04-22 05:05] VITALS: BMI 25.2
[2025-04-22 07:00] VITALS: BP 118/65
--- NOTE | 2025-04-22 08:08 | W.PN.HOSP.TC ---
Today's Communication/Plan
-
Add steroids
Albuterol as needed
Mucinex
Stool studies
PT/OT
Assessment / Plan
Assessment / Plan
Gen-AAOx3, NAD
HEENT-NC, AT, anicteric, clear oral mm
Neck-supple
CV-reg, no M, +S1/S2
Lungs-wheezing bilaterally
Abd-soft, NT, ND
Ext-no edema
Musculoskeletal-no cyanosis, clubbing
Skin-warm and dry
Neuro-grossly non-focal
Psych-calm, cooperative
Acute COVID-19 bronchitis -without hypoxia or pneumonia. Chest x-ray clear. Continue Paxlovid. Last vaccination was 2023.
Recommend COVID vaccination in 12 weeks.
Add steroids given new onset wheezing. Albuterol MDI as needed. Continue Mucinex.
Acute diarrhea -possibly due to COVID infection. Will check stool studies for other etiologies.
Ambulatory dysfunction -with generalized weakness due to COVID infection. PT/OT.
Although he is on Parkinson medications patient states he does not have Parkinson's disease. He states the meds help his drooling.
DM2 without hyperglycemia -hemoglobin A1c 7.6%. Glucoses controlled for the most part.
At home he is on glipizide and sitagliptin. In the hospital we will use low resistance NovoLog scale along with sitagliptin.
Hyperlipidemia -holding statin on Paxlovid.
Peripheral neuropathy due to diabetes
Valvular heart disease
Essential hypertension -stable.
Hypothyroidism -levothyroxine. TSH 0.87.
Glaucoma
Full code
Dispo -SNF on discharge, likely Wednesday if stable.
Anticipated Discharge: Within 24 hours
Subjective/Interval History
-
Date of Service: April 22, 2025
Patient seen and examined. Complaining of cough. Diarrhea.
Objective Data
-
Vital Signs:
Vital Signs
Temp Pulse Resp BP Pulse Ox
98.8 F 82 20 100/56 95
04/21/25 23:37 04/21/25 23:37 04/21/25 23:37 04/21/25 23:37 04/21/25 23:37
I&O
04/21/25 04/22/25 04/23/25
06:59 06:59 06:59
Intake Total 1560 / 1560
Balance 1560 / 1560
Review of Systems
-
History Source: Patient
All other systems: Reviewed and negative
[2025-04-22] MEDS: DRISDOL (VITAMIN D2) 50000 UNITS PO (08:23)
[2025-04-22 08:29] LABS: Glucose - Point of Care 110 mg/dl (70-99)
[2025-04-22] MEDS: NOVOLOG FLEXPEN-LOW RESISTANCE SC (09:03)
[2025-04-22] MEDS: PAXLOVID 150-100 MG DOSE PACK 1 DOSE PO ×2 (09:05→20:20)
[2025-04-22] MEDS: SINEMET 25-100 1 TABLET PO ×3 (09:06→21:07)
[2025-04-22] MEDS: ZESTRIL 20 MG PO (09:06)
[2025-04-22] MEDS: JANUVIA 100 MG PO (09:06)
[2025-04-22] MEDS: FOLVITE 2 MG PO (09:06)
[2025-04-22] MEDS: COREG 6.25 MG PO ×2 (09:07→20:21)
[2025-04-22] MEDS: LYRICA 100 MG PO ×2 (09:07→20:24)
[2025-04-22] MEDS: MUCINEX 600 MG PO ×2 (09:07→20:21)
[2025-04-22] MEDS: PROTONIX 40 MG PO (09:07)
[2025-04-22] MEDS: TRUSOPT 2% OPHTHALMIC SOLUTION 1 DROP RIGHT EYE ×2 (09:08→20:20)
[2025-04-22] MEDS: TIMOPTIC 0.5% OPHTHALMIC SOLUTION 1 DROP RIGHT EYE ×2 (09:08→20:20)
[2025-04-22] MEDS: DECADRON 6 MG IV (09:12)
--- NOTE | 2025-04-22 09:46 | CM ---
Addendum entered by Tiffanie Ruiz RN 04/22/25 14:32:
IMM provided as the patient had a change in level of care. CM spoke with the patient and spouse at the bedside regarding recommendations of rehab. Patient's spouse voice concern that she is unable to care for the patient in this condition and
that he had previously been at [facility] for rehab. Spouse requesting rehab, patient not in agreement with rehab.
Original Note:
Reviewed the chart notes. RINA spoke with Emery from [facility]. Patient is not listed as eligible for [facility]. SNF placement would need to be private pay as patient's primary insurance is Medicare.
[2025-04-22 12:29] LABS: Glucose - Point of Care 203 mg/dl (70-99)
[2025-04-22] MEDS: NOVOLOG FLEXPEN-LOW RESISTANCE 2 UNITS SC (12:30)
[2025-04-22 13:46] VITALS: BP 115/55; BP 84/60; PULSE 72; O2SAT 96
[2025-04-22 15:00] VITALS: BP 104/61
[2025-04-22] MEDS: LOVENOX 40 MG SC (17:23)
[2025-04-22 17:30] LABS: Glucose - Point of Care 171 mg/dl (70-99)
[2025-04-22] MEDS: NOVOLOG FLEXPEN-LOW RESISTANCE 1 UNITS SC (17:35)
[2025-04-22] MEDS: TYLENOL 650 MG PO (20:31)
[2025-04-22] MEDS: XALATAN OPHTHALMIC SOLUTION 1 DROP RIGHT EYE (21:06)
[2025-04-22] MEDS: PEPCID 20 MG PO (21:07)
[2025-04-22] MEDS: TESSALON PERLES 200 MG PO (21:09)
[2025-04-22 21:21] LABS: Glucose - Point of Care 206 mg/dl (70-99)
[2025-04-22 23:40] VITALS: BP 110/74
[2025-04-23] MEDS: SYNTHROID 50 MCG PO (05:44)
[2025-04-23 05:58] VITALS: BMI 25.3
[2025-04-23 07:10] VITALS: BP 144/73
[2025-04-23 08:14] LABS: Glucose - Point of Care 146 mg/dl (70-99)
[2025-04-23] MEDS: NOVOLOG FLEXPEN-LOW RESISTANCE SC ×2 (08:14→12:53)
[2025-04-23] MEDS: JANUVIA 100 MG PO (08:52)
[2025-04-23] MEDS: PAXLOVID 150-100 MG DOSE PACK 1 DOSE PO ×2 (08:52→20:06)
[2025-04-23] MEDS: PROTONIX 40 MG PO (08:52)
[2025-04-23] MEDS: FOLVITE 2 MG PO (08:53)
[2025-04-23] MEDS: DECADRON 6 MG IV (08:53)
[2025-04-23] MEDS: TIMOPTIC 0.5% OPHTHALMIC SOLUTION 1 DROP RIGHT EYE ×2 (08:53→20:06)
[2025-04-23] MEDS: LYRICA 100 MG PO ×2 (08:53→20:06)
[2025-04-23] MEDS: ZESTRIL 20 MG PO (08:53)
[2025-04-23] MEDS: SINEMET 25-100 1 TABLET PO ×3 (08:53→21:18)
[2025-04-23] MEDS: TRUSOPT 2% OPHTHALMIC SOLUTION 1 DROP RIGHT EYE ×2 (08:53→20:06)
[2025-04-23] MEDS: MUCINEX 600 MG PO ×2 (08:53→20:06)
[2025-04-23] MEDS: COREG 6.25 MG PO ×2 (08:54→20:06)
[2025-04-23 10:14] VITALS: BP 122/64; PULSE 70; O2SAT 99
[2025-04-23 11:40] LABS: Glucose - Point of Care 176 mg/dl (70-99)
--- NOTE | 2025-04-23 11:45 | CM ---
Addendum entered by Lola Torrez 04/23/25 16:33:
Patient states that she has Alzheimers, and does not want patient to go home, Patient daughter to arrive home from [place] tomorrow. Patient does not want me to send a referral to SNF and wants [facility] for home health. CM will continue to
follow for discharge planning.
Plan; home with VN
Addendum entered by Lola Torrez 04/23/25 12:31:
Physician updated patient that patient did not qualify for SNF, per therapy patient recommending VN supports. CM spoke with patient and will update referral to agency of choice; [facility]. Patient to come to see patient later today. CM will
send updated clinicals to [facility].
Original Note:
Patient called stating she wanted to talk to patient physician and that she was very concerned about patient ability to return home due to severe fall recently. CM updated physician and will call back to patient regarding discharge
planning needs.
Plan; SNF vs home with no needs.
--- NOTE | 2025-04-23 11:49 | W.PN.HOSP.TC ---
Today's Communication/Plan
-
possible d/c home
Assessment / Plan
Assessment / Plan
Pt is an 84 year old male
Acute COVID-19 bronchitis--without hypoxia or pneumonia--Chest x-ray clear. Continue Paxlovid dose 01/06 completed. Last vaccination was 2023--Recommend COVID vaccination in 12 weeks-- steroids to PO given new onset wheezing. Albuterol MDI as
needed. Continue Mucinex.
Acute diarrhea -possibly due to COVID infection--resolved
Ambulatory dysfunction -with generalized weakness due to COVID infection. PT/OT--Although he is on Parkinson medications patient states he does not have Parkinson's disease. He states the meds help his drooling--therapy rec HH
DM2 without hyperglycemia -hemoglobin A1c 7.6%--Restart all home meds--SSI
Hyperlipidemia -holding statin on Paxlovid.
Peripheral neuropathy due to diabetes
Valvular heart disease
Essential hypertension -stable.
Hypothyroidism -levothyroxine. TSH 0.87.
Glaucoma--cont eye drops
Full code
Dispo--home per therapy?
Anticipated Discharge: Today
Subjective/Interval History
-
Date of Service: April 23, 2025
pt feeling much improved
Objective Data
-
Vital Signs:
max temp for 24 hours
04/22/25
23:40
Temp 97.8 F
Vital Signs
Temp Pulse Resp BP Pulse Ox
97.6 F 70 16 144/73 98
04/23/25 07:10 04/23/25 07:10 04/23/25 07:10 04/23/25 08:53 04/23/25 07:10
I&O
04/22/25 04/23/25 04/24/25
06:59 06:59 06:59
Intake Total 1560 / 1560 1140 / 1140
Output Total 750 / 750
Balance 1560 / 1560 390 / 390
Review of Systems
-
All other systems: Reviewed and negative
Physical Exam
-
General: Well Developed, Well Nourished and No Apparent Distress
HEENT: Normocephalic and Atraumatic
Respiratory: Clear to Auscultation; Negative Wheezes or Rhonchi
Cardiac: Regular Rhythm and S1/S2; Negative Murmur
GI: Soft, Nontender, Nondistended and Normal Bowel Sounds
Musculoskeletal: No Clubbing, No Cyanosis and No Edema
Neuro: Awake
Psych: Calm
[2025-04-23] MEDS: NOVOLOG FLEXPEN-LOW RESISTANCE 1 UNITS SC (13:51)
[2025-04-23 15:20] VITALS: BP 141/66
[2025-04-23 16:51] LABS: Glucose - Point of Care 200 mg/dl (70-99)
[2025-04-23] MEDS: NOVOLOG FLEXPEN-LOW RESISTANCE 2 UNITS SC (16:51)
[2025-04-23] MEDS: LOVENOX SC (17:23)
[2025-04-23] MEDS: PEPCID 20 MG PO (21:18)
[2025-04-23] MEDS: XALATAN OPHTHALMIC SOLUTION 1 DROP RIGHT EYE (21:18)
[2025-04-23 22:10] LABS: Glucose - Point of Care 191 mg/dl (70-99)
[2025-04-23 23:13] VITALS: BP 138/73
[2025-04-24] MEDS: TESSALON PERLES 200 MG PO (04:26)
[2025-04-24] MEDS: SYNTHROID 50 MCG PO (04:27)
[2025-04-24 05:52] LABS: Hematocrit 37.2 % (39.0-52.0); Hemoglobin 12.7 g/dL (13.0-18.0); Mean Corp Hgb Conc. 34.1 g/dL (33.0-37.0); Mean Corpuscular Volume 80.0 fL (80.0-94.0); Platelet Count 223 10^3/uL (130-400); Red Cell Dist. Width 16.9 % (11.5-14.5)
[2025-04-24 06:00] VITALS: BMI 25.0
[2025-04-24 06:17] LABS: Blood Urea Nitrogen 31 mg/dl (9-20); Calcium 9.5 mg/dl (8.4-10.2); Carbon Dioxide 17 mmol/L (22-30); Chloride 111 mmol/L (98-107); Estimated Creatinine Clearance 47 ml/min; Glucose 164 mg/dl (70-99); Magnesium 1.6 mg/dl (1.6-2.3); Potassium 4.3 mmol/L (3.5-5.1); Sodium 139 mmol/L (135-145); eGFR > 60.00
[2025-04-24 07:55] VITALS: BP 130/67
[2025-04-24 08:04] LABS: Glucose - Point of Care 164 mg/dl (70-99)
[2025-04-24] MEDS: ZETIA 10 MG PO (09:13)
[2025-04-24] MEDS: SINEMET 25-100 1 TABLET PO ×2 (09:13→16:25)
[2025-04-24] MEDS: FOLVITE 2 MG PO (09:13)
[2025-04-24] MEDS: PROTONIX 40 MG PO (09:13)
[2025-04-24] MEDS: JANUVIA 100 MG PO (09:13)
[2025-04-24] MEDS: THERAGRAN 1 TABLET PO (09:13)
[2025-04-24] MEDS: MUCINEX 600 MG PO (09:13)
[2025-04-24] MEDS: ZESTRIL 20 MG PO (09:13)
[2025-04-24] MEDS: GLUCOTROL XL (EXTENDED RELEASE) 2.5 MG PO (09:14)
[2025-04-24] MEDS: COREG 6.25 MG PO (09:14)
[2025-04-24] MEDS: NOVOLOG FLEXPEN-LOW RESISTANCE 1 UNITS SC (09:14)
[2025-04-24] MEDS: DECADRON 6 MG PO (09:14)
[2025-04-24] MEDS: LYRICA 100 MG PO (09:14)
[2025-04-24] MEDS: PAXLOVID 150-100 MG DOSE PACK 1 DOSE PO (09:15)
[2025-04-24] MEDS: TRUSOPT 2% OPHTHALMIC SOLUTION 1 DROP RIGHT EYE (09:16)
[2025-04-24] MEDS: TIMOPTIC 0.5% OPHTHALMIC SOLUTION 1 DROP RIGHT EYE (09:16)
--- NOTE | 2025-04-24 10:41 | CM ---
Patient now for discharge home with VN, liaison made aware. Patient for discharge home tonight when is available at 6:30pm. Patient completed IMM and signed form placed on chart. Patient stated that he would not appeal his discharge. CM will
continue to follow for discharge planning needs.
Plan; home with [facility] to follow.
--- NOTE | 2025-04-24 10:57 | W.PN.HOSP.TC ---
Today's Communication/Plan
-
d/c
Assessment / Plan
Assessment / Plan
Pt is an 84 year old male
Acute COVID-19 bronchitis--without hypoxia or pneumonia--Chest x-ray clear. Continue Paxlovid dose 03/08 completed. Last vaccination was 2023--Recommend COVID vaccination in 12 weeks-- steroids to PO given new onset wheezing. Albuterol MDI as
needed. Continue Mucinex.
Acute diarrhea -possibly due to COVID infection--resolved--no need for C. diff testing
Ambulatory dysfunction -with generalized weakness due to COVID infection. PT/OT--Although he is on Parkinson medications patient states he does not have Parkinson's disease. He states the meds help his drooling--therapy rec HH
DM2 without hyperglycemia -hemoglobin A1c 7.6%--Restart all home meds--SSI
Hyperlipidemia -holding statin on Paxlovid.
Peripheral neuropathy due to diabetes
Valvular heart disease
Essential hypertension -stable.
Hypothyroidism -levothyroxine. TSH 0.87.
Glaucoma--cont eye drops
Full code
Dispo--home per therapy?
Anticipated Discharge: Today
Subjective/Interval History
-
Date of Service: April 24, 2025
pt cleared for d/c
Objective Data
-
Labs:
Laboratory Results
04/24/25
05:22
WBC 15.1 H
Hgb 12.7 L
Hct 37.2 L
Plt Count 223
Sodium 139
Potassium 4.3
Chloride 111 H
Carbon Dioxide 17 L
BUN 31 H
Creatinine 1.0
Glucose 164 H
Calcium 9.5
Vital Signs:
max temp for 24 hours
04/23/25
23:13
Temp 97.5 F
Vital Signs
Temp Pulse Resp BP Pulse Ox
97.8 F 72 16 130/67 99
04/24/25 07:55 04/24/25 07:55 04/24/25 07:55 04/24/25 09:14 04/24/25 07:55
I&O
04/23/25 04/24/25 04/25/25
06:59 06:59 06:59
Intake Total 1140 / 1140 1320 / 1320
Output Total 750 / 750 1400 / 1400
Balance 390 / 390 -80 / -80
Review of Systems
-
All other systems: Reviewed and negative
Physical Exam
-
General: Well Developed, Well Nourished and No Apparent Distress
HEENT: Normocephalic and Atraumatic; Negative Oxygen
Respiratory: Clear to Auscultation; Negative Wheezes or Rhonchi
Cardiac: Regular Rhythm and S1/S2; Negative Murmur
GI: Soft, Nontender, Nondistended and Normal Bowel Sounds
Musculoskeletal: No Clubbing, No Cyanosis and No Edema
Neuro: Awake
Psych: Calm
--- NOTE | 2025-04-24 11:19 | VNURNOTE ---
Home Health Liaison spoke with patient to discuss [facility] nurse/therapy, visits, schedule and homebound status. Patient is agreeable and understands that visits at home will be 2-3 x per week to assess and teach medical management. Patient is aware
that [facility] will contact them for start of care in 1-2 days after discharge from .
[facility] referral completed in [facility].
[2025-04-24 11:57] VITALS: BP 151/83
[2025-04-24 12:59] LABS: Glucose - Point of Care 144 mg/dl (70-99)
[2025-04-24] MEDS: NOVOLOG FLEXPEN-LOW RESISTANCE SC (13:01)
--- NOTE | 2025-04-24 14:21 | W.DCSUMMARY ---
Discharge Summary
Discharge Data
Date of Admission: 04/21/25
Date of Discharge: 04/24/25
-
Pending Results: No
Hospital Course
Primary care physician : Ollie Oates
Principal Discharge diagnosis : Acute COVID-19 bronchitis with acute diarrhea and ambulatory dysfunction
Chronic Discharge diagnosis : Type 2 diabetes mellitus without hyperglycemia, hyperlipidemia, peripheral neuropathy due to diabetes, valvular heart disease, essential hypertension, hypothyroidism, glaucoma
Hospital Course : Patient was an 84-year-old male who came to the emergency department complaining of cough, weakness, and malaise. Patient stated that his symptoms started the day prior to admission and denied any sick contacts. He did have his
COVID and flu boosters in the fall 2023. Cough was nonproductive. He was found to be positive for COVID-19 and had a fever in the emergency department. Patient was admitted.
Problem #1: Acute COVID-19 bronchitis with acute diarrhea and ambulatory dysfunction. Patient was admitted and started on Paxlovid with holding his statin medication. He was weak on admission and diarrhea was also likely due to his COVID
positivity. After IV fluids and Paxlovid treatment, patient is doing much better. He was seen in consultation by physical therapy and Occupational Therapy.
Problem #2: All other medical issues. These include Type 2 diabetes mellitus without hyperglycemia, hyperlipidemia, peripheral neuropathy due to diabetes, valvular heart disease, essential hypertension, hypothyroidism, glaucoma. These medical
issues were stable during his hospitalization. Medications were continued as able.
Patient has been cleared for discharge for home by physical therapy and Occupational Therapy. He is stable for discharge at this time. If there are any questions regarding this dictation or his hospital stay, please do not hesitate to call. Our
office number is [phone].
Time for discharge 31 minutes.
Discharge Plan
-
Patient Disposition: Home with Home Care
Discharge Diagnosis/Procedures: Acute COVID-19 bronchitis without hypoxia, amatory dysfunction resolved, type 2 diabetes mellitus without hyperglycemia, hyperlipidemia, peripheral neuropathy due to diabetes, essential hypertension, hypothyroidism,
glaucoma, valvular heart disease
Condition: Good
Diet: Diabetic, Carb Controlled
Activity: As tolerated
Driving Restrictions: As prior to admission
Bathing Restrictions: None
Other Services: VN, PT and OT
Referrals:
Ollie Oates MD [Family Provider, [facility]] - in less than 1 week
Additional Discharge Medication Instructions: finish 3 more doses of Paxlovid (total 10 doses, you have taken 7 in hospital)
Prescriptions:
New
Paxlovid 150 mg (10)- 100 mg (10) Tablets,Dose Pack
1 ea PO BID Qty: 20 0RF
dexamethasone 2 mg Tablet
6 mg PO DAILY 5 Days Qty: 15 0RF
Continued
levothyroxine 50 mcg Tablet
50 mcg PO DAILY@06
lisinopril 20 mg Tablet
20 mg PO DAILY
fexofenadine 180 mg Tablet
180 mg PO DAILY
lansoprazole 30 mg Capsule,Delayed Release(Dr/Ec)
30 mg PO DAILY
folic acid 1 mg Tablet
2 mg PO DAILY
carvedilol 6.25 mg tablet
6.25 mg PO BID
dorzolamide-timolol 22.3-6.8 mg/mL drops
1 drp RIGHT EYE BID
ergocalciferol (vitamin D2) [Vitamin D2] 1,250 mcg (50,000 unit) capsule
1,250 mcg PO WAITE
ezetimibe 10 mg tablet
10 mg PO DAILY
therapeutic multivitamin Tablet
1 tab PO DAILY
Januvia 100 mg tablet
50 mg PO DAILY Qty: 0 0RF
famotidine 40 mg Tablet
40 mg PO HS
sulfacetamide sodium 10 % Drops
1 drp OPHTHALMIC (EYE) .3-4X A DAY
glipizide 2.5 mg Tablet Extended Release 24hr
2.5 mg PO DAILY
carbidopa-levodopa 25-100 mg Tablet
1 tab PO TID
pregabalin 100 mg Capsule
100 mg PO BID
latanoprost 0.005 % Drops
1 drp OPHTHALMIC (EYE) QPM
Patient Comments:
one drop to R eye nightly
Held
coenzyme Q10 [CoQ-10] 100 mg Capsule
200 mg PO BID
Hold Instructions: start when starting back on your statin
pitavastatin calcium 4 mg Tablet
4 mg PO DAILY
Hold Instructions: continue to hold for 1 more week
Discharge Orders:
Discharge Patient (As Directed); Ordered 04/24/25
Ordered By: Lizbeth Medel
Discharge Date and Time
Print Language: ETHIOPIAN
[2025-04-24 14:41] VITALS: BP 132/76; PULSE 73; O2SAT 98
[2025-04-24 16:27] VITALS: BP 120/72
[2025-04-24 17:03] LABS: Glucose - Point of Care 183 mg/dl (70-99)
== END 2025-04-24 18:13 | disposition home health service (06) | DRG 179 ==
LOC: 2 NORTH 14:24
PROVIDERS: Nurse Practitioner; ADMITTING PHYSICIAN Hospitalist; ATTENDING PHYSICIAN Internal Medicine; EMERGENCY PHYSICIAN Emergency Medicine; FAMILY PHYSICIAN Family Medicine
DX: U07.1 COVID-19 (principal); J20.8 Acute bronchitis due to other specified organisms; E03.9 Hypothyroidism, unspecified; E11.65 Type 2 diabetes mellitus with hyperglycemia; I10 Essential (primary) hypertension; E78.00 Pure hypercholesterolemia, unspecified; E11.42 Type 2 diabetes mellitus with diabetic polyneuropathy; K21.9 Gastro-esophageal reflux disease without esophagitis; Z79.84 Long term (current) use of oral hypoglycemic drugs; Z79.890 Hormone replacement therapy; Z97.0 Presence of artificial eye
CPT/HCPCS: 71046; 80048; 80053; 81003; 82962; 83036; 83735; 84443; 85025; 85027; 85652; 86140; 87502; 87811; 93005; 94640; 97116; 97163; 97166; 97530; 99285

== ENCOUNTER 2025-05-11 19:12 | Emergency (ER) | payer MEDICARE, BC, SELFPAY ==
[2025-05-11 19:14] VITALS: BP 119/60
[2025-05-11 19:49] LABS: Hematocrit 33.8 % (39.0-52.0); Hemoglobin 11.6 g/dL (13.0-18.0); Mean Corp Hgb Conc. 34.3 g/dL (33.0-37.0); Mean Corpuscular Volume 79.9 fL (80.0-94.0); Nucleated Red Blood Cells % 0 % (-); Platelet Count 139 10^3/uL (130-400); Red Cell Dist. Width 17.0 % (11.5-14.5)
[2025-05-11 19:58] LABS: ALT (SGPT) 14 U/L (0-50); AST (SGOT) 20 U/L (17-59); Albumin 3.8 g/dl (3.5-5.0); Alkaline Phosphatase 57 U/L (38-126); Blood Urea Nitrogen 21 mg/dl (9-20); Calcium 9.2 mg/dl (8.4-10.2); Carbon Dioxide 20 mmol/L (22-30); Chloride 107 mmol/L (98-107); Glucose 165 mg/dl (70-99); Potassium 4.3 mmol/L (3.5-5.1); Sodium 135 mmol/L (135-145); Total Protein 6.7 g/dl (6.3-8.2); eGFR > 60.00
[2025-05-11 23:08] VITALS: BP 126/64
--- NOTE | 2025-05-11 23:53 | ED.GENMED ---
History of Present Illness
<Meet Tay DO - Last Filed: 05/13/25 18:03>
General
Chief Complaint: Weakness
Source: patient
Time Seen by Provider: 05/11/25 23:29
History of Present Illness
History of Present Illness:
84-year-old male presents emergency room for evaluation of generalized weakness. Patient evidently was unable to support his own weight when trying to stand getting off the commode this evening. He is fallen a couple times today. Patient denies
any fever, nausea or vomiting. He has no headache. He denies any urinary frequency or pain. Patient states he was recently hospitalized for COVID. He felt like this when he had COVID but began feeling stronger. Now his weakness seems to be as
bad as before.
Past History
<Meet Tay DO - Last Filed: 05/13/25 18:03>
Past History
ED Past Medical History: GERD, HTN, Hypercholesterolemia and NIDDM
ED Past Surgical History: Appendectomy
Social History
Tobacco: Non-smoker
Alcohol: None
Drug: None
Personal:
Living: with family
Phy Exam
<Meet Tay DO - Last Filed: 05/13/25 18:03>
Physical Exam
Physical Exam:
General: Awake, Alert, Oriented X3. No acute distress, appears stated age, chronically ill
Vitals: unremarkable
Head: Atraumatic
Eyes: Pupils equal, EOMI
Throat: Airway intact, no exudates, mildly dry
Neck: Trachea midline
Lungs: Clear and equal b/l
Heart: Regular rate, 3/6 systolic murmurs
Abd: Soft, Nontender, No pulsatile mass
Neuro: No focal weakness
Skin: Warm, dry, no rash
Extremities: pulses equal b/l, no edema
Course
<Meet Tay DO - Last Filed: 05/13/25 18:03>
Orders/Labs/Results
Orders:
Orders
05/11/25 19:20
EKG [Electrocardiogram (*1)] Urgent
Reason for Study: Fatigue / Weakness
05/11/25 19:21
EKG- Treatment ONCE
05/11/25 19:34
CBC/With Diff [Complete Blood Count/With Diff] Urgent
CMP [Comprehensive Metabolic Panel] Urgent
05/11/25 23:50
Straight cath- Treatment ONCE
Urinalysis Reflex To Culture Urgent
Date Specimen was Collected: 05/12/25
Time Specimen was Collected: 02:31
05/12/25 00:00
CR Chest - 2 Views Urgent
Reason For Exam: weakness
05/12/25 00:02
CT Head W/o Iv Contrast Urgent
Reason For Exam: weakness, falls
05/12/25 02:33
Urine Microscopic Reflex Cult Urgent
05/12/25 03:32
Case Management Consult ONCE
Case Management Consult: Discharge Planning
Physical Therapy Consult [Pt Eval And Treat] Urgent
Activity Level: As Tolerated
Abnormal Lab Results
05/11/25 05/12/25
19:34 02:33
RBC 4.23 L 10^6/uL
(4.70-6.10)
Hgb 11.6 L g/dL
(13.0-18.0)
Hct 33.8 L %
(39.0-52.0)
MCV 79.9 L fL
(80.0-94.0)
RDW 17.0 H %
(11.5-14.5)
Absolute Neuts (auto) 7.0 H 10^3/uL
(1.4-6.5)
Absolute Monos (auto) 1.0 H 10^3/uL
(0.1-0.6)
Lymphocytes % 20.4 L %
(20.5-51.1)
Monocytes % 9.9 H %
(1.7-9.3)
Carbon Dioxide 20 L mmol/L
(22-30)
BUN 21 H mg/dl
(9-20)
Glucose 165 H mg/dl
(70-99)
Urine Bacteria (Reflex) Few A
(Negative)
Urine Glucose 4+ A
(Negative)
Urine Albumin (Reflex) 1+ A
(Neg - Trace)
05/11/25 19:34
05/11/25 19:34
Vital Signs
Initial and Last Documented VS:
Initial Vital Signs
Temp Pulse Resp BP Pulse Ox
99.1 F 83 22 119/60 96
05/11/25 19:14 05/11/25 19:14 05/11/25 19:14 05/11/25 19:14 05/11/25 19:14
Last Documented Vital Signs
Temp Pulse Resp BP Pulse Ox
99.1 F 67 22 133/62 97
05/11/25 19:14 05/12/25 14:00 05/12/25 14:00 05/12/25 14:00 05/12/25 12:13
<Sarabjit Frye, DO - Last Filed: 05/12/25 10:03>
Orders/Labs/Results
Orders:
Orders
05/11/25 19:20
EKG [Electrocardiogram (*1)] Urgent
Reason for Study: Fatigue / Weakness
05/11/25 19:21
EKG- Treatment ONCE
05/11/25 19:34
CBC/With Diff [Complete Blood Count/With Diff] Urgent
CMP [Comprehensive Metabolic Panel] Urgent
05/11/25 23:50
Straight cath- Treatment ONCE
Urinalysis Reflex To Culture Urgent
Date Specimen was Collected: 05/12/25
Time Specimen was Collected: 02:31
05/12/25 00:00
CR Chest - 2 Views Urgent
Reason For Exam: weakness
05/12/25 00:02
CT Head W/o Iv Contrast Urgent
Reason For Exam: weakness, falls
05/12/25 02:33
Urine Microscopic Reflex Cult Urgent
05/12/25 03:32
Case Management Consult ONCE
Case Management Consult: Discharge Planning
Physical Therapy Consult [Pt Eval And Treat] Urgent
Activity Level: As Tolerated
Abnormal Lab Results
05/11/25 05/12/25
19:34 02:33
RBC 4.23 L 10^6/uL
(4.70-6.10)
Hgb 11.6 L g/dL
(13.0-18.0)
Hct 33.8 L %
(39.0-52.0)
MCV 79.9 L fL
(80.0-94.0)
RDW 17.0 H %
(11.5-14.5)
Absolute Neuts (auto) 7.0 H 10^3/uL
(1.4-6.5)
Absolute Monos (auto) 1.0 H 10^3/uL
(0.1-0.6)
Lymphocytes % 20.4 L %
(20.5-51.1)
Monocytes % 9.9 H %
(1.7-9.3)
Carbon Dioxide 20 L mmol/L
(22-30)
BUN 21 H mg/dl
(9-20)
Glucose 165 H mg/dl
(70-99)
Urine Bacteria (Reflex) Few A
(Negative)
Urine Glucose 4+ A
(Negative)
Urine Albumin (Reflex) 1+ A
(Neg - Trace)
05/11/25 19:34
05/11/25 19:34
Vital Signs
Initial and Last Documented VS:
Initial Vital Signs
Temp Pulse Resp BP Pulse Ox
99.1 F 83 22 119/60 96
05/11/25 19:14 05/11/25 19:14 05/11/25 19:14 05/11/25 19:14 05/11/25 19:14
Last Documented Vital Signs
Temp Pulse Resp BP Pulse Ox
99.1 F 67 22 133/62 97
05/11/25 19:14 05/12/25 14:00 05/12/25 14:00 05/12/25 14:00 05/12/25 12:13
<Meet Tay DO - Last Filed: 05/13/25 18:03>
MDM/Problems Addressed
Differential Diagnosis Includes:
Urinary tract infection, electrolyte abnormality, subdural, CVA
MDM/Problems Addressed:
Patient presents with generalized weakness. No acute abnormalities found. Patient does not require acute care hospitalization. Will consult case management for penitentiary placement
<Meet Tya DO - Last Filed: 05/13/25 18:03>
*Radiology
Radiology exam reviewed: radiology read reviewed
*Pulse Oximetry
SaO2: 96
Oxygen Mode of Delivery: Room air
Patient hypoxic: no
*EKG
Interpreted by ED Provider?: Yes
Heart Rate: 80
Rate: normal
Interval: first degree heart block
QRS Pattern: left bundle branch block
Ischemia: no ischemia
*Drug Worker Interpretation
Rate: normal
Interpretation: normal
Rhythm: sinus
*Critical Care Note
Total Time (30-74mins, 75-104mins- exclusive of procedures): Not Applicable
<Sarabjit Frye DO - Last Filed: 05/12/25 10:03>
Update Note
Update Note:
Seen by case management. Working on placement for rehab
ED Attending Note
<Meet Tay, DO - Last Filed: 05/13/25 18:03>
-
Portions of this chart may have been created with voice recognition software.� Occasional wrong word or��sound alike� substitutions may have occurred due to the inherent limitations of voice recognition software.
Discharge Plan
Departure
Patient Disposition: [facility]
Date of Disposition: 05/12/25
Time of Disposition: 06:45
Patient with high blood pressure during this ER visit?: No
Condition: Fair
Discharge Problem:
Generalized weakness
Instructions: Generalized Weakness (DC)
Prescriptions:
No Action
levothyroxine 50 mcg Tablet
50 mcg PO DAILY@06
lisinopril 20 mg Tablet
20 mg PO DAILY
fexofenadine 180 mg Tablet
180 mg PO DAILY
lansoprazole 30 mg Capsule,Delayed Release(Dr/Ec)
30 mg PO DAILY
folic acid 1 mg Tablet
2 mg PO DAILY
coenzyme Q10 [CoQ-10] 100 mg Capsule
200 mg PO BID
carvedilol 6.25 mg tablet
6.25 mg PO BID
dorzolamide-timolol 22.3-6.8 mg/mL drops
1 drp RIGHT EYE BID
ergocalciferol (vitamin D2) [Vitamin D2] 1,250 mcg (50,000 unit) capsule
1,250 mcg PO WAITE
ezetimibe 10 mg tablet
10 mg PO DAILY
therapeutic multivitamin Tablet
1 tab PO DAILY
Januvia 100 mg tablet
50 mg PO DAILY Qty: 0 0RF
famotidine 40 mg Tablet
40 mg PO HS
sulfacetamide sodium 10 % Drops
1 drp OPHTHALMIC (EYE) .3-4X A DAY
glipizide 2.5 mg Tablet Extended Release 24hr
2.5 mg PO DAILY
carbidopa-levodopa 25-100 mg Tablet
1 tab PO TID
pregabalin 100 mg Capsule
100 mg PO BID
pitavastatin calcium 4 mg Tablet
4 mg PO DAILY
latanoprost 0.005 % Drops
1 drp OPHTHALMIC (EYE) QPM
Patient Comments:
one drop to R eye nightly
Paxlovid 150 mg (10)- 100 mg (10) Tablets,Dose Pack
1 ea PO BID Qty: 20 0RF
dexamethasone 2 mg Tablet
6 mg PO DAILY 5 Days Qty: 15 0RF
Referrals:
Ollie Oates MD [Family Provider, Family Practice]
Activity Restrictions/Additional Instructions:
Return immediately for fevers, worsening symptoms, chest pain, shortness of breath or any other concerns.
Interventions
Interventions:
*Risk Screen - Suicide Last Done: 05/11/25 19:18
*General Assessment Last Done: 05/11/25 19:18
*Neglect/Abuse Screening Last Done: 05/11/25 19:18
*ED- Fall Risk Assessment Last Done: 05/12/25 05:42
*ED COVID-19 Vaccine History Last Done: 05/12/25 05:42
*Nursing Disposition Last Done: 05/12/25 11:47
ED- Cardiac Assessment Last Done: 05/12/25 00:32
ED- Neurological Assessment Last Done: 05/12/25 00:32
ED- Pulmonary Assessment Last Done: 05/12/25 00:32
Discharge Date and Time
Discharge Date/Time: 05/12/25 14:33
Print Language: CYMRAES
[2025-05-12] VITALS (15 sets, daily range): BP systolic 104–149; BP diastolic 52–73; PULSE 66; O2SAT 98
--- NOTE | 2025-05-12 02:30 | PTCARENOTE ---
2nd blood transfusion of PRBC completed with [place] paper.
[2025-05-12 02:48] LABS: Urine Character Clear (Clear)
[2025-05-12 03:04] LABS: Urine Squamous Cell 0-2 /LPF (Few)
[2025-05-12 03:05] LABS: Urine Red Blood Cell None Seen /HPF (0-2); Urine White Cell 0-2 /HPF (0-5)
--- NOTE | 2025-05-12 03:48 | PTCARENOTE ---
was updated on plan of care to discharge home. stated that the pt was unable to walk. RN told spouse that the pt had stood with minimal assist and ambulated with a walker 62ft with just a stand by for safety. Spouse stated that he is
unable to walk and would not be able t o come home. Attending made aware.
--- NOTE | 2025-05-12 07:28 | EDRN ---
Pt's daughter called and spoke to this RN - states pt is unable to come home due to his inability to stand and get up out of a chair/off toilet. Per daughter, pt fell 3x this week and they feel it's unsafe to bring him home. As of now pt is
discharged and waiting for case management, but will make MD aware.
--- NOTE | 2025-05-12 09:22 | CM ---
Addendum entered by Cece Car 05/12/25 11:22:
Patient has been accepted at [facility] today daughter to transport 1:30pm machine pecan picker, Report [phone] Room A119, physician and nurse are aware.
Addendum entered by Cece Car 05/12/25 09:40:
PCP: Dr. Briones
Pharmacy: [facility] in [place]
Original Note:
business analyst manager reviewed patient's chart and met with patient and patient is currently in ED does not meet criteria for admission, per family patient has had multiple falls and needs placement, they are unable to take patient home, keycase assembler reached
out to patient's daughter and patient and she provided patient's home setup. Patient lives with spouse who is 74y.o in a 1 story home, was independent with adl's and uses a rollator with ambulation, patient is current with VN. patient had recent
admission under OBS was switched to inpatient but did not have a 3 night stay, keycase assembler reviewed options and patient's daughter is agreeable to [facility] and [facility]. [facility] cannot accept patient today, [facility] to review.
Plan; Skilled placement at [facility], private pay.
--- NOTE | 2025-05-12 11:36 | EDRN ---
Pt being admitted to [facility] rm A119, pt to be transported by his daughter who is coming at 1330. Attempted to call report twice and no one picked up. Will try later.
--- NOTE | 2025-05-12 12:34 | EDRN ---
Attempted to call report again, answer from stope miner but no one picked up on the floor.
--- NOTE | 2025-05-12 12:40 | EDRN ---
Report given to Coty
--- NOTE | 2025-05-12 15:33 | EDRN ---
Received a call from Kia from the nursing facility, they said they have no med list for the patient. Made a copy of med list and faxed to them.
== END 2025-05-12 14:33 ==
LOC: EMR 19:12
PROVIDERS: Emergency Medicine; EMERGENCY PHYSICIAN Emergency Medicine; FAMILY PHYSICIAN Family Medicine
DX: R53.1 Weakness (principal); E78.00 Pure hypercholesterolemia, unspecified; I10 Essential (primary) hypertension; E11.9 Type 2 diabetes mellitus without complications; I44.0 Atrioventricular block, first degree; I44.7 Left bundle-branch block, unspecified
CPT/HCPCS: 99284; 70450; 71046; 80053; 81003; 81015; 85025; 93005

== ENCOUNTER 2025-07-12 06:21 | Day surgery (SDC) | payer MEDICARE, BC, SELFPAY ==
[2025-07-12 08:06] LABS: Glucose - Point of Care 135 mg/dl (70-99)
== END 2025-07-12 09:18 | disposition home or self-care (01) ==
LOC: GI 06:21
PROVIDERS: ATTENDING PHYSICIAN Internal Medicine Gastroenterology
DX: D50.9 Iron deficiency anemia, unspecified (principal); K64.8 Other hemorrhoids; R12 Heartburn; K31.89 Other diseases of stomach and duodenum; D12.3 Benign neoplasm of transverse colon; K29.50 Unspecified chronic gastritis without bleeding; K31.A11 Gastric intestinal metaplasia without dysplasia, involving the antrum
CPT/HCPCS: 45380; 43239; 82962; 88305; 88342